=== PATIENT | female | born 1955 | race African-American/Black ===

== ENCOUNTER 2021-08-14 09:19 | Emergency (ER) | payer OTHER ==
--- OUTSIDE RECORDS SUMMARY | 2021-08-14 09:25 | XMS REPORT | Continuity of Care Document ---
:1955 Author Organization [facility] t Address Formerly [facility] [address] [place] [address] Care Team Providers Name Role Phone Doreen Attending Clinician Unavailable JHONATAN Attending Clinician Unavailable DR LIZET Attending Clinician Unavailable MOHSEN Attending Clinician Unavailable DR Sally TRIPP Attending Clinician Unavailable DR HANK Attending Clinician Unavailable DR ESTEFANY Attending Clinician Unavailable DR Doreen WILKES Attending Clinician Unavailable Doreen Admitting Clinician Unavailable Izabella Martinez Admitting Clinician Unavailable DR LIZET Admitting Clinician Unavailable MOHSEN Admitting Clinician Unavailable DR Sally TRIPP Admitting Clinician Unavailable DR HANK Admitting Clinician Unavailable DR ESTEFANY Admitting Clinician Unavailable DR OPAL Admitting Clinician Unavailable Payers Payer Name Policy Type Policy Number Effective Date Expiration Date S [facility] [id number] 2020 2024 PLAN MEDICARE SNP 00:00:00 00:00:00 [place] [id number] 2016 2016 MEDICAID 00:00:00 00:00:00 STAR+PLUS [id number] 1959 00:00:00 [id number] 1959 00:00:00 Problems This patient has no known problems. Allergies, Adverse Reactions, Alerts Allergy Allergy Status Severity Reaction(s) Onset Inactive Treating Comm ents Source Name Type Date Date Clinician lisinopr DA Active U UNKNOWN [facility] 07-31 Clear 00:00: [facility] aspirin DA Active U UNKNOWN [facility] 07-31 Clear 00:00: [facility] tramadol DA Active U UNKNOWN [facility] 07-31 Clear 00:00: [facility] Tramadol DA Active Unknown [facility] Aspirin DA Active Unknown [facility] Lisinopr DA Active Unknown [facility] Medications This patient has no known medications. Vital Signs Vital Name Observation Time Observation Value Comments Source Height 2021-07-27 09:20:00 165.1 CM Weight 2021-07-27 09:20:00 77.11 KG Height 2021-02-22 13:40:00 157.48 CM Weight 2021-02-22 13:40:00 70.76 KG Height 2020-08-26 06:23:00 170.18 CM Weight 2020-08-26 06:23:00 73.93 KG Procedures Procedure Date / Time Performed Performing Clinician Berhane hardy [id number] 2021-07-31 00:00:00 [facility] [id number] 2021-07-31 00:00:00 [facility] [id number] 2021-07-31 00:00:00 [facility] [id number] 2021-07-31 00:00:00 [facility] [id number] 2021-07-31 00:00:00 [facility] [id number] 2021-07-31 00:00:00 [facility] [id number] 2021-07-31 00:00:00 [facility] [id number] 2021-07-31 00:00:00 [facility] Encounters Start End Encounter Admission Attending Care Care Encounter Source Date/Time Date/Time Type Type Clinicians Facility Department ID 2021-07-31 Inpatient CLARE MajonathonALLYSON de dios INTE [id number] [facility] 01:04:00 Yesy [id number] [facility] 2020-09-29 Outpatient JHONATAN [facility] [id number] [place] 01:03:26 [facility] 2020-09-28 Outpatient JHONATAN [facility] [id number] [place] 01:03:23 [facility] 2020-09-26 Outpatient JHONATAN [facility] [id number] [place] 01:03:59 [facility] 2021-07-31 2021-08-12 Inpatient CLARE Logan HCAPM INTE [id number] [facility] 01:04:00 17:25:00 Nkoli 20 [facility] 2021-07-31 2021-07-31 Outpatient CLARE Logan HCACL LABO [id number] [facility] 07:33:00 07:33:00 Nkoli 03 [facility] 2021-07-27 2021-07-30 Inpatient E LIZET [facility] [id number] [place] 12:19:00 21:29:00 LAUREN [facility] 2021-04-27 2021-04-27 Outpatient FERGUSON_LILLY NDDANIELLE [facility] [address] [place] 05:54:00 05:54:00 HN [id number] [facility] 2021-02-22 2021-02-22 Outpatient E JOSEE [facility]CC [id number] [place] 13:37:00 16:19:00 ZUHAIR [facility] 2020-11-19 2020-11-19 Outpatient FERGUSON_JO CRISTOPHER [facility] [address] 02:39:00 02:39:[id number] 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 Negative resultsdo not p reclude SARS-CoV-2 infection and s hould not be usedas the sole basis for patient management deci sions. Negative results should be considered in the context of apatient's recent exposures, hist ory, presence of clinicalsigns a nd symptoms consistent with COVID-19. CBC W/AUTO [id number] 07:52:00 Test Item Value Reference Range Interpretation Comments WHITE BLOOD CELL 14.8 K/mm3 3.5-11.0 H (test code = WBC) RED BLOOD CELL (test 2.61 M/mm3 4.70-6.10 L code = RBC) HEMOGLOBIN (test code 8.1 G/DL 10.4-14.9 L = HGB) HEMATOCRIT (test code 25.0 % 31.5-44.1 L = HCT) MEAN CELL VOLUME 95.8 Fl 84.5-98.6 N (test code = MCV) MEAN CELL HGB (test 31.0 pg 27.0-34.2 N code = MCH) MEAN CELL HGB 32.4 G/DL 31.5-34.0 N CONCETRATION (test code = MCHC) RED CELL DISTRIBUTION 14.6 SD 11.5-14.5 H WIDTH (test code = RDW) PLATELET COUNT (test 431 K/mm3 150-450 N code = PLT) MEAN PLATELET VOLUME 9.90 fL 7.0-10.5 N (test code = MPV) NEUTROPHIL % (test 76.5 % 40-76 H code = NT%) IMMATURE GRANULOCYTE 1.6 % 0.0-5.0 N % (test code = IG%) LYMPHOCYTE % (test 10.5 % 20.5-51.1 L code = LY%) MONOCYTE % (test code 10.3 % 1.7-9.3 H = MO%) EOSINOPHIL % (test 1.0 % 0.0-6.0 N code = EO%) BASOPHIL % (test code 0.1 % 0.0-2.0 N = BA%) NUCLEATED RBC % (test 0.0 /100WBC% 0.0-1.0 N code = NRBC%) NEUTROPHIL # (test 11.3 K/mm3 1.8-7.6 H code = NT#) IMMATURE GRANULOCYTE 0.23 x10 3/uL 0.00-0.03 H # (test code = IG#) LYMPHOCYTE # (test 1.6 K/mm3 0.6-3.2 N code = LY#) MONOCYTE # (test code 1.5 K/mm3 0.3-1.1 H = MO#) EOSINOPHIL # (test 0.2 K/mm3 0.0-0.4 N code = EO#) BASOPHIL # (test code 0.0 K/mm3 0.0-0.1 N = BA#) NUCLEATED RBC # (test 0.0 K/mm3 0.0-0.1 N code = NRBC#) MANUAL DIFF REQUIRED NO DIFF/SCN CRITERIA aSLIDE REVIEW (test code = MDIFF) CONSISTA NT WITH AUTO DIFFERENTI AL. COMPREHENSIVE METABOLIC [id number] 10:17:00 Test Item Value Reference Range Interpretation Comments SODIUM (test code = NA) 138 mmol/L 134-147 N POTASSIUM (test code = 4.4 mmol/L 3.4-5.0 N K) CHLORIDE (test code = 106 mmol/L 100-108 N CL) CARBON DIOXIDE (test 28 mmol/L 21-32 N code = CO2) ANION GAP (test code = 4.0 GAP calc 4.0-15.0 N GAP) GLUCOSE (test code = 105 MG/DL 70-110 N GLU) BLOOD UREA NITROGEN 19 MG/DL 7-18 H (test code = BUN) GLOMERULAR FILTRATION >=60 max estimate >60 RATE (test code = GFR) estGFR CREATININE (test code = 0.8 MG/DL 0.6-1.0 N CREAT) TOTAL PROTEIN (test code 7.0 G/DL 6.4-8.2 N = PROT) ALBUMIN (test code = 2.4 G/DL 3.4-5.0 L ALB) GLOBULIN (test code = 4.6 GM/dL GLOB) ALBUMIN/GLOBULIN RATIO 0.5 RATIO 1.2-2.2 L (test code = A/G) CALCIUM (test code = CA) 9.3 MG/DL 8.5-10.1 N BILIRUBIN TOTAL (test 0.30 MG/DL 0.2-1.2 N code = BILT) SGOT/AST (test code = 54 Unit/L 15-37 H AST) SGPT/ALT (test code = 76 Unit/L 12-78 N ALT) ALKALINE PHOSPHATASE 170 Unit/L 45-117 H TOTAL (test code = ALKP) CBC W/AUTO [id number] 06:29:00 Test Item Value Reference Range Interpretation Comments WHITE BLOOD CELL (test code = 12.9 K/mm3 3.5-11.0 H WBC) RED BLOOD CELL (test code = 2.64 M/mm3 4.70-6.10 L RBC) HEMOGLOBIN (test code = HGB) 8.3 G/DL 10.4-14.9 L HEMATOCRIT (test code = HCT) 25.7 % 31.5-44.1 L MEAN CELL VOLUME (test code = 97.3 Fl 84.5-98.6 N MCV) MEAN CELL HGB (test code = MCH) 31.4 pg 27.0-34.2 N MEAN CELL HGB CONCETRATION 32.3 G/DL 31.5-34.0 N (test code = MCHC) RED CELL DISTRIBUTION WIDTH 14.6 SD 11.5-14.5 H (test code = RDW) PLATELET COUNT (test code = 399 K/mm3 150-450 N PLT) MEAN PLATELET VOLUME (test code 10.10 fL 7.0-10.5 N = MPV) NEUTROPHIL % (test code = NT%) 75.8 % 40-76 N IMMATURE GRANULOCYTE % (test 1.4 % 0.0-5.0 N code = IG%) LYMPHOCYTE % (test code = LY%) 10.9 % 20.5-51.1 L MONOCYTE % (test code = MO%) 10.2 % 1.7-9.3 H EOSINOPHIL % (test code = EO%) 1.5 % 0.0-6.0 N BASOPHIL % (test code = BA%) 0.2 % 0.0-2.0 N NUCLEATED RBC % (test code = 0.0 /100WBC% 0.0-1.0 N NRBC%) NEUTROPHIL # (test code = NT#) 9.8 K/mm3 1.8-7.6 H IMMATURE GRANULOCYTE # (test 0.18 x10 3/uL 0.00-0.03 H code = IG#) LYMPHOCYTE # (test code = LY#) 1.4 K/mm3 0.6-3.2 N MONOCYTE # (test code = MO#) 1.3 K/mm3 0.3-1.1 H EOSINOPHIL # (test code = EO#) 0.2 K/mm3 0.0-0.4 N BASOPHIL # (test code = BA#) 0.0 K/mm3 0.0-0.1 N NUCLEATED RBC # (test code = 0.0 K/mm3 0.0-0.1 N NRBC#) MANUAL DIFF REQUIRED (test code NO DIFF/SCN CRITERIA = MDIFF) CBC W/AUTO [id number] 07:34:00 Test Item Value Reference Range Interpretation Comments WHITE BLOOD CELL (test code = 12.4 K/mm3 3.5-11.0 H WBC) RED BLOOD CELL (test code = 2.41 M/mm3 4.70-6.10 L RBC) HEMOGLOBIN (test code = HGB) 7.8 G/DL 10.4-14.9 L HEMATOCRIT (test code = HCT) 23.3 % 31.5-44.1 L MEAN CELL VOLUME (test code = 96.7 Fl 84.5-98.6 N MCV) MEAN CELL HGB (test code = MCH) 32.4 pg 27.0-34.2 N MEAN CELL HGB CONCETRATION 33.5 G/DL 31.5-34.0 N (test code = MCHC) RED CELL DISTRIBUTION WIDTH 14.6 SD 11.5-14.5 H (test code = RDW) PLATELET COUNT (test code = 420 K/mm3 150-450 N PLT) MEAN PLATELET VOLUME (test code 10.90 fL 7.0-10.5 H = MPV) NEUTROPHIL % (test code = NT%) 72.8 % 40-76 N IMMATURE GRANULOCYTE % (test 1.5 % 0.0-5.0 N code = IG%) LYMPHOCYTE % (test code = LY%) 13.3 % 20.5-51.1 L MONOCYTE % (test code = MO%) 10.5 % 1.7-9.3 H EOSINOPHIL % (test code = EO%) 1.7 % 0.0-6.0 N BASOPHIL % (test code = BA%) 0.2 % 0.0-2.0 N NUCLEATED RBC % (test code = 0.0 /100WBC% 0.0-1.0 N NRBC%) NEUTROPHIL # (test code = NT#) 9.0 K/mm3 1.8-7.6 H IMMATURE GRANULOCYTE # (test 0.18 x10 3/uL 0.00-0.03 H code = IG#) LYMPHOCYTE # (test code = LY#) 1.6 K/mm3 0.6-3.2 N MONOCYTE # (test code = MO#) 1.3 K/mm3 0.3-1.1 H EOSINOPHIL # (test code = EO#) 0.2 K/mm3 0.0-0.4 N BASOPHIL # (test code = BA#) 0.0 K/mm3 0.0-0.1 N NUCLEATED RBC # (test code = 0.0 K/mm3 0.0-0.1 N NRBC#) MANUAL DIFF REQUIRED (test code NO DIFF/SCN CRITERIA = MDIFF) CBC W/AUTO [id number] 05:17:00 Test Item Value Reference Range Interpretation Comments WHITE BLOOD CELL (test code = 13.2 K/mm3 3.5-11.0 H WBC) RED BLOOD CELL (test code = 2.53 M/mm3 4.70-6.10 L RBC) HEMOGLOBIN (test code = HGB) 8.0 G/DL 10.4-14.9 L HEMATOCRIT (test code = HCT) 24.4 % 31.5-44.1 L MEAN CELL VOLUME (test code = 96.4 Fl 84.5-98.6 N MCV) MEAN CELL HGB (test code = MCH) 31.6 pg 27.0-34.2 N MEAN CELL HGB CONCETRATION 32.8 G/DL 31.5-34.0 N (test code = MCHC) RED CELL DISTRIBUTION WIDTH 14.7 SD 11.5-14.5 H (test code = RDW) PLATELET COUNT (test code = 324 K/mm3 150-450 N PLT) MEAN PLATELET VOLUME (test code 10.60 fL 7.0-10.5 H = MPV) NEUTROPHIL % (test code = NT%) 69.9 % 40-76 N IMMATURE GRANULOCYTE % (test 1.1 % 0.0-5.0 N code = IG%) LYMPHOCYTE % (test code = LY%) 16.2 % 20.5-51.1 L MONOCYTE % (test code = MO%) 10.4 % 1.7-9.3 H EOSINOPHIL % (test code = EO%) 2.2 % 0.0-6.0 N BASOPHIL % (test code = BA%) 0.2 % 0.0-2.0 N NUCLEATED RBC % (test code = 0.0 /100WBC% 0.0-1.0 N NRBC%) NEUTROPHIL # (test code = NT#) 9.2 K/mm3 1.8-7.6 H IMMATURE GRANULOCYTE # (test 0.14 x10 3/uL 0.00-0.03 H code = IG#) LYMPHOCYTE # (test code = LY#) 2.1 K/mm3 0.6-3.2 N MONOCYTE # (test code = MO#) 1.4 K/mm3 0.3-1.1 H EOSINOPHIL # (test code = EO#) 0.3 K/mm3 0.0-0.4 N BASOPHIL # (test code = BA#) 0.0 K/mm3 0.0-0.1 N NUCLEATED RBC # (test code = 0.0 K/mm3 0.0-0.1 N NRBC#) MANUAL DIFF REQUIRED (test code NO DIFF/SCN CRITERIA = MDIFF) CBC W/AUTO [id number] 06:57:00 Test Item Value Reference Range Interpretation Comments WHITE BLOOD CELL 13.9 K/mm3 3.5-11.0 H (test code = WBC) RED BLOOD CELL (test 2.51 M/mm3 4.70-6.10 L code = RBC) HEMOGLOBIN (test code 7.9 G/DL 10.4-14.9 L = HGB) HEMATOCRIT (test code 24.3 % 31.5-44.1 L = HCT) MEAN CELL VOLUME 96.8 Fl 84.5-98.6 N (test code = MCV) MEAN CELL HGB (test 31.5 pg 27.0-34.2 N code = MCH) MEAN CELL HGB 32.5 G/DL 31.5-34.0 N CONCETRATION (test code = MCHC) RED CELL DISTRIBUTION 14.6 SD 11.5-14.5 H WIDTH (test code = RDW) PLATELET COUNT (test 274 K/mm3 150-450 N code = PLT) MEAN PLATELET VOLUME 11.50 fL 7.0-10.5 H (test code = MPV) NEUTROPHIL % (test 69.7 % 40-76 N code = NT%) IMMATURE GRANULOCYTE 1.2 % 0.0-5.0 N % (test code = IG%) LYMPHOCYTE % (test 15.0 % 20.5-51.1 L code = LY%) MONOCYTE % (test code 12.4 % 1.7-9.3 H = MO%) EOSINOPHIL % (test 1.4 % 0.0-6.0 N code = EO%) BASOPHIL % (test code 0.3 % 0.0-2.0 N = BA%) NUCLEATED RBC % (test 0.0 /100WBC% 0.0-1.0 N code = NRBC%) NEUTROPHIL # (test 9.7 K/mm3 1.8-7.6 H code = NT#) IMMATURE GRANULOCYTE 0.16 x10 3/uL 0.00-0.03 H # (test code = IG#) LYMPHOCYTE # (test 2.1 K/mm3 0.6-3.2 N code = LY#) MONOCYTE # (test code 1.7 K/mm3 0.3-1.1 H = MO#) EOSINOPHIL # (test 0.2 K/mm3 0.0-0.4 N code = EO#) BASOPHIL # (test code 0.0 K/mm3 0.0-0.1 N = BA#) NUCLEATED RBC # (test 0.0 K/mm3 0.0-0.1 N code = NRBC#) MANUAL DIFF REQUIRED NO DIFF/SCN CRITERIA SLIDE R EVIEW (test code = MDIFF) CONSISTA NT WITH AUTO DIFFERENTI AL. THROMBOPLASTIN TIME [id number] 06:02:00 Test Item Value Reference Range Interpretation Comments THROMBOPLASTIN TIME PARTIAL 35.2 SECONDS 26-35 H (test code = PTT) CBC W/AUTO [id number] 08:17:00 Test Item Value Reference Range Interpretation Comments WHITE BLOOD CELL (test code = 12.5 K/mm3 3.5-11.0 H WBC) RED BLOOD CELL (test code = 2.78 M/mm3 4.70-6.10 L RBC) HEMOGLOBIN (test code = HGB) 8.9 G/DL 10.4-14.9 L HEMATOCRIT (test code = HCT) 27.3 % 31.5-44.1 L MEAN CELL VOLUME (test code = 98.2 Fl 84.5-98.6 N MCV) MEAN CELL HGB (test code = MCH) 32.0 pg 27.0-34.2 N MEAN CELL HGB CONCETRATION 32.6 G/DL 31.5-34.0 N (test code = MCHC) RED CELL DISTRIBUTION WIDTH 14.3 SD 11.5-14.5 N (test code = RDW) PLATELET COUNT (test code = 242 K/mm3 150-450 N PLT) MEAN PLATELET VOLUME (test code 11.30 fL 7.0-10.5 H = MPV) NEUTROPHIL % (test code = NT%) 68.0 % 40-76 N IMMATURE GRANULOCYTE % (test 1.0 % 0.0-5.0 N code = IG%) LYMPHOCYTE % (test code = LY%) 13.8 % 20.5-51.1 L MONOCYTE % (test code = MO%) 15.5 % 1.7-9.3 H EOSINOPHIL % (test code = EO%) 1.3 % 0.0-6.0 N BASOPHIL % (test code = BA%) 0.4 % 0.0-2.0 N NUCLEATED RBC % (test code = 0.0 /100WBC% 0.0-1.0 N NRBC%) NEUTROPHIL # (test code = NT#) 8.5 K/mm3 1.8-7.6 H IMMATURE GRANULOCYTE # (test 0.12 x10 3/uL 0.00-0.03 H code = IG#) LYMPHOCYTE # (test code = LY#) 1.7 K/mm3 0.6-3.2 N MONOCYTE # (test code = MO#) 1.9 K/mm3 0.3-1.1 H EOSINOPHIL # (test code = EO#) 0.2 K/mm3 0.0-0.4 N BASOPHIL # (test code = BA#) 0.1 K/mm3 0.0-0.1 N NUCLEATED RBC # (test code = 0.0 K/mm3 0.0-0.1 N NRBC#) MANUAL DIFF REQUIRED (test code NO DIFF/SCN CRITERIA = MDIFF) BASIC METABOLIC [id number] 06:46:00 Test Item Value Reference Range Interpretation Comments SODIUM (test code = NA) 139 mmol/L 134-147 N POTASSIUM (test code = 4.1 mmol/L 3.4-5.0 N K) CHLORIDE (test code = 110 mmol/L 100-108 H CL) CARBON DIOXIDE (test 24 mmol/L 21-32 N code = CO2) ANION GAP (test code = 5.0 GAP calc 4.0-15.0 N GAP) GLUCOSE (test code = 93 MG/DL 70-110 N GLU) BLOOD UREA NITROGEN 14 MG/DL 7-18 N (test code = BUN) GLOMERULAR FILTRATION >=60 max estimate >60 RATE (test code = GFR) estGFR CREATININE (test code = 0.7 MG/DL 0.6-1.0 N CREAT) CALCIUM (test code = CA) 8.7 MG/DL 8.5-10.1 N THROMBOPLASTIN TIME [id number] 06:44:00 Test Item Value Reference Range Interpretation Comments THROMBOPLASTIN TIME PARTIAL 32.9 SECONDS 26-35 N (test code = PTT) CBC W/AUTO [id number] 23:06:00 Test Item Value Reference Range Interpretation Comments WHITE BLOOD CELL (test code = 13.9 K/mm3 3.5-11.0 H WBC) RED BLOOD CELL (test code = RBC) 2.84 M/mm3 4.70-6.10 L HEMOGLOBIN (test code = HGB) 9.1 G/DL 10.4-14.9 L HEMATOCRIT (test code = HCT) 27.9 % 31.5-44.1 L MEAN CELL VOLUME (test code = 98.2 Fl 84.5-98.6 N MCV) MEAN CELL HGB (test code = MCH) 32.0 pg 27.0-34.2 N MEAN CELL HGB CONCETRATION (test 32.6 G/DL 31.5-34.0 N code = MCHC) RED CELL DISTRIBUTION WIDTH 14.2 SD 11.5-14.5 N (test code = RDW) PLATELET COUNT (test code = PLT) 214 K/mm3 150-450 N MEAN PLATELET VOLUME (test code 11.50 fL 7.0-10.5 H = MPV) NEUTROPHIL % (test code = NT%) % 40-76 N IMMATURE GRANULOCYTE % (test % 0.0-5.0 N code = IG%) LYMPHOCYTE % (test code = LY%) % 20.5-51.1 L MONOCYTE % (test code = MO%) % 1.7-9.3 H EOSINOPHIL % (test code = EO%) % 0.0-6.0 N BASOPHIL % (test code = BA%) % 0.0-2.0 N NUCLEATED RBC % (test code = /100WBC% 0.0-1.0 N NRBC%) NEUTROPHIL # (test code = NT#) K/mm3 1.8-7.6 H IMMATURE GRANULOCYTE # (test x10 3/uL 0.00-0.03 H code = IG#) LYMPHOCYTE # (test code = LY#) K/mm3 0.6-3.2 N MONOCYTE # (test code = MO#) K/mm3 0.3-1.1 H EOSINOPHIL # (test code = EO#) K/mm3 0.0-0.4 N BASOPHIL # (test code = BA#) K/mm3 0.0-0.1 N NUCLEATED RBC # (test code = K/mm3 0.0-0.1 N NRBC#) MANUAL DIFF REQUIRED (test code YES DIFF/SCN CRITERIA = MDIFF) WBC [id number] 23:06:00 Test Item Value Reference Range Interpretation Comments SEGMENTED NEUTROPHILS (test 71 % 40-75 N code = SEG) LYMPHOCYTE (test code = 16 % 18.7-40.6 L LYMPH) BAND NEUTROPHIL (test code 2 % 0-8 N = BAND) ATYPICAL LYMPH (test code = % 0-0 ALYMPH) MONOCYTE (test code = MON) 10 % 3.8-11.4 N EOSINOPHIL (test code = 1 % 0.0-4.1 N EOS) PLATELET ESTIMATE (test ADEQUATE THOUSAND ADEQUATE code = PLTEST) PLATELET MORPHOLOGY (test NORMAL code = PLTMORPH) THROMBOPLASTIN TIME [id number] 14:56:00 Test Item Value Reference Range Interpretation Comments THROMBOPLASTIN TIME PARTIAL 39.7 SECONDS 26-35 H (test code = PTT) BASIC METABOLIC [id number] 05:54:00 Test Item Value Reference Range Interpretation Comments SODIUM (test code = NA) 140 mmol/L 134-147 N POTASSIUM (test code = 3.4 mmol/L 3.4-5.0 N K) CHLORIDE (test code = 109 mmol/L 100-108 H CL) CARBON DIOXIDE (test 26 mmol/L 21-32 N code = CO2) ANION GAP (test code = 5.0 GAP calc 4.0-15.0 N GAP) GLUCOSE (test code = 96 MG/DL 70-110 N GLU) BLOOD UREA NITROGEN 13 MG/DL 7-18 N (test code = BUN) GLOMERULAR FILTRATION >=60 max estimate >60 RATE (test code = GFR) estGFR CREATININE (test code = 0.9 MG/DL 0.6-1.0 N CREAT) CALCIUM (test code = CA) 7.9 MG/DL 8.5-10.1 L THROMBOPLASTIN TIME [id number] 05:48:00 Test Item Value Reference Range Interpretation Comments THROMBOPLASTIN TIME PARTIAL 40.7 SECONDS 26-35 H (test code = PTT) THROMBOPLASTIN TIME [id number] 23:23:00 Test Item Value Reference Range Interpretation Comments THROMBOPLASTIN TIME PARTIAL 50.9 SECONDS 26-35 H (test code = PTT) THROMBOPLASTIN TIME [id number] 16:51:00 Test Item Value Reference Range Interpretation Comments THROMBOPLASTIN TIME PARTIAL 45.1 SECONDS 26-35 H (test code = PTT) COAGULATION TIME [id number] 10:50:00 Test Item Value Reference Range Interpretation Comments COAGULATION TIME ACTIVATED (test 267 SECistat 74-125 H code = ACT) COAGULATION TIME [id number] 10:50:00 Test Item Value Reference Range Interpretation Comments COAGULATION TIME ACTIVATED (test 258 SECistat 74-125 H code = ACT) COAGULATION TIME [id number] 10:50:00 Test Item Value Reference Range Interpretation Comments COAGULATION TIME ACTIVATED (test 160 SECistat 74-125 H code = ACT) CBC W/AUTO [id number] 10:26:00 Test Item Value Reference Range Interpretation Comments WHITE BLOOD CELL (test code = 12.2 K/mm3 3.5-11.0 H WBC) RED BLOOD CELL (test code = 3.10 M/mm3 4.70-6.10 L RBC) HEMOGLOBIN (test code = HGB) 9.9 G/DL 10.4-14.9 L HEMATOCRIT (test code = HCT) 29.6 % 31.5-44.1 L MEAN CELL VOLUME (test code = 95.5 Fl 84.5-98.6 N MCV) MEAN CELL HGB (test code = MCH) 31.9 pg 27.0-34.2 N MEAN CELL HGB CONCETRATION 33.4 G/DL 31.5-34.0 N (test code = MCHC) RED CELL DISTRIBUTION WIDTH 14.3 SD 11.5-14.5 N (test code = RDW) PLATELET COUNT (test code = 188 K/mm3 150-450 N PLT) MEAN PLATELET VOLUME (test code 11.60 fL 7.0-10.5 H = MPV) NEUTROPHIL % (test code = NT%) 73.4 % 40-76 N IMMATURE GRANULOCYTE % (test 0.7 % 0.0-5.0 N code = IG%) LYMPHOCYTE % (test code = LY%) 9.0 % 20.5-51.1 L MONOCYTE % (test code = MO%) 15.9 % 1.7-9.3 H EOSINOPHIL % (test code = EO%) 0.8 % 0.0-6.0 N BASOPHIL % (test code = BA%) 0.2 % 0.0-2.0 N NUCLEATED RBC % (test code = 0.0 /100WBC% 0.0-1.0 N NRBC%) NEUTROPHIL # (test code = NT#) 8.9 K/mm3 1.8-7.6 H IMMATURE GRANULOCYTE # (test 0.08 x10 3/uL 0.00-0.03 H code = IG#) LYMPHOCYTE # (test code = LY#) 1.1 K/mm3 0.6-3.2 N MONOCYTE # (test code = MO#) 1.9 K/mm3 0.3-1.1 H EOSINOPHIL # (test code = EO#) 0.1 K/mm3 0.0-0.4 N BASOPHIL # (test code = BA#) 0.0 K/mm3 0.0-0.1 N NUCLEATED RBC # (test code = 0.0 K/mm3 0.0-0.1 N NRBC#) MANUAL DIFF REQUIRED (test code NO DIFF/SCN CRITERIA = MDIFF) - XR FLUOROSCOPY 0-60 [id number] 08:25:00 [facility] : 1955 Sex: F Name: EMEKA JUSTIN [facility] : 1955 Age/S: 65 / F [id number] [place] [address] [address] Unit #: [id number] Loc: [place] [address] Phys: Yesy Logan MD Acct: [id number] Dis Date: Status: ADM IN PHONE #: [phone] Exam Date: 08/03/20211814 FAX #: Reason: THROMBECTOMY EXAMS: CPT: [id number] XR FLUOROSCOPY 0-60 MIN 24224 Fluoro Time: 161 SEC DAP (Gy m2): Air Kerma (mGy): EXAM: - XR FLUOROSCOPY 0-60 MIN HISTORY: THROMBECTOMY Location code: C3 COMPARISON: None available time of interpretation. FINDINGS: Intraoperative fluoroscopy was provided for Yesy Logan MD. Radiologist was not present for the procedure. 15 fluoroscopy images were obtained. Please see surgical report. IMPRESSION: 1. Asabove. Fluoroscopy time: 2 minutes 41 seconds Cumulative dose: 17.165 mGy at 0825 Reported and signed by: Radha Martinez M.D. CC: Yesy Logan MD; Abel Martinez MD PAGE 1 Signed Report Name[facility] [place] : 1955 Age/S: 65 / F [id number] Unit #: [id number] Loc: [place] [address] Phys: Yesy Logan MD Acct: [id number] Dis Date: Status: ADM IN PHONE #: [phone] Exam Date: 08/03/2021 1815 FAX #: Reason: THROMBECTOMY EXAMS: CPT: [id number] XR FLUOROSCOPY 0-60 MIN 97820 Fluoro Time: 161 SEC DAP (Gy m2): Air Kerma (mGy): <Continued> Technologist: Delfina Barone RT(R)(CT) Trnscb Date/Time: 08/04/2021 (824) [id number] Orig Print D/T: S: 08/04/2021 (3212) PAGE 2 SignedReportBASIC METABOLIC [id number] 06:26:00 Test Item Value Reference Range Interpretation Comments SODIUM (test code = NA) 137 mmol/L 134-147 N POTASSIUM (test code = 3.4 mmol/L 3.4-5.0 N K) CHLORIDE (test code = 106 mmol/L 100-108 N CL) CARBON DIOXIDE (test 24 mmol/L 21-32 N code = CO2) ANION GAP (test code = 7.0 GAP calc 4.0-15.0 N GAP) GLUCOSE (test code = 121 MG/DL 70-110 H GLU) BLOOD UREA NITROGEN 7 MG/DL 7-18 N (test code = BUN) GLOMERULAR FILTRATION >=60 max estimate >60 RATE (test code = GFR) estGFR CREATININE (test code = 0.6 MG/DL 0.6-1.0 N CREAT) CALCIUM (test code = CA) 8.5 MG/DL 8.5-10.1 N THROMBOPLASTIN TIME [id number] 06:22:00 Test Item Value Reference Range Interpretation Comments THROMBOPLASTIN TIME PARTIAL 43.7 SECONDS 26-35 H (test code = PTT) THROMBOPLASTIN TIME [id number] 23:20:00 Test Item Value Reference Range Interpretation Comments THROMBOPLASTIN TIME PARTIAL 116.7 SECONDS 26-35 HH (test code = PTT) CBC W/AUTO [id number] 22:03:00 Test Item Value Reference Range Interpretation Comments WHITE BLOOD CELL (test code = 11.9 K/mm3 3.5-11.0 H WBC) RED BLOOD CELL (test code = 3.34 M/mm3 4.70-6.10 L RBC) HEMOGLOBIN (test code = HGB) 10.6 G/DL 10.4-14.9 N HEMATOCRIT (test code = HCT) 32.4 % 31.5-44.1 N MEAN CELL VOLUME (test code = 97.0 Fl 84.5-98.6 N MCV) MEAN CELL HGB (test code = MCH) 31.7 pg 27.0-34.2 N MEAN CELL HGB CONCETRATION 32.7 G/DL 31.5-34.0 N (test code = MCHC) RED CELL DISTRIBUTION WIDTH 14.5 SD 11.5-14.5 N (test code = RDW) PLATELET COUNT (test code = 189 K/mm3 150-450 N PLT) MEAN PLATELET VOLUME (test code 12.60 fL 7.0-10.5 H = MPV) NEUTROPHIL % (test code = NT%) 67.3 % 40-76 N IMMATURE GRANULOCYTE % (test 0.7 % 0.0-5.0 N code = IG%) LYMPHOCYTE % (test code = LY%) 17.1 % 20.5-51.1 L MONOCYTE % (test code = MO%) 13.3 % 1.7-9.3 H EOSINOPHIL % (test code = EO%) 1.3 % 0.0-6.0 N BASOPHIL % (test code = BA%) 0.3 % 0.0-2.0 N NUCLEATED RBC % (test code = 0.0 /100WBC% 0.0-1.0 N NRBC%) NEUTROPHIL # (test code = NT#) 8.0 K/mm3 1.8-7.6 H IMMATURE GRANULOCYTE # (test 0.08 x10 3/uL 0.00-0.03 H code = IG#) LYMPHOCYTE # (test code = LY#) 2.0 K/mm3 0.6-3.2 N MONOCYTE # (test code = MO#) 1.6 K/mm3 0.3-1.1 H EOSINOPHIL # (test code = EO#) 0.2 K/mm3 0.0-0.4 N BASOPHIL # (test code = BA#) 0.0 K/mm3 0.0-0.1 N NUCLEATED RBC # (test code = 0.0 K/mm3 0.0-0.1 N NRBC#) MANUAL DIFF REQUIRED (test code NO DIFF/SCN CRITERIA = MDIFF) Comment: IF NOT ALREADY DONE WITHIN THE LAST 24 HOURSTHROMBOPLASTIN TIME [id number] 12:20:00 Test Item Value Reference Range Interpretation Comments THROMBOPLASTIN TIME PARTIAL 68.7 SECONDS 26-35 H (test code = PTT) CBC W/AUTO [id number] 08:45:00 Test Item Value Reference Range Interpretation Comments WHITE BLOOD CELL (test code = 11.0 K/mm3 3.5-11.0 N WBC) RED BLOOD CELL (test code = 3.80 M/mm3 4.70-6.10 L RBC) HEMOGLOBIN (test code = HGB) 12.0 G/DL 10.4-14.9 N HEMATOCRIT (test code = HCT) 36.1 % 31.5-44.1 N MEAN CELL VOLUME (test code = 95.0 Fl 84.5-98.6 N MCV) MEAN CELL HGB (test code = MCH) 31.6 pg 27.0-34.2 N MEAN CELL HGB CONCETRATION 33.2 G/DL 31.5-34.0 N (test code = MCHC) RED CELL DISTRIBUTION WIDTH 14.5 SD 11.5-14.5 N (test code = RDW) PLATELET COUNT (test code = 177 K/mm3 150-450 N PLT) MEAN PLATELET VOLUME (test code 12.50 fL 7.0-10.5 H = MPV) NEUTROPHIL % (test code = NT%) 73.1 % 40-76 N IMMATURE GRANULOCYTE % (test 0.5 % 0.0-5.0 N code = IG%) LYMPHOCYTE % (test code = LY%) 11.9 % 20.5-51.1 L MONOCYTE % (test code = MO%) 13.1 % 1.7-9.3 H EOSINOPHIL % (test code = EO%) 1.2 % 0.0-6.0 N BASOPHIL % (test code = BA%) 0.2 % 0.0-2.0 N NUCLEATED RBC % (test code = 0.0 /100WBC% 0.0-1.0 N NRBC%) NEUTROPHIL # (test code = NT#) 8.1 K/mm3 1.8-7.6 H IMMATURE GRANULOCYTE # (test 0.06 x10 3/uL 0.00-0.03 H code = IG#) LYMPHOCYTE # (test code = LY#) 1.3 K/mm3 0.6-3.2 N MONOCYTE # (test code = MO#) 1.4 K/mm3 0.3-1.1 H EOSINOPHIL # (test code = EO#) 0.1 K/mm3 0.0-0.4 N BASOPHIL # (test code = BA#) 0.0 K/mm3 0.0-0.1 N NUCLEATED RBC # (test code = 0.0 K/mm3 0.0-0.1 N NRBC#) MANUAL DIFF REQUIRED (test code NO DIFF/SCN CRITERIA = MDIFF) BASIC METABOLIC [id number] 06:35:00 Test Item Value Reference Range Interpretation Comments SODIUM (test code = NA) 135 mmol/L 134-147 N POTASSIUM (test code = 3.6 mmol/L 3.4-5.0 N K) CHLORIDE (test code = 106 mmol/L 100-108 N CL) CARBON DIOXIDE (test 25 mmol/L 21-32 N code = CO2) ANION GAP (test code = 4.0 GAP calc 4.0-15.0 N GAP) GLUCOSE (test code = 105 MG/DL 70-110 N GLU) BLOOD UREA NITROGEN 9 MG/DL 7-18 N (test code = BUN) GLOMERULAR FILTRATION >=60 max estimate >60 RATE (test code = GFR) estGFR CREATININE (test code = 0.7 MG/DL 0.6-1.0 N CREAT) CALCIUM (test code = CA) 9.2 MG/DL 8.5-10.1 N THROMBOPLASTIN TIME [id number] 06:27:00 Test Item Value Reference Range Interpretation Comments THROMBOPLASTIN TIME PARTIAL 64.9 SECONDS 26-35 H (test code = PTT) THROMBOPLASTIN TIME [id number] 01:04:00 Test Item Value Reference Range Interpretation Comments THROMBOPLASTIN TIME PARTIAL 62.9 SECONDS 26-35 H (test code = PTT) - XR CHEST 1 [id number] 21:09:00 [facility] 1955 Sex: F Name: EMEKA JUSTIN Mineral : 1955 Age/S: 65 / F [id number] [place] [address] Unit #: [id number] Loc: [place] [address] Phys: Glenny Alberts MD Acct: [id number] Dis Date: Status: ADM IN PHONE #: [phone] Exam Date: 08/02/20212054 FAX #: Reason: Post Op EXAMS: CPT: [id number] XR CHEST 1 V 96440 Fluoro Time: DAP (Gy m2): Air Kerma (mGy): HISTORY: Shortness of breath TECHNIQUE: AP chest x-ray COMPARISON: 07/31/21 FINDINGS: Low lung volumes. No pneumothorax. No airspace consolidation or pleural effusion. Elevated r ight hemidiaphragm. Mild cardiomegaly. Mediastinal silhouette is unremarkable. Thoracic spondylosis. IMPRESSION: No radiographic evidence of acute cardiopulmonary process. LOCATION: [facility] Reported and signed by:HERACLIO GAMBOA DO CC: Glenny Alberts MD; Yesy Logan MD; Abel Martinez MD PAGE 1 Signed Report Name: EMEKA JUSTIN Mineral : 1955 Age/S: 65 / F [address] [place] [address] Unit#: [id number] Loc: [place] [address] Phys: Glenny Alberts MD Acct: [id number] Dis Date: Status: ADM IN PHONE #: [phone] Exam Date: 08/02/20212054 FAX #: Reason: Post Op EXAMS: CPT: [id number] XR CHEST 1 V 35500 Fluoro Time: DAP (Gy m2): Air Kerma (mGy): <Continued> Technologist: Lebron Alvarado RT(R) Trnscb Date/Time: 08/02/2021 (2108) CleopatraP1 Orig Print D/T: S: 08/02/2021 (2111) PAGE 2 Signed [id number] 19:58:00 Test Item Value Reference Range Interpretation Comments HEMATOCRIT (test code = HCT) 39.2 % 31.5-44.1 N PLATELET [id number] 19:58:00 Test Item Value Reference Range Interpretation Comments PLATELET COUNT (test code = PLT) 167 K/mm3 150-450 N THROMBOPLASTIN TIME [id number] 19:53:00 Test Item Value Reference Range Interpretation Comments THROMBOPLASTIN TIME PARTIAL 38.9 SECONDS 26-35 H (test code = PTT) COMPREHENSIVE METABOLIC [id number] 13:21:00 Test Item Value Reference Range Interpretation Comments SODIUM (test code = NA) 137 mmol/L 134-147 N POTASSIUM (test code = 3.8 mmol/L 3.4-5.0 N K) CHLORIDE (test code = 109 mmol/L 100-108 H CL) CARBON DIOXIDE (test 24 mmol/L 21-32 N code = CO2) ANION GAP (test code = 4.0 GAP calc 4.0-15.0 N GAP) GLUCOSE (test code = 109 MG/DL 70-110 N GLU) BLOOD UREA NITROGEN 11 MG/DL 7-18 N (test code = BUN) GLOMERULAR FILTRATION >=60 max estimate >60 RATE (test code = GFR) estGFR CREATININE (test code = 0.8 MG/DL 0.6-1.0 N CREAT) TOTAL PROTEIN (test code 6.3 G/DL 6.4-8.2 L = PROT) ALBUMIN (test code = 2.6 G/DL 3.4-5.0 L ALB) GLOBULIN (test code = 3.7 GM/dL GLOB) ALBUMIN/GLOBULIN RATIO 0.7 RATIO 1.2-2.2 L (test code = A/G) CALCIUM (test code = CA) 9.1 MG/DL 8.5-10.1 N BILIRUBIN TOTAL (test 0.90 MG/DL 0.2-1.2 N code = BILT) SGOT/AST (test code = 168 Unit/L 15-37 H AST) SGPT/ALT (test code = 123 Unit/L 12-78 H ALT) ALKALINE PHOSPHATASE 87 Unit/L 45-117 N TOTAL (test code = ALKP) THROMBOPLASTIN TIME [id number] 12:49:00 Test Item Value Reference Range Interpretation Comments THROMBOPLASTIN TIME PARTIAL 33.7 SECONDS 26-35 N (test code = PTT) [id number] 12:49:00 Test Item Value Reference Range Interpretation Comments FIBRINOGEN (test code = FIB) 612 mg/dL 185-453 H CBC W/AUTO [id number] 10:38:00 Test Item Value Reference Range Interpretation Comments WHITE BLOOD CELL (test code = 11.3 K/mm3 3.5-11.0 H WBC) RED BLOOD CELL (test code = 4.00 M/mm3 4.70-6.10 L RBC) HEMOGLOBIN (test code = HGB) 12.5 G/DL 10.4-14.9 N HEMATOCRIT (test code = HCT) 38.6 % 31.5-44.1 N MEAN CELL VOLUME (test code = 96.5 Fl 84.5-98.6 N MCV) MEAN CELL HGB (test code = MCH) 31.3 pg 27.0-34.2 N MEAN CELL HGB CONCETRATION 32.4 G/DL 31.5-34.0 N (test code = MCHC) RED CELL DISTRIBUTION WIDTH 14.7 SD 11.5-14.5 H (test code = RDW) PLATELET COUNT (test code = 160 K/mm3 150-450 N PLT) MEAN PLATELET VOLUME (test code 12.60 fL 7.0-10.5 H = MPV) NEUTROPHIL % (test code = NT%) 74.1 % 40-76 N IMMATURE GRANULOCYTE % (test 0.6 % 0.0-5.0 N code = IG%) LYMPHOCYTE % (test code = LY%) 11.2 % 20.5-51.1 L MONOCYTE % (test code = MO%) 13.2 % 1.7-9.3 H EOSINOPHIL % (test code = EO%) 0.7 % 0.0-6.0 N BASOPHIL % (test code = BA%) 0.2 % 0.0-2.0 N NUCLEATED RBC % (test code = 0.0 /100WBC% 0.0-1.0 N NRBC%) NEUTROPHIL # (test code = NT#) 8.4 K/mm3 1.8-7.6 H IMMATURE GRANULOCYTE # (test 0.07 x10 3/uL 0.00-0.03 H code = IG#) LYMPHOCYTE # (test code = LY#) 1.3 K/mm3 0.6-3.2 N MONOCYTE # (test code = MO#) 1.5 K/mm3 0.3-1.1 H EOSINOPHIL # (test code = EO#) 0.1 K/mm3 0.0-0.4 N BASOPHIL # (test code = BA#) 0.0 K/mm3 0.0-0.1 N NUCLEATED RBC # (test code = 0.0 K/mm3 0.0-0.1 N NRBC#) MANUAL DIFF REQUIRED (test code NO DIFF/SCN CRITERIA = MDIFF) Comment: q6hr labs while lysis ongoingCBC W/AUTO [id number] 05:57:00 Test Item Value Reference Range Interpretation Comments WHITE BLOOD CELL 11.0 K/mm3 3.5-11.0 N (test code = WBC) RED BLOOD CELL (test 4.19 M/mm3 4.70-6.10 L code = RBC) HEMOGLOBIN (test code 13.2 G/DL 10.4-14.9 N = HGB) HEMATOCRIT (test code 39.8 % 31.5-44.1 N = HCT) MEAN CELL VOLUME 95.0 Fl 84.5-98.6 N (test code = MCV) MEAN CELL HGB (test 31.5 pg 27.0-34.2 N code = MCH) MEAN CELL HGB 33.2 G/DL 31.5-34.0 N CONCETRATION (test code = MCHC) RED CELL DISTRIBUTION 14.7 SD 11.5-14.5 H WIDTH (test code = RDW) PLATELET COUNT (test 159 K/mm3 150-450 N code = PLT) MEAN PLATELET VOLUME 12.20 fL 7.0-10.5 H (test code = MPV) NEUTROPHIL % (test 67.4 % 40-76 N code = NT%) IMMATURE GRANULOCYTE 0.5 % 0.0-5.0 N % (test code = IG%) LYMPHOCYTE % (test 13.9 % 20.5-51.1 L code = LY%) MONOCYTE % (test code 16.8 % 1.7-9.3 H = MO%) EOSINOPHIL % (test 1.0 % 0.0-6.0 N code = EO%) BASOPHIL % (test code 0.4 % 0.0-2.0 N = BA%) NUCLEATED RBC % (test 0.0 /100WBC% 0.0-1.0 N code = NRBC%) NEUTROPHIL # (test 7.4 K/mm3 1.8-7.6 N code = NT#) IMMATURE GRANULOCYTE 0.05 x10 3/uL 0.00-0.03 H # (test code = IG#) LYMPHOCYTE # (test 1.5 K/mm3 0.6-3.2 N code = LY#) MONOCYTE # (test code 1.8 K/mm3 0.3-1.1 H = MO#) EOSINOPHIL # (test 0.1 K/mm3 0.0-0.4 N code = EO#) BASOPHIL # (test code 0.0 K/mm3 0.0-0.1 N = BA#) NUCLEATED RBC # (test 0.0 K/mm3 0.0-0.1 N code = NRBC#) MANUAL DIFF REQUIRED NO DIFF/SCN CRITERIA SLIDE R EVIEW (test code = MDIFF) CONSISTA NT WITH AUTO DIFFERENTI AL. THROMBOPLASTIN TIME [id number] 05:19:00 Test Item Value Reference Range Interpretation Comments THROMBOPLASTIN TIME PARTIAL 36.2 SECONDS 26-35 H (test code = PTT) [id number] 05:19:00 Test Item Value Reference Range Interpretation Comments FIBRINOGEN (test code = FIB) 743 mg/dL 185-453 H BASIC METABOLIC [id number] 05:17:00 Test Item Value Reference Range Interpretation Comments SODIUM (test code = NA) 138 mmol/L 134-147 N POTASSIUM (test code = 3.8 mmol/L 3.4-5.0 N K) CHLORIDE (test code = 108 mmol/L 100-108 N CL) CARBON DIOXIDE (test 24 mmol/L 21-32 N code = CO2) ANION GAP (test code = 6.0 GAP calc 4.0-15.0 N GAP) GLUCOSE (test code = 99 MG/DL 70-110 N GLU) BLOOD UREA NITROGEN 10 MG/DL 7-18 N (test code = BUN) GLOMERULAR FILTRATION >=60 max estimate >60 RATE (test code = GFR) estGFR CREATININE (test code = 0.7 MG/DL 0.6-1.0 N CREAT) CALCIUM (test code = CA) 9.1 MG/DL 8.5-10.1 N CBC W/AUTO [id number] 04:41:00 Test Item Value Reference Range Interpretation Comments WHITE BLOOD CELL 12.0 K/mm3 3.5-11.0 H (test code = WBC) RED BLOOD CELL (test 3.82 M/mm3 4.70-6.10 L code = RBC) HEMOGLOBIN (test code 12.3 G/DL 10.4-14.9 N = HGB) HEMATOCRIT (test code 36.8 % 31.5-44.1 N = HCT) MEAN CELL VOLUME 96.3 Fl 84.5-98.6 N (test code = MCV) MEAN CELL HGB (test 32.2 pg 27.0-34.2 N code = MCH) MEAN CELL HGB 33.4 G/DL 31.5-34.0 N CONCETRATION (test code = MCHC) RED CELL DISTRIBUTION 14.6 SD 11.5-14.5 H WIDTH (test code = RDW) PLATELET COUNT (test 154 K/mm3 150-450 N code = PLT) MEAN PLATELET VOLUME 12.10 fL 7.0-10.5 H (test code = MPV) NEUTROPHIL % (test 72.3 % 40-76 N code = NT%) IMMATURE GRANULOCYTE 0.3 % 0.0-5.0 N % (test code = IG%) LYMPHOCYTE % (test 12.4 % 20.5-51.1 L code = LY%) MONOCYTE % (test code 14.1 % 1.7-9.3 H = MO%) EOSINOPHIL % (test 0.6 % 0.0-6.0 N code = EO%) BASOPHIL % (test code 0.3 % 0.0-2.0 N = BA%) NUCLEATED RBC % (test 0.0 /100WBC% 0.0-1.0 N code = NRBC%) NEUTROPHIL # (test 8.7 K/mm3 1.8-7.6 H code = NT#) IMMATURE GRANULOCYTE 0.04 x10 3/uL 0.00-0.03 H # (test code = IG#) LYMPHOCYTE # (test 1.5 K/mm3 0.6-3.2 N code = LY#) MONOCYTE # (test code 1.7 K/mm3 0.3-1.1 H = MO#) EOSINOPHIL # (test 0.1 K/mm3 0.0-0.4 N code = EO#) BASOPHIL # (test code 0.0 K/mm3 0.0-0.1 N = BA#) NUCLEATED RBC # (test 0.0 K/mm3 0.0-0.1 N code = NRBC#) MANUAL DIFF REQUIRED NO DIFF/SCN CRITERIA SLIDE R EDINSON (test code = MDIFF) CONSISTA NT WITH AUTO DIFFERENTI AL. THROMBOPLASTIN TIME [id number] 02:21:00 Test Item Value Reference Range Interpretation Comments THROMBOPLASTIN TIME PARTIAL 34.9 SECONDS 26-35 N (test code = PTT) [id number] 02:21:00 Test Item Value Reference Range Interpretation Comments FIBRINOGEN (test code = FIB) 634 mg/dL 185-453 H CBC W/AUTO [id number] 23:38:00 Test Item Value Reference Interpretation Comments Range WHITE BLOOD CELL TEST NOT 3.5-11.0 H DUPLICATEPr eviously (test code = WBC) PERFORMED reported r esult: 12.0 K/mm3 K/do7Gochqf by: Gaye on 08/01/21:2329~~ ~~~~~~~~~ ~~~~~~~~~~~~~~~ ~~~~~~~~~ ~~~~~ Thi s is a CORRECTED REPOR T RED BLOOD CELL TEST NOT 4.70-6.10 L Previously re ported (test code = RBC) PERFORMED result: 4. 31 M/lu1Tdjfxj M/mm3 by: Esteban7 o n 08/01/21:2330~~ ~~~~~~~~~ ~~~~~~~~~~~~~~~ ~~~~~~~~~ ~~~~~ Thi s is a CORRECTED REPOR T HEMOGLOBIN (test TEST NOT 10.4-14.9 N Previously reported code = HGB) PERFORMED G/DL result: 13.7 G/DLEdited by: Esteban7 o n 08/01/21:233~~ ~~~~~~~~~ ~~~~~~~~~~~~~~~ ~~~~~~~~~ ~~~~~ Thi s is a CORRECTED REPOR T HEMATOCRIT (test TEST NOT 31.5-44.1 N Previously reported code = HCT) PERFORMED % result: 41.0 %E dited by: Gaye on 08/01/21:2331~~ ~~~~~~~~~ ~~~~~~~~~~~~~~~ ~~~~~~~~~ ~~~~~ Thi s is a CORRECTED REPOR T MEAN CELL VOLUME TEST NOT 84.5-98.6 N Previously reported (test code = MCV) PERFORMED Fl result: 95 .1 FlEdited by: Gaye o n 08/01/21:2331~~ ~~~~~~~~~ ~~~~~~~~~~~~~~~ ~~~~~~~~~ ~~~~~ Thi s is a CORRECTED REPOR T MEAN CELL HGB TEST NOT 27.0-34.2 N Previously rep orted (test code = MCH) PERFORMED pg result: 31 .8 pgEdited by: AnaSI7 o n 08/01/21:2331~~ ~~~~~~~~~ ~~~~~~~~~~~~~~~ ~~~~~~~~~ ~~~~~ Thi s is a CORRECTED REPOR T MEAN CELL HGB TEST NOT 31.5-34.0 N Previously rep orted CONCETRATION (test PERFORMED G/DL result: 33.4 G/DLEdited code = MCHC) by: AnaSI7 o n 08/01/21:2334~~ ~~~~~~~~~ ~~~~~~~~~~~~~~~ ~~~~~~~~~ ~~~~~ Thi s is a CORRECTED REPOR T RED CELL TEST NOT 11.5-14.5 N Previously repo rted DISTRIBUTION WIDTH PERFORMED SD result: 1 4.3 SDEdited (test code = RDW) by: Ana CUEVAS7 on 08/01/21:2334~~ ~~~~~~~~~ ~~~~~~~~~~~~~~~ ~~~~~~~~~ ~~~~~ Thi s is a CORRECTED REPOR T PLATELET COUNT TEST NOT 150-450 N Previously re ported (test code = PLT) PERFORMED result: 17 5 K/mi2Uwyxdw K/mm3 by: AnaSI7 o n 08/01/21:2335~~ ~~~~~~~~~ ~~~~~~~~~~~~~~~ ~~~~~~~~~ ~~~~~ Thi s is a CORRECTED REPOR T MEAN PLATELET TEST NOT 7.0-10.5 H Previously rep orted VOLUME (test code PERFORMED fL result: 11 .90 fLEdited = MPV) by: Esteban7 o n 08/01/21:2335~~ ~~~~~~~~~ ~~~~~~~~~~~~~~~ ~~~~~~~~~ ~~~~~ Thi s is a CORRECTED REPOR T NEUTROPHIL % (test TEST NOT 40-76 H Previousl y reported code = NT%) PERFORMED % result: 80.5 %E dited by: Esteban7 on 08/01/21:2335~~ ~~~~~~~~~ ~~~~~~~~~~~~~~~ ~~~~~~~~~ ~~~~~ Thi s is a CORRECTED REPOR T IMMATURE TEST NOT 0.0-5.0 H Previously repo rted GRANULOCYTE % PERFORMED % result: 7.3 %E dited by: (test code = IG%) Esteban7 on 08/01/21:2335~~ ~~~~~~~~~ ~~~~~~~~~~~~~~~ ~~~~~~~~~ ~~~~~ Thi s is a CORRECTED REPOR T LYMPHOCYTE % (test TEST NOT 20.5-51.1 L Previousl y reported code = LY%) PERFORMED % result: 11.3 %E dited by: AnaSI7 on 08/01/21:2335~~ ~~~~~~~~~ ~~~~~~~~~~~~~~~ ~~~~~~~~~ ~~~~~ Thi s is a CORRECTED REPOR T MONOCYTE % (test TEST NOT 1.7-9.3 L Previously reported code = MO%) PERFORMED % result: 0.3 %Ed ited by: Gaye on 08/01/21:2335~~ ~~~~~~~~~ ~~~~~~~~~~~~~~~ ~~~~~~~~~ ~~~~~ Thi s is a CORRECTED REPOR T EOSINOPHIL % (test TEST NOT 0.0-6.0 N Previousl y reported code = EO%) PERFORMED % result: 0.2 %Ed ited by: Gaye on 08/01/21:2335~~ ~~~~~~~~~ ~~~~~~~~~~~~~~~ ~~~~~~~~~ ~~~~~ Thi s is a CORRECTED REPOR T BASOPHIL % (test TEST NOT 0.0-2.0 N Previously reported code = BA%) PERFORMED % result: 0.4 %Ed ited by: AnaSI7 on 08/01/21:2336~~ ~~~~~~~~~ ~~~~~~~~~~~~~~~ ~~~~~~~~~ ~~~~~ Thi s is a CORRECTED REPOR T NUCLEATED RBC % TEST NOT 0.0-1.0 N Previously r eported (test code = PERFORMED result: 0.0 NRBC%) /100WBC% /100WBC%Edited by: Gaye on 08/01/21:2336~~ ~~~~~~~~~ ~~~~~~~~~~~~~~~ ~~~~~~~~~ ~~~~~ Thi s is a CORRECTED REPOR T NEUTROPHIL # (test TEST NOT 1.8-7.6 H Previousl y reported code = NT#) PERFORMED result: 9.7 K/m n7Xmnakc K/mm3 by: Esteban7 o n 08/01/21:2336~~ ~~~~~~~~~ ~~~~~~~~~~~~~~~ ~~~~~~~~~ ~~~~~ Thi s is a CORRECTED REPOR T IMMATURE TEST NOT 0.00-0.03 GRANULOCYTE # PERFORMED x10 (test code = IG#) 3/uL LYMPHOCYTE # (test TEST NOT 0.6-3.2 N Previousl y reported code = LY#) PERFORMED result: 0.9 K/m o0Cwapve K/mm3 by: Esteban7 o n 08/01/21:2336~~ ~~~~~~~~~ ~~~~~~~~~~~~~~~ ~~~~~~~~~ ~~~~~ Thi s is a CORRECTED REPOR T MONOCYTE # (test TEST NOT 0.3-1.1 H Previously reported code = MO#) PERFORMED result: 1.4 K/m n0Hnvswe K/mm3 by: Esteban7 o n 08/01/21:2336~~ ~~~~~~~~~ ~~~~~~~~~~~~~~~ ~~~~~~~~~ ~~~~~ Thi s is a CORRECTED REPOR T EOSINOPHIL # (test TEST NOT 0.0-0.4 N Previousl y reported code = EO#) PERFORMED result: 0.4 K/m n0Nnloed K/mm3 by: Esteban7 o n 08/01/21:2336~~ ~~~~~~~~~ ~~~~~~~~~~~~~~~ ~~~~~~~~~ ~~~~~ Thi s is a CORRECTED REPOR T BASOPHIL # (test TEST NOT 0.0-0.1 N Previously reported code = BA#) PERFORMED result: 0.0 K/m h1Vzucca K/mm3 by: AnaSI7 o n 08/01/21:2336~~ ~~~~~~~~~ ~~~~~~~~~~~~~~~ ~~~~~~~~~ ~~~~~ Thi s is a CORRECTED REPOR T NUCLEATED RBC # TEST NOT 0.0-0.1 N Previously r eported (test code = PERFORMED result: 0.0 K/m p3Eajrsa NRBC#) K/mm3 by: AnaSI7 o n 08/01/21:2336~~ ~~~~~~~~~ ~~~~~~~~~~~~~~~ ~~~~~~~~~ ~~~~~ Thi s is a CORRECTED REPOR T MANUAL DIFF TEST NOT CRITERIA SLIDE REVIEW CO NSISTANT REQUIRED (test PERFORMED WITH AUTO code = MDIFF) DIFF/SCN DIFFERENTIAL.P reviously reported result : NO DIFF/SCNEdited by: AnaSI7 on 08/01/21:2336~~ ~~~~~~~~~ ~~~~~~~~~~~~~~~ ~~~~~~~~~ ~~~~~ Thi s is a CORRECTED REPOR T PATHOLOGIST'S TEST NOT COMMENTS FINDINGS (test PERFORMED code = PATH) EXTERNAL Comment: q6hr labs while lysis ongoingTHROMBOPLASTIN TIME [id number] 18:28:00 Test Item Value Reference Range Interpretation Comments THROMBOPLASTIN TIME PARTIAL 37.0 SECONDS 26-35 H (test code = PTT) [id number] 18:28:00 Test Item Value Reference Range Interpretation Comments FIBRINOGEN (test code = FIB) 653 mg/dL 185-453 H CBC W/AUTO [id number] 18:14:00 Test Item Value Reference Range Interpretation Comments WHITE BLOOD CELL (test code = 11.4 K/mm3 3.5-11.0 H WBC) RED BLOOD CELL (test code = 4.29 M/mm3 4.70-6.10 L RBC) HEMOGLOBIN (test code = HGB) 13.4 G/DL 10.4-14.9 N HEMATOCRIT (test code = HCT) 40.7 % 31.5-44.1 N MEAN CELL VOLUME (test code = 94.9 Fl 84.5-98.6 N MCV) MEAN CELL HGB (test code = MCH) 31.2 pg 27.0-34.2 N MEAN CELL HGB CONCETRATION 32.9 G/DL 31.5-34.0 N (test code = MCHC) RED CELL DISTRIBUTION WIDTH 14.6 SD 11.5-14.5 H (test code = RDW) PLATELET COUNT (test code = 156 K/mm3 150-450 N PLT) MEAN PLATELET VOLUME (test code 12.10 fL 7.0-10.5 H = MPV) NEUTROPHIL % (test code = NT%) 74.7 % 40-76 N IMMATURE GRANULOCYTE % (test 0.4 % 0.0-5.0 N code = IG%) LYMPHOCYTE % (test code = LY%) 11.8 % 20.5-51.1 L MONOCYTE % (test code = MO%) 12.4 % 1.7-9.3 H EOSINOPHIL % (test code = EO%) 0.5 % 0.0-6.0 N BASOPHIL % (test code = BA%) 0.2 % 0.0-2.0 N NUCLEATED RBC % (test code = 0.0 /100WBC% 0.0-1.0 N NRBC%) NEUTROPHIL # (test code = NT#) 8.5 K/mm3 1.8-7.6 H IMMATURE GRANULOCYTE # (test 0.05 x10 3/uL 0.00-0.03 H code = IG#) LYMPHOCYTE # (test code = LY#) 1.3 K/mm3 0.6-3.2 N MONOCYTE # (test code = MO#) 1.4 K/mm3 0.3-1.1 H EOSINOPHIL # (test code = EO#) 0.1 K/mm3 0.0-0.4 N BASOPHIL # (test code = BA#) 0.0 K/mm3 0.0-0.1 N NUCLEATED RBC # (test code = 0.0 K/mm3 0.0-0.1 N NRBC#) MANUAL DIFF REQUIRED (test code NO DIFF/SCN CRITERIA = MDIFF) Comment: q6hr labs while lysis ongoingCBC W/AUTO [id number] 10:32:00 Test Item Value Reference Range Interpretation Comments WHITE BLOOD CELL (test code = 12.0 K/mm3 3.5-11.0 H WBC) RED BLOOD CELL (test code = 4.31 M/mm3 4.70-6.10 L RBC) HEMOGLOBIN (test code = HGB) 13.7 G/DL 10.4-14.9 N HEMATOCRIT (test code = HCT) 41.0 % 31.5-44.1 N MEAN CELL VOLUME (test code = 95.1 Fl 84.5-98.6 N MCV) MEAN CELL HGB (test code = MCH) 31.8 pg 27.0-34.2 N MEAN CELL HGB CONCETRATION 33.4 G/DL 31.5-34.0 N (test code = MCHC) RED CELL DISTRIBUTION WIDTH 14.3 SD 11.5-14.5 N (test code = RDW) PLATELET COUNT (test code = 175 K/mm3 150-450 N PLT) MEAN PLATELET VOLUME (test code 11.90 fL 7.0-10.5 H = MPV) NEUTROPHIL % (test code = NT%) 80.5 % 40-76 H IMMATURE GRANULOCYTE % (test 0.4 % 0.0-5.0 N code = IG%) LYMPHOCYTE % (test code = LY%) 7.3 % 20.5-51.1 L MONOCYTE % (test code = MO%) 11.3 % 1.7-9.3 H EOSINOPHIL % (test code = EO%) 0.3 % 0.0-6.0 N BASOPHIL % (test code = BA%) 0.2 % 0.0-2.0 N NUCLEATED RBC % (test code = 0.0 /100WBC% 0.0-1.0 N NRBC%) NEUTROPHIL # (test code = NT#) 9.7 K/mm3 1.8-7.6 H IMMATURE GRANULOCYTE # (test 0.05 x10 3/uL 0.00-0.03 H code = IG#) LYMPHOCYTE # (test code = LY#) 0.9 K/mm3 0.6-3.2 N MONOCYTE # (test code = MO#) 1.4 K/mm3 0.3-1.1 H EOSINOPHIL # (test code = EO#) 0.0 K/mm3 0.0-0.4 N BASOPHIL # (test code = BA#) 0.0 K/mm3 0.0-0.1 N NUCLEATED RBC # (test code = 0.0 K/mm3 0.0-0.1 N NRBC#) MANUAL DIFF REQUIRED (test code NO DIFF/SCN CRITERIA = MDIFF) Comment: q6hr labs while lysis ongoingCBC W/AUTO [id number] 06:59:00 Test Item Value Reference Range Interpretation Comments WHITE BLOOD CELL 12.9 K/mm3 3.5-11.0 H (test code = WBC) RED BLOOD CELL (test 4.34 M/mm3 4.70-6.10 L code = RBC) HEMOGLOBIN (test code 13.6 G/DL 10.4-14.9 N = HGB) HEMATOCRIT (test code 41.0 % 31.5-44.1 N = HCT) MEAN CELL VOLUME 94.5 Fl 84.5-98.6 N (test code = MCV) MEAN CELL HGB (test 31.3 pg 27.0-34.2 N code = MCH) MEAN CELL HGB 33.2 G/DL 31.5-34.0 N CONCETRATION (test code = MCHC) RED CELL DISTRIBUTION 14.4 SD 11.5-14.5 N WIDTH (test code = RDW) PLATELET COUNT (test 167 K/mm3 150-450 N code = PLT) MEAN PLATELET VOLUME 12.10 fL 7.0-10.5 H (test code = MPV) NEUTROPHIL % (test 77.8 % 40-76 H code = NT%) IMMATURE GRANULOCYTE 0.4 % 0.0-5.0 N % (test code = IG%) LYMPHOCYTE % (test 9.5 % 20.5-51.1 L code = LY%) MONOCYTE % (test code 11.9 % 1.7-9.3 H = MO%) EOSINOPHIL % (test 0.2 % 0.0-6.0 N code = EO%) BASOPHIL % (test code 0.2 % 0.0-2.0 N = BA%) NUCLEATED RBC % (test 0.0 /100WBC% 0.0-1.0 N code = NRBC%) NEUTROPHIL # (test 10.0 K/mm3 1.8-7.6 H code = NT#) IMMATURE GRANULOCYTE 0.05 x10 3/uL 0.00-0.03 H # (test code = IG#) LYMPHOCYTE # (test 1.2 K/mm3 0.6-3.2 N code = LY#) MONOCYTE # (test code 1.5 K/mm3 0.3-1.1 H = MO#) EOSINOPHIL # (test 0.0 K/mm3 0.0-0.4 N code = EO#) BASOPHIL # (test code 0.0 K/mm3 0.0-0.1 N = BA#) NUCLEATED RBC # (test 0.0 K/mm3 0.0-0.1 N code = NRBC#) MANUAL DIFF REQUIRED NO DIFF/SCN CRITERIA SLIDE R LISETHW (test code = MDIFF) CONSISTA NT WITH AUTO DIFFERENTI AL. THROMBOPLASTIN TIME [id number] 05:04:00 Test Item Value Reference Range Interpretation Comments THROMBOPLASTIN TIME PARTIAL 36.2 SECONDS 26-35 H (test code = PTT) [id number] 05:04:00 Test Item Value Reference Range Interpretation Comments FIBRINOGEN (test code = FIB) 598 mg/dL 185-453 H BASIC METABOLIC [id number] 04:57:00 Test Item Value Reference Range Interpretation Comments SODIUM (test code = NA) 137 mmol/L 134-147 N POTASSIUM (test code = 4.0 mmol/L 3.4-5.0 N K) CHLORIDE (test code = 105 mmol/L 100-108 N CL) CARBON DIOXIDE (test 27 mmol/L 21-32 N code = CO2) ANION GAP (test code = 5.0 GAP calc 4.0-15.0 N GAP) GLUCOSE (test code = 112 MG/DL 70-110 H GLU) BLOOD UREA NITROGEN 12 MG/DL 7-18 N (test code = BUN) GLOMERULAR FILTRATION >=60 max estimate >60 RATE (test code = GFR) estGFR CREATININE (test code = 0.8 MG/DL 0.6-1.0 N CREAT) CALCIUM (test code = CA) 8.7 MG/DL 8.5-10.1 N THROMBOPLASTIN TIME [id number] 23:32:00 Test Item Value Reference Range Interpretation Comments THROMBOPLASTIN TIME PARTIAL 39.3 SECONDS 26-35 H (test code = PTT) [id number] 23:32:00 Test Item Value Reference Range Interpretation Comments FIBRINOGEN (test code = FIB) 551 mg/dL 185-453 H THROMBOPLASTIN TIME [id number] 17:21:00 Test Item Value Reference Range Interpretation Comments THROMBOPLASTIN TIME PARTIAL 45.2 SECONDS 26-35 H (test code = PTT) [id number] 17:21:00 Test Item Value Reference Range Interpretation Comments FIBRINOGEN (test code = FIB) 615 mg/dL 185-453 H CBC W/AUTO [id number] 17:00:00 Test Item Value Reference Range Interpretation Comments WHITE BLOOD CELL (test code = 12.3 K/mm3 3.5-11.0 H WBC) RED BLOOD CELL (test code = 4.67 M/mm3 4.70-6.10 L RBC) HEMOGLOBIN (test code = HGB) 14.7 G/DL 10.4-14.9 N HEMATOCRIT (test code = HCT) 44.5 % 31.5-44.1 H MEAN CELL VOLUME (test code = 95.3 Fl 84.5-98.6 N MCV) MEAN CELL HGB (test code = MCH) 31.5 pg 27.0-34.2 N MEAN CELL HGB CONCETRATION 33.0 G/DL 31.5-34.0 N (test code = MCHC) RED CELL DISTRIBUTION WIDTH 14.3 SD 11.5-14.5 N (test code = RDW) PLATELET COUNT (test code = 165 K/mm3 150-450 N PLT) MEAN PLATELET VOLUME (test code 11.70 fL 7.0-10.5 H = MPV) NEUTROPHIL % (test code = NT%) 82.3 % 40-76 H IMMATURE GRANULOCYTE % (test 0.4 % 0.0-5.0 N code = IG%) LYMPHOCYTE % (test code = LY%) 6.5 % 20.5-51.1 L MONOCYTE % (test code = MO%) 10.6 % 1.7-9.3 H EOSINOPHIL % (test code = EO%) 0.1 % 0.0-6.0 N BASOPHIL % (test code = BA%) 0.1 % 0.0-2.0 N NUCLEATED RBC % (test code = 0.0 /100WBC% 0.0-1.0 N NRBC%) NEUTROPHIL # (test code = NT#) 10.1 K/mm3 1.8-7.6 H IMMATURE GRANULOCYTE # (test 0.05 x10 3/uL 0.00-0.03 H code = IG#) LYMPHOCYTE # (test code = LY#) 0.8 K/mm3 0.6-3.2 N MONOCYTE # (test code = MO#) 1.3 K/mm3 0.3-1.1 H EOSINOPHIL # (test code = EO#) 0.0 K/mm3 0.0-0.4 N BASOPHIL # (test code = BA#) 0.0 K/mm3 0.0-0.1 N NUCLEATED RBC # (test code = 0.0 K/mm3 0.0-0.1 N NRBC#) MANUAL DIFF REQUIRED (test code NO DIFF/SCN CRITERIA = MDIFF) Comment: q6hr labs while lysis ongoingTHROMBOPLASTIN TIME [id number] 09:24:00 Test Item Value Reference Range Interpretation Comments THROMBOPLASTIN TIME PARTIAL 63.7 SECONDS 26-35 H (test code = PTT) PROTHROMBIN [id number] 05:40:00 Test Item Value Reference Range Interpretation Comments PT PATIENT (test 12.0 SECONDS 9.3-12.9 N code = PTP) INTERNATIONAL NORMAL 1.05 INR Unit 0.8-1.2 N TARGET RATIO (test code = INR BY IN DICATION INR) Indication INR1. Prophyl axis of venous thrombos is 2.0 - 3. 0 (orthopedic oneyda donna), Prophylaxis of venous thrombos is (other than hig h-risk surgery), Britney tment of Deep Vein Thrombosis/Pulm onary Embolism, Preve ntion of systemic emb olism - Tissue heart va lves, Acute Myocardia l Infarction (to prevent systemic embo lism), Valvular heart disease, Acut e Myocardial Infa rction (to prevent s ystemic embolism), Valv ular heart disease, Atrial Fibrilla tion, Bileaflet mecha nical valve in aortic position.2. Mec hanical prosthetic valv es (high risk), 2.5 - 3.5 Presence of Lupus Anticoagu lant or Antiphospholi pid Antibodies, Pre vention of systemic e mbolism - Acute Myocard ial Infarction (t o prevent recurre nt infarct). THROMBOPLASTIN TIME [id number] 05:40:00 Test Item Value Reference Range Interpretation Comments THROMBOPLASTIN TIME PARTIAL 57.1 SECONDS 26-35 H (test code = PTT) THYROID STIMULATING [id number] 04:54:00 Test Item Value Reference Range Interpretation Comments THYROID STIMULATING HORMONE 3.030 mcIU/ML 0.340-4.820 N (test code = TSH) COMPREHENSIVE METABOLIC [id number] 04:40:00 Test Item Value Reference Range Interpretation Comments SODIUM (test code = NA) 138 mmol/L 134-147 N POTASSIUM (test code = 4.5 mmol/L 3.4-5.0 N K) CHLORIDE (test code = 103 mmol/L 100-108 N CL) CARBON DIOXIDE (test 32 mmol/L 21-32 N code = CO2) ANION GAP (test code = 3.0 GAP calc 4.0-15.0 L GAP) GLUCOSE (test code = 102 MG/DL 70-110 N GLU) BLOOD UREA NITROGEN 18 MG/DL 7-18 N (test code = BUN) GLOMERULAR FILTRATION >=60 max estimate >60 RATE (test code = GFR) estGFR CREATININE (test code = 0.9 MG/DL 0.6-1.0 N CREAT) TOTAL PROTEIN (test code 7.1 G/DL 6.4-8.2 N = PROT) ALBUMIN (test code = 3.2 G/DL 3.4-5.0 L ALB) GLOBULIN (test code = 3.9 GM/dL GLOB) ALBUMIN/GLOBULIN RATIO 0.8 RATIO 1.2-2.2 L (test code = A/G) CALCIUM (test code = CA) 9.3 MG/DL 8.5-10.1 N BILIRUBIN TOTAL (test 0.90 MG/DL 0.2-1.2 N code = BILT) SGOT/AST (test code = 164 Unit/L 15-37 H AST) SGPT/ALT (test code = 188 Unit/L 12-78 H ALT) ALKALINE PHOSPHATASE 74 Unit/L 45-117 N TOTAL (test code = ALKP) COVID 19 INHOUSE [id number] 04:36:00 Test Item Value Reference Range Interpretation Comments COVID 19 INHOUSE AG NEGATIVE Negative Per manu facturer, (test code = negative result s should [id number]) be treated aspr esumptive and, if inconsi stent with clinical signs andsymptoms or necessary for patient man agement, should betested with an alternative mol ecular assay. Negative resultsdo not preclude SA RS-CoV-2 infection and s hould not be usedas the s ole basis for patient man agement decisions. Neg ative results should be considered in t he context of apatient's r ecent exposures, hist ory, presence of cli nicalsigns and symptoms co nsistent with COVID-19. Comment: NEW ADMITCBC W/AUTO [id number] 04:26:00 Test Item Value Reference Range Interpretation Comments WHITE BLOOD CELL (test code = 9.3 K/mm3 3.5-11.0 N WBC) RED BLOOD CELL (test code = 4.71 M/mm3 4.70-6.10 N RBC) HEMOGLOBIN (test code = HGB) 14.7 G/DL 10.4-14.9 N HEMATOCRIT (test code = HCT) 45.3 % 31.5-44.1 H MEAN CELL VOLUME (test code = 96.2 Fl 84.5-98.6 N MCV) MEAN CELL HGB (test code = MCH) 31.2 pg 27.0-34.2 N MEAN CELL HGB CONCETRATION 32.5 G/DL 31.5-34.0 N (test code = MCHC) RED CELL DISTRIBUTION WIDTH 14.2 SD 11.5-14.5 N (test code = RDW) PLATELET COUNT (test code = 188 K/mm3 150-450 N PLT) MEAN PLATELET VOLUME (test code 11.80 fL 7.0-10.5 H = MPV) NEUTROPHIL % (test code = NT%) 72.1 % 40-76 N IMMATURE GRANULOCYTE % (test 0.3 % 0.0-5.0 N code = IG%) LYMPHOCYTE % (test code = LY%) 14.1 % 20.5-51.1 L MONOCYTE % (test code = MO%) 11.7 % 1.7-9.3 H EOSINOPHIL % (test code = EO%) 1.5 % 0.0-6.0 N BASOPHIL % (test code = BA%) 0.3 % 0.0-2.0 N NUCLEATED RBC % (test code = 0.0 /100WBC% 0.0-1.0 N NRBC%) NEUTROPHIL # (test code = NT#) 6.7 K/mm3 1.8-7.6 N IMMATURE GRANULOCYTE # (test 0.03 x10 3/uL 0.00-0.03 N code = IG#) LYMPHOCYTE # (test code = LY#) 1.3 K/mm3 0.6-3.2 N MONOCYTE # (test code = MO#) 1.1 K/mm3 0.3-1.1 N EOSINOPHIL # (test code = EO#) 0.1 K/mm3 0.0-0.4 N BASOPHIL # (test code = BA#) 0.0 K/mm3 0.0-0.1 N NUCLEATED RBC # (test code = 0.0 K/mm3 0.0-0.1 N NRBC#) MANUAL DIFF REQUIRED (test code NO DIFF/SCN CRITERIA = MDIFF) - XR CHEST 1 [id number] 03:48:00 [facility] 1955 Sex: F Name: EMEKA JUSTIN [facility] : 1955 Age/S: 65 / F [id number] Unit #: [id number] Loc: [place] [address] Phys: Yesy Logan MD Acct: [id number] Dis Date: Status: ADM IN PHONE #: [phone] Exam Date: 07/31/2021 0300 FAX #: Reason: pneumonia EXAMS: CPT: [id number] XR CHEST 1 V [id number] Fluoro Time: DAP (Gy m2): Air Kerma (mGy): EXAM: CHEST ONE VIEW INDICATION: PNEUMONIA LOCATION: B2 COMPARISON: None available TECHNIQUE: AP view of the chest FINDINGS: The heart size is enlarged. There are diffuse parenchymal opacities throughout both lungs. No pneumothorax or pleural effusion is identified. The osseous structures are normal. IMPRESSION: Cardiomegaly with diffuse parenchymal opacities throughout both lungs. at 0348 Reported and signed by: Doris Gillette M.D. CC: Yesy Logan MD; Abel Martinez MD PAGE 1 Signed Report Name: EMEKA JUSTIN [facility] : 1955 Age/S:65 / F [address] Unit #: [id number] Loc: [place] [address] Phys: Yesy Logan MD Acct: [id number] Dis Date: Status: ADM IN PHONE #: [phone] Exam Date: 07/31/2021 0300 FAX #: Reason: pneumonia EXAMS: CPT: [id number] XR CHEST 1 V [id number] Fluoro Time: DAP (Gy m2): Air Kerma (mGy): <Continued> Technologist: Radhika Montenegro, RT(R)(CT) Trnscb Date/Time: 07/31/2021 (0348) 16 Orig Print D/T: S: 07/31/2021 (0351) PAGE 2 Signed Report PROTHROMBIN [id number] 02:40:00 Test Item Value Reference Range Interpretation Comments PT PATIENT (test 11.5 SECONDS 9.3-12.9 N code = PTP) INTERNATIONAL NORMAL 1.01 INR Unit 0.8-1.2 N TARGET RATIO (test code = INR BY IN DICATION INR) Indication INR1. Prophyl axis of venous thrombos is 2.0 - 3. 0 (orthopedic oneyda donna), Prophylaxis of venous thrombos is (other than hig h-risk surgery), Britney tment of Deep Vein Thrombosis/Pulm onary Embolism, Preve ntion of systemic emb olism - Tissue heart va lves, Acute Myocardia l Infarction (to prevent systemic embo lism), Valvular heart disease, Acut e Myocardial Infa rction (to prevent s ystemic embolism), Valv ular heart disease, Atrial Fibrilla tion, Bileaflet mecha nical valve in aortic position.2. Mec hanical prosthetic valv es (high risk), 2.5 - 3.5 Presence of Lupus Anticoagu lant or Antiphospholi pid Antibodies, Pre vention of systemic e mbolism - Acute Myocard ial Infarction (t o prevent recurre nt infarct). THROMBOPLASTIN TIME [id number] 02:40:00 Test Item Value Reference Range Interpretation Comments THROMBOPLASTIN TIME PARTIAL 129.0 SECONDS 26-35 HH (test code = PTT) PRO TIME AND [id number] 20:10:00 Test Item Value Reference Range Interpretation Comments PT (test code = 12.9 s 9.8-13.6 TT) INR (test code = 1.1 INR) INRH (test code = SUGGESTED INRH) THERAPEUTIC RANGE FOR INR: 2.5 - 3.5 For Patients with Prosthetic Valves or Patients with recurrent Thromboembolic Events 2.0 - 3.0 For Most Other Applications PTT (test code = 237.4 s 20.2-38.0 HH PTT) PTTH (test code = To monitor the PTTH) effectiveness of heparin, we offer the Anti-Xa (Heparin Assay). It can be used for either unfractionated or LMW Heparin. Order Code is ANTI-XA U/S ART FLW DOPPLER KARLA LOW [id number] 16:00:20 [facility] : 1955 Sex: FEXAMINATION:U/S ART FLW DOPPLER KARLA LOW EXTCLINICAL INDICATION:Female, 65 years old with Weak arteri al pulseTECHNIQUE: Grayscale, color Doppler, and spectral waveform analysis of the bilateral lower extremity is performed.COMPARISON: NoneFINDINGS:Doppler: Right lower extremity:Common femoral artery velocity distally is diminished measuring 34.1 cm/s. Proximal [employer] INSPECTOR demonstrates a velocity 380 cm/s. There is a monophasic waveform. The remainder of the right lower extremity with exception of the profunda is occluded. There is a right SFA stent.Left lower extremity:Biphasic and monophasic waveforms arepresent throughout the lower extremity. The dorsalis pedis artery is not visualized.Grayscale: Moderate atherosclerotic plaque is present. Additional findings: No additional sonographic abnormality.IMPRESSION:1. There is occlusive thrombus throughout the right lower extremity diffusely. Elevated proximal BOILER HOUSE INSPECTOR velocity is noted with diminished distal [employer]ILER HOUSE INSPECTOR velocity.Electronically signed by: Delfino Tariq MD 07/30/2021 4:00 PM CDT (INCLUDES AUTOMATED DIFFERENTIAL)2021-07-30 05:22:00 Test Item Value Reference Range Interpretation Comments WBC (test code = WBC) 6.2 10\S\3/uL 4.5-11.0 RBC (test code = RBC) 4.21 10\S\6/uL 4.20-5.60 HGB (test code = HBG) 13.4 g/dL 12.0-15.5 HCT (test code = HCT) 40.7 % 35.0-44.0 MCV (test code = MCV) 96.7 fL 81.0-99.0 MCH (test code = MCH) 31.8 pg 27.0-31.0 H MCHC (test code = MCHC) 32.9 g/dL 32.0-36.0 RDW (test code = RDW) 14.4 % 11.5-14.5 PLT (test code = PLT) 167 10\S\3/uL 130-400 MPV (test code = MPV) 11.8 fL 9.4-12.4 NEUTROP # (test code = NE#) 3.6 10\S\3/uL 1.6-8.0 LYMPH # (test code = LY#) 1.8 10\S\3/uL 1.1-3.5 MONOCYTE # (test code = MO#) 0.8 10\S\3/uL 0.0-1.1 EOSINOPH # (test code = EO#) 0.1 10\S\3/uL 0.0-0.7 BASOPHIL # (test code = BA#) 0.0 10\S\3/uL 0.0-0.3 IG # (test code = IG#) 0.02 10\S\3/uL 0.00-0.06 NRBC # (test code = NRBC#) 0.00 10\S\3/uL 0.00-0.01 NEUTROPH % (test code = NE%) 56.9 % 35.0-73.0 LYMPH % (test code = LY%) 28.2 % 20.0-55.0 MONO % (test code = MO%) 12.7 % 2.5-10.0 H EOSINOPH % (test code = EO%) 1.4 % 0.0-5.0 BASOPHIL % (test code = BA%) 0.5 % 0.0-2.0 IG % (test code = IG%) 0.3 % 0.0-0.8 NRBC% (test code = NRBC%) 0.0 % 0.0-0.2 MANDIFF (test code = MDIFF) NO BASIC METABOLIC [id number] 05:21:00 Test Item Value Reference Range Interpretation Comments GLUCOSE (test code 93 mg/dL 75-100 = 06D) SODIUM (test code 138 mmol/L 136-145 = 01A) POTASSIUM (test 3.6 mmol/L 3.6-5.1 code = 01B) CHLORIDE (test 103 mmol/L 98-107 code = 04A) CO2 (test code = 30 mmol/L 20-31 02A) ANION GAP (test 8.6 mmol/L code = ANG) BUN (test code = 15 mg/dL 9-23 05D) CREATININE (test 1.0 mg/dL 0.6-1.0 code = 03E) GFR (test code = 59 See_Comment L [Automated GFR) mL/min/1.73m\S\2 message] Th e system which generated this result transmit edward reference range : >=90. The reference range was not used to interpret this result as normal/abnormal . GFR 69 See_Comment L [Automated PANAMANIAN (test mL/min/1.73m\S\2 message] The code = GFRAA) system which generated this result transmit edward reference range : >=90. The reference range was not used to interpret this result as normal/abnormal . EGFR (test code = eGFR BY EGFR) CKD-EPI CALCULATION IS NOT RECOMMENDED FOR PATIENTS UNDER 18 YEARS OF AGE. BUN/CREA (test 03-21 code = BCR) CALCIUM (test code 8.1 mg/dL 8.3-10.6 L = 09D) VANCOMYCIN [id number] 09:41:00 Test Item Value Reference Range Interpretation Comments VANC TROGH (test code = VANCT) 17.6 ug/dL 10.0-20.0 BASIC METABOLIC [id number] 05:36:00 Test Item Value Reference Range Interpretation Comments GLUCOSE (test code 101 mg/dL 75-100 H = 06D) SODIUM (test code 141 mmol/L 136-145 = 01A) POTASSIUM (test 3.0 mmol/L 3.6-5.1 L code = 01B) CHLORIDE (test 105 mmol/L 98-107 code = 04A) CO2 (test code = 29 mmol/L 20-31 02A) ANION GAP (test 10.0 mmol/L code = ANG) BUN (test code = 13 mg/dL 9-23 05D) CREATININE (test 1.0 mg/dL 0.6-1.0 code = 03E) GFR (test code = 59 See_Comment L [Automated GFR) mL/min/1.73m\S\2 message] Th e system which generated this result transmit edward reference range : >=90. The reference range was not used to interpret this result as normal/abnormal . GFR 69 See_Comment L [Automated PANAMANIAN (test mL/min/1.73m\S\2 message] The code = GFRAA) system which generated this result transmit edward reference range : >=90. The reference range was not used to interpret this result as normal/abnormal . EGFR (test code = eGFR BY EGFR) CKD-EPI CALCULATION IS NOT RECOMMENDED FOR PATIENTS UNDER 18 YEARS OF AGE. BUN/CREA (test 13 03-21 code = BCR) CALCIUM (test code 7.8 mg/dL 8.3-10.6 L = 09D) CBC (INCLUDES AUTOMATED DIFFERENTIAL)2021-07-29 05:23:00 Test Item Value Reference Range Interpretation Comments WBC (test code = WBC) 7.6 10\S\3/uL 4.5-11.0 RBC (test code = RBC) 4.26 10\S\6/uL 4.20-5.60 HGB (test code = HBG) 13.6 g/dL 12.0-15.5 HCT (test code = HCT) 40.8 % 35.0-44.0 MCV (test code = MCV) 95.8 fL 81.0-99.0 MCH (test code = MCH) 31.9 pg 27.0-31.0 H MCHC (test code = MCHC) 33.3 g/dL 32.0-36.0 RDW (test code = RDW) 14.4 % 11.5-14.5 PLT (test code = PLT) 167 10\S\3/uL 130-400 MPV (test code = MPV) 11.7 fL 9.4-12.4 NEUTROP # (test code = NE#) 4.9 10\S\3/uL 1.6-8.0 LYMPH # (test code = LY#) 2.0 10\S\3/uL 1.1-3.5 MONOCYTE # (test code = MO#) 0.7 10\S\3/uL 0.0-1.1 EOSINOPH # (test code = EO#) 0.0 10\S\3/uL 0.0-0.7 BASOPHIL # (test code = BA#) 0.0 10\S\3/uL 0.0-0.3 IG # (test code = IG#) 0.02 10\S\3/uL 0.00-0.06 NRBC # (test code = NRBC#) 0.00 10\S\3/uL 0.00-0.01 NEUTROPH % (test code = NE%) 64.9 % 35.0-73.0 LYMPH % (test code = LY%) 25.8 % 20.0-55.0 MONO % (test code = MO%) 8.6 % 2.5-10.0 EOSINOPH % (test code = EO%) 0.1 % 0.0-5.0 BASOPHIL % (test code = BA%) 0.3 % 0.0-2.0 IG % (test code = IG%) 0.3 % 0.0-0.8 NRBC% (test code = NRBC%) 0.0 % 0.0-0.2 MANDIFF (test code = MDIFF) NO RBC MORPH (test code = RBCMOR) NORMAL U/S VENOUS DOPPLER KARLA LOW [id number] 01:46:07 [facility] : 1955 Sex: FEXAM: BILATERAL LOWER EXTREMITY VENOUS DUPLEX ULTRASOUNDINDICATION: Elevated d-dimerCOMPARISON: None availableTECHNIQUE: Carrion scale, color Doppler and spectral waveform analysis of the bilateral lowerextremities deep venous system was performed. FINDINGS: RIGHT:COMMON FEMORAL: Fully compressible with normal spontaneous waveforms. SUPERFICIAL FEMORAL, PROXIMAL: Fully compressible with normal spontaneous waveforms.SUPERFICIAL FEMORAL, MID: Patent with normal spontaneous waveforms.SUPERFICIAL FEMORAL, DISTAL: Fully compressible with normal spontaneous waveforms. POPLITEAL: Fully compressible with normal spontaneous waveforms. LEFT: COMMON FEMORAL: Fully compressible with normal spontaneous waveforms. SUPERFICIAL FEMORAL, PROXIMAL: Fully compressible with normal spontaneous waveforms.SUPERFICIAL FEMORAL, MID: Patent with normal spontaneous waveforms.SUPERFICIAL FEMORAL, DISTAL: Fully compressible with normal spontaneous waveforms. POPLITEAL: Fully compressible with normal spontaneous waveforms. Other: Normal bilateral response to augmentation. IMPRESSION: No evidence of deep venous thrombosis above the bilateral calves. LOCATION: R 16Electronically signed by: Doris Gillette MD 07/29/2021 1:46 AM CDT [id number] NATRIURETIC [id number] 15:16:00 Test Item Value Reference Range Interpretation Comments BNP (test code = 1010 pg/mL See_Comment H [Automated message] The A74) system which ge nerated this result tra nsmitted reference range : <=100. The reference r azra was not used to int erpret this result as normal/abnormal . CBC WITH MANUAL [id number] 07:39:00 Test Item Value Reference Range Interpretation Comments WBC (test code = WBC) 9.8 10\S\3/uL 4.5-11.0 RBC (test code = RBC) 4.44 10\S\6/uL 4.20-5.60 HGB (test code = HBG) 14.1 g/dL 12.0-15.5 HCT (test code = HCT) 42.9 % 35.0-44.0 MCV (test code = MCV) 96.6 fL 81.0-99.0 MCH (test code = MCH) 31.8 pg 27.0-31.0 H MCHC (test code = MCHC) 32.9 g/dL 32.0-36.0 RDW (test code = RDW) 14.3 % 11.5-14.5 PLT (test code = PLT) 184 10\S\3/uL 130-400 MPV (test code = MPV) 11.4 fL 9.4-12.4 NEUTROP # (test code = 8.1 10\S\3/uL 1.6-8.0 H NE#) LYMPH # (test code = 1.1 10\S\3/uL 1.1-3.5 LY#) MONOCYTE # (test code = 0.6 10\S\3/uL 0.0-1.1 MO#) EOSINOPH # (test code = 0.0 10\S\3/uL 0.0-0.7 EO#) BASOPHIL # (test code = 0.0 10\S\3/uL 0.0-0.3 BA#) IG # (test code = IG#) 0.04 10\S\3/uL 0.00-0.06 NRBC # (test code = 0.00 10\S\3/uL 0.00-0.01 NRBC#) NEUTROPH % (test code = 82.9 % 35.0-73.0 H NE%) LYMPH % (test code = 10.9 % 20.0-55.0 L LY%) MONO % (test code = 5.7 % 2.5-10.0 MO%) EOSINOPH % (test code = 0.0 % 0.0-5.0 EO%) BASOPHIL % (test code = 0.1 % 0.0-2.0 BA%) IG % (test code = IG%) 0.4 % 0.0-0.8 NRBC% (test code = 0.0 % 0.0-0.2 NRBC%) MAN DIFF (test code = MANUAL HMDIFF) DIFFERENTIAL SEG (test code = SEG) 78 % 42-75 H BAND (test code = BAND) 0 % 0-8 LYMPH (test code = 15 % 20-51 L LYMPH) MONO (test code = MONO) 7 % 3-11 EOS (test code = EOS) 0 % 0-10 BASO (test code = BASO) 0 % 0-2 RBC MORPH (test code = ABNORMAL NORMAL A RBCMORN) PLT EST (test code = ADEQUATE ADEQUATE PLTEST) PLT MORPH (test code = NORMAL (1.5-3 um) NORMAL PLTMOR) ANISO (test code = 1+ NONE A ANISO) HYPOCHROM (test code = 1+ NONE A HYPOC) CARDIAC [id number] 07:02:00 Test Item Value Reference Range Interpretation Comments TROPONIN I (test code = A84) 106.56 pg/mL 0.00-45.20 BASIC METABOLIC [id number] 06:59:00 Test Item Value Reference Range Interpretation Comments GLUCOSE (test code 165 mg/dL 75-100 H = 06D) SODIUM (test code 140 mmol/L 136-145 = 01A) POTASSIUM (test 3.0 mmol/L 3.6-5.1 L code = 01B) CHLORIDE (test 105 mmol/L 98-107 code = 04A) CO2 (test code = 24 mmol/L 20-31 02A) ANION GAP (test 14.0 mmol/L code = ANG) BUN (test code = 13 mg/dL 12-23 05D) CREATININE (test 0.7 mg/dL 0.6-1.0 code = 03E) GFR (test code = 91 See_Comment [Automated GFR) mL/min/1.73m\S\2 message] Th e system which generated this result transmit edward reference range : >=90. The reference range was not used to interpret this result as normal/abnormal . GFR 106 See_Comment [Automated PANAMANIAN (test mL/min/1.73m\S\2 message] The code = GFRAA) system which generated this result transmit edward reference range : >=90. The reference range was not used to interpret this result as normal/abnormal . EGFR (test code = eGFR BY EGFR) CKD-EPI CALCULATION IS NOT RECOMMENDED FOR PATIENTS UNDER 18 YEARS OF AGE. BUN/CREA (test 03-21 code = BCR) CALCIUM (test code 7.4 mg/dL 8.3-10.6 L = 09D) [id number] 06:48:00 Test Item Value Reference Range Interpretation Comments D-DIMER (test code = 607 ng/mL D-DU 0-234 H DDI) D-DIMER COMMENT (test *Level to rule out code = DDCOM) DVT or PE: <235 ng/mL D-DU* CARDIAC [id number] 00:54:00 Test Item Value Reference Range Interpretation Comments TROPONIN I (test code = A84) 141.88 pg/mL 0.00-45.20 [facility] 12 PANEL *OW* [id number] 12:27:00 Test Item Value Reference Range Interpretation Comments ALBUMIN (test code = GALB) 3.9 g/dL 3.5-5.5 GLUCOSE (test code = GGUL) 102 mg/dL 73-118 CREATININE (test code = GCRE) 0.8 mg/dL 0.6-1.2 BUN (test code = GBUN) 15 mg/dL 7-22 CALCIUM (test code = GCL+) 8.4 mg/dL 8.0-10.3 SODIUM (test code = GNA+) 142 mmol/L 128-145 POTASSIUM (test code = GK+) 3.6 mmol/L 3.6-5.1 CHLORIDE (test code = GCL-) 110 mmol/L 98-108 H TCO2 (test code = GTC02) 28 mmol/L 18-33 MAGNESIUM (test code = GMG+) 1.7 mg/dL 1.6-2.3 LACTATE (test code = SOPHIA) 1.30 mmol/L 0.53-2.10 PHOSPHORUS (test code = OPHOS) 3.2 mg/dL 2.2-4.1 [facility] 12 PANEL *OW* [id number] 10:58:00 Test Item Value Reference Range Interpretation Comments ALBUMIN (test code = GALB) 3.7 g/dL 3.5-5.5 GLUCOSE (test code = GGUL) 102 mg/dL 73-118 CREATININE (test code = GCRE) 0.9 mg/dL 0.6-1.2 BUN (test code = GBUN) 15 mg/dL 7-22 CALCIUM (test code = GCL+) 8.9 mg/dL 8.0-10.3 SODIUM (test code = GNA+) 137 mmol/L 128-145 POTASSIUM (test code = GK+) 3.9 mmol/L 3.6-5.1 CHLORIDE (test code = GCL-) 106 mmol/L 98-108 TCO2 (test code = GTC02) 29 mmol/L 18-33 MAGNESIUM (test code = GMG+) 2.0 mg/dL 1.6-2.3 LACTATE (test code = SOPHIA) 2.25 mmol/L 0.53-2.10 H PHOSPHORUS (test code = OPHOS) 4.3 mg/dL 2.2-4.1 H INFLUENZA A AND B [id number] 10:38:00 Test Item Value Reference Range Interpretation Comments INFLUENZ A (test code = INFA) NEGATIVE NEGATIVE INFLUENZ B (test code = INFB) NEGATIVE NEGATIVE SARS-CoV (RAPID ANTIGEN) [id number] 10:38:00 Test Item Value Reference Range Interpretation Comments SARS-CoV (ANTIGEN) NEGATIVE NEGATIVE (test code = COVAG) COVID AG (test This test has been code = COVAGC) marketed under the FDA Emergency Use Authorization (EUA) to meet challenges of the COVID-19 pandemic. The validation standards normally enforced by the FDA and the [employer] [place] [employer] [employer] ([employer]) are more stringent than those required for this test. Therefore, the result should be interpreted with caution and close attention to other clinical and epidemiological data TROPONIN I OW2021-07-27 10:30:00 Test Item Value Reference Range Interpretation Comments TROPONIN I (test <0.05 ng/mL See_Comment [Automated message] code = GTPI) The system [employer] generated this result transmitted ref erence range: <=0.05. The reference range was not used to int erpret this result as normal/abnormal . DIRECT STREP GROUP [id number] 10:29:00 Test Item Value Reference Range Interpretation Comments Strep A Ag (test code = STREP) NEGATIVE NEGATIVE BRAIN NATRIURETIC PEPTIDE OW2021-07-27 10:15:00 Test Item Value Reference Range Interpretation Comments BNP (test code = 1130 pg/mL See_Comment H [Automated message] The OBNP) system which ge nerated this result tra nsmitted reference range : <=100. The reference r azra was not used to int erpret this result as normal/abnormal . [employer] 8 Panel *OW* [id number] 10:02:00 Test Item Value Reference Range Interpretation Comments GLUCOSE (test code = GGUL) 183 mg/dL 73-118 H BUN (test code = GBUN) 15 mg/dL 7-22 CREATININE (test code = GCRE) 0.9 mg/dL 0.6-1.2 CK TOTAL (test code = GCK) 199 U/L 30-190 H SODIUM (test code = GNA+) 138 mmol/L 128-145 POTASSIUM (test code = GK+) 3.6 mmol/L 3.6-5.1 CHLORIDE (test code = GCL-) 103 mmol/L 98-108 TCO2 (test code = GTC02) 26 mmol/L 18-33 GENERAL CHEMISTRY 13 *OW* [id number] 10:02:00 Test Item Value Reference Range Interpretation Comments GLUCOSE (test code = GGUL) 183 mg/dL 73-118 H BUN (test code = GBUN) 15 mg/dL 7-22 CREATININE (test code = GCRE) 0.9 mg/dL 0.6-1.2 URIC ACID (test code = GUA) 4.2 mg/dL 2.2-6.6 CALCIUM (test code = GCL+) 8.8 mg/dL 8.0-10.3 ALBUMIN (test code = GALB) 3.9 g/dL 3.5-5.5 PROTEIN (test code = GTP) 7.5 g/dL 6.4-8.1 ALT (test code = GALT) 55 U/L 10-47 H AST (test code = CASANDRA) 80 U/L 11-38 H ALK PHOS (test code = GALP) 82 U/L 42-141 BILI TOTAL (test code = GTBIL) 0.7 mg/dL 0.2-1.6 GGT (test code = GGGT) 68 U/L 5-65 H AMYLASE (test code = GAMY) 86 U/L 14-97 XR CHEST 1 VIEW PORTABLE *OW*2021-07-27 10:00:22 [facility] : 1955 Sex: FPortable AP chest, 1 viewLocation Code: [id number] HISTORY: DyspneaCOMPARISON: 09/15/2017COMMENT: The heart size is normal with central congestion and scattered patchy diffuse bilateral perihilar and lower lobe infiltrates consistent with pneumonia progressive in the interval. Arthrosis seen about both shoulders.IMPRESSION: Central pulmonary congestion with moderate bilateral bronchopneumonia.Electron ically signed by: Girish Gillespie MD 07/27/2021 10:00 AM CDT [id number] (INCLUDES AUTOMATED DIFFERENTIAL) *2021-07-27 10:00:00 Test Item Value Reference Range Interpretation Comments WBC (test code = WBC) 9.8 10\S\3/uL 4.5-11.0 RBC (test code = RBC) 5.26 10\S\6/uL 4.20-5.60 HGB (test code = HBG) 16.9 g/dL 12.0-15.5 H HCT (test code = HCT) 51.7 % 35.0-44.0 H MCV (test code = MCV) 98.2 fL 81.0-99.0 MCH (test code = MCH) 32.1 pg 27.0-31.0 H MCHC (test code = MCHC) 32.7 g/dL 32.0-36.0 RDW (test code = RDW) 14.3 % 11.5-14.5 PLT (test code = PLT) 224 10\S\3/uL 130-400 MPV (test code = OMPV) 9.3 fL 6.2-10.2 NEUTROP # (test code = NE#) 3.9 10\S\3/uL 1.6-8.0 LYMPH # (test code = LY#) 4.7 10\S\3/uL 1.1-3.5 H MID # (test code = GMID#) 1.2 10\S\3/uL 0.0-1.1 H GRAN % (test code = GRA%) 40.1 % 35.0-73.0 LYMPH % (test code = GLY%) 47.5 % 20.0-55.0 MID % (test code = GMID%) 12.4 % 0.0-10.0 H XR SHOULDER RIGHT 3VIEWS *OW*2021-02-22 14:34:03 [facility] : 1955 Sex: FEXAMINATION:XR SHOULDER RIGHT 3VIEWS CLINICAL INDICATION:Female, 65 years old with Pain of right shoulder jointCOMPARISON: NoneFINDINGS:Three view(s) of the right shoulder obtained.Joint spaces: Moderate osteoarthritis of the acromioclavicular and glenohumeral joints.Bones: No acute fracture.Soft tissues: Unremarkable.IMPRESSION: Moderate osteoarthritis. Otherwise, no acute abnormality.Electronically signed by: Kenneth Sanchez MD 02/22/2021 2:34 PM [facility] [id number] TIME i-STAT OW2020-08-26 10:11:00 Test Item Value Reference Range Interpretation Comments PT (test code = 13.7 s 10.0-13.0 H PT1) INR (test code = 1.1 INR) INRH (test code = SUGGESTED INRH) THERAPEUTIC RANGE FOR INR: 2.5 - 3.5 For Patients with Prosthetic Valves or Patients with recurrent Thromboembolic Events 2.0 - 3.0 For Most Other Applications [employer] 8 Panel *OW* [id number] 09:55:00 Test Item Value Reference Range Interpretation Comments GLUCOSE (test code = GGUL) 89 mg/dL 73-118 BUN (test code = GBUN) 12 mg/dL 7-22 CREATININE (test code = GCRE) 0.7 mg/dL 0.6-1.2 CK TOTAL (test code = GCK) 171 U/L 30-190 SODIUM (test code = GNA+) 142 mmol/L 128-145 POTASSIUM (test code = GK+) 3.5 mmol/L 3.6-5.1 L CHLORIDE (test code = GCL-) 104 mmol/L 98-108 TCO2 (test code = GTC02) 26 mmol/L 18-33 CBC (INCLUDES AUTOMATED DIFFERENTIAL) *2020-08-26 09:45:00 Test Item Value Reference Range Interpretation Comments WBC (test code = WBC) 7.5 10\S\3/uL 4.5-11.0 RBC (test code = RBC) 4.66 10\S\6/uL 4.20-5.60 HGB (test code = HBG) 15.3 g/dL 12.0-15.5 HCT (test code = HCT) 46.9 % 35.0-44.0 H MCV (test code = MCV) 100.7 fL 81.0-99.0 H MCH (test code = MCH) 32.8 pg 27.0-31.0 H MCHC (test code = MCHC) 32.6 g/dL 32.0-36.0 RDW (test code = RDW) 13.8 % 11.5-14.5 PLT (test code = PLT) 219 10\S\3/uL 130-400 MPV (test code = OMPV) 9.2 fL 6.2-10.2 NEUTROP # (test code = NE#) 4.7 10\S\3/uL 1.6-8.0 LYMPH # (test code = LY#) 2.2 10\S\3/uL 1.1-3.5 MID # (test code = GMID#) 0.7 10\S\3/uL 0.0-1.1 GRAN % (test code = GRA%) 62.1 % 35.0-73.0 LYMPH % (test code = GLY%) 28.9 % 20.0-55.0 MID % (test code = GMID%) 9.0 % 0.0-10.0 SARS-CoV (RAPID ANTIGEN) WH2020-08-26 09:39:00 Test Item Value Reference Range Interpretation Comments SARS-CoV (ANTIGEN) NEGATIVE NEGATIVE (test code = COVAG) COVID AG (test This test has been code = COVAGC) marketed under the FDA Emergency Use Authorization (EUA) to meet challenges of the COVID-19 pandemic. The validation standards normally enforced by the FDA and the [employer] ([employer]) are more stringent than those required for this test. Therefore, the result should be interpreted with caution and close attention to other clinical and epidemiological data XR HIP RIGHT UNILATERAL 2 VIEWS *OW*2020-08-26 07:50:17 [facility] : 1955 Sex: FEXAM: XR HIP 2 OR MORE VIEWS BILATERALCLINICAL HISTORY: PainCOMPARISON: None available.TECHNIQUE: AP and lateral views of the right hip.LOCATION: [id number]:Bones: No displaced fracture or dislocation identified. Normal marrow density. Prominent iliac crest and minimal greater trochanteric enthesophyte formation noted.Joint spaces: Right hip joint demonstrates minimal joint space narrowing and early marginal osteophyte formation. The femoral head demonstrates normal articulation and alignment with the acetabulum. Incidental note of mild bilateral sacroiliac joint osteoarthritis.Soft tissues: Unremarkable.IMPRESSION:No acute osseous findings. Mild right hip joint and bilateral sacroiliac joint os teoarthritis.Electronically signed by: Yohan Garcia DO 08/26/2020 7:50 AM CDT HAND LEFT COMPLETE 3 VIEWS *OW*2020-08-26 07:46:40 [facility] : 1955 Sex: FEXAM: XR HAND 3 OR MORE VIEWSCLINICAL HISTORY: PainCOMPARISON: None available.TECHNIQUE: PA, Oblique, and lateral views of the left hand.LOCATION: [id number]:Bones: No dislocation identified. Normalmarrow density. A well-corticated osseous density is seen adjacent to the ulnar styloid process, favoring sequelae of remote injury.Joint spaces: Moderate proximal and distal interphalangeal joint space narrowing with additional joint space narrowing noted at the first interphalangeal and metacarpophalangeal joints. These demonstrate prominent marginal osteophyte formation, particularly at the distalinterphalangeal joints. No periarticular erosions.Soft tissues: Unremarkable.IMPRESSION:No acute osseous findings. There is evidence of remote injury at the ulnar styloid process.Moderate osteoarthritis as detailed above.Electronically signed by: Yohan Garcia DO 08/26/2020 7:46 AM CDT [id number] I i-STAT OW2017-10-04 11:45:00 Test Item Value Reference Range Interpretation Comments TROPONIN I (test code = A84) 0.010 ng/mL 0.000-0.045 CT ABDOMEN AND PELVIS W/O CONTRAST *OW*2017-10-04 11:28:17CT abdomen and pelvis without contrastLocation Code: [id number] HISTORY: Abdominal painCOMPARISON: Technique: Helical CT of the abdomen and pelvis was performed without contrast.Thin section axial, sagittal and coronal images were obtained. Automaticexposure control was utilized. Total DLP: 493.23 mGycmFINDINGS:The lung bases are clear. The unenhanced liver, gallbladder, adrenal glands, kidneys, pancreas, andspleen are unremarkable.There is mild apparent thickening inflammation of the distal stomach with mildadjacent inflammatory change. There is no adjacent fluid collection or freeair. The unopacified loops of bowel demonstrate no focal thickening ordilatation. The appendix is visualizedand is normal. There is no freeperitoneal air or fluid. Calcified atherosclerotic plaque is scattered throughout the abdominal aortawithout aneurysm. There is no retroperitoneal mass or fluid collection. Theurinary bladder is unremarkable. There are several degenerated, calcifieduterine fibroids. There is no pelvic mass or fluid collection. Degenerative changes are noted throughout the spine. Midline laparotomy changesare noted. The skin, and surrounding soft tissues are unremarkable.IMPRESSION:1.Mild apparent thickening and inflammation of the distal stomach. Patient isknown to have had a perforated ulcer on recent prior exam and there has beeninterval laparotomy. There is no residual fluid col lection or free air.2. Otherwise, no acute intra-abdominal or pelvic abnormality.CHEM8+ i-STAT OW2017-10-04 11:20:00 Test Item Value Reference Range Interpretation Comments SODIUM (test code = XUAN) 137 mmol/L 138-146 L POTASSIUM (test code = KI) 3.6 mmol/L 3.5-4.9 CHLORIDE (test code = CLI) 102 mmol/L 98-109 CA IONIZED (test code = ICAI) 1.11 mmol/L 1.12-1.32 L GLUCOSE (test code = GLUI) 162 mg/dL 75-100 H TCO2 (test code = TCO2) 24 mmol/L 24-29 BUN (test code = BUN1) 24 mg/dL 8-26 CREATININE (test code = CREAI) 0.9 mg/dL 0.6-1.3 ANION GAP (test code = GANG) 15.0 mmol/L U/S KIDNEY (RENAL)2017-09-21 07:28:32CLINICAL INFORMATION: Essential hypertension workup.Dictation location: [id number]: Abdomen CT 09/13/17 reported no apparent abnormality of the urinarytract.Technique: Real time carrion scale study withDoppler and spectral analysis.Findings: Right kidney: 8.8 x 4.8 x 4.8 cm. No elevated peak systolic flow velocities inthe aorta or renal arteries. Flow ratio of the renal artery/aorta was 1.0. Nohydronephrosis or stones were identified. Resistive indices nominal..Left kidney: 12.1 x 5.1 x 6.0 cm. No elevated peak systolic flow velocities. Nohydronephrosis or stones. Renal artery/aorta flow ratio 1.3.Resistive indicesnominal.No apparent ascites. IMPRESSION: Right kidney is smaller than the left. Otherwise unremarkable.CBC WITH MANUAL [id number] 06:34:00 Test Item Value Reference Range Interpretation Comments WBC (test code = WBC) 8.9 10\S\3/uL 4.5-11.0 RBC (test code = RBC) 4.67 10\S\6/uL 4.20-5.60 HGB (test code = HBG) 14.5 g/dL 12.0-15.5 HCT (test code = HCT) 43.0 % 35.0-44.0 MCV (test code = MCV) 92.1 fL 81.0-99.0 MCH (test code = MCH) 31.0 pg 27.0-31.0 MCHC (test code = MCHC) 33.7 g/dL 32.0-36.0 RDW (test code = RDW) 14.8 % 11.5-14.5 H PLT (test code = PLT) 294 10\S\3/uL 130-400 MPV (test code = MPV) 11.1 fL 9.4-12.4 NEUTROP # (test code = 5.0 10\S\3/uL 1.6-8.0 NE#) LYMPH # (test code = 2.6 10\S\3/uL 1.1-3.5 LY#) MONOCYTE # (test code = 1.2 10\S\3/uL 0.0-1.1 H MO#) EOSINOPH # (test code = 0.1 10\S\3/uL 0.0-0.7 EO#) BASOPHIL # (test code = 0.0 10\S\3/uL 0.0-0.3 BA#) IG # (test code = IG#) 0.05 10\S\3/uL 0.00-0.06 NRBC # (test code = 0.00 10\S\3/uL 0.00-0.01 NRBC#) NEUTROPH % (test code = 55.7 % 35.0-73.0 NE%) LYMPH % (test code = 28.9 % 20.0-55.0 LY%) MONO % (test code = 13.2 % 2.5-10.0 H MO%) EOSINOPH % (test code = 1.3 % 0.0-5.0 EO%) BASOPHIL % (test code = 0.3 % 0.0-2.0 BA%) IG % (test code = IG%) 0.6 % 0.0-0.8 NRBC% (test code = 0.0 % 0.0-0.2 NRBC%) MAN DIFF (test code = MANUAL HMDIFF) DIFFERENTIAL SEG (test code = SEG) 64 % 42-75 BAND (test code = BAND) 0 % 0-8 LYMPH (test code = 25 % 20-51 LYMPH) ATYP LYMP (test code = 1 % <=5 ATYL) MONO (test code = MONO) 9 % 3-11 EOS (test code = EOS) 1 % 0-10 BASO (test code = BASO) 0 % 0-2 RBC MORPH (test code = NORMAL NORMAL RBCMORN) PLT EST (test code = ADEQUATE ADEQUATE PLTEST) PLT MORPH (test code = NORMAL (1.5-3 um) NORMAL PLTMOR) [id number] 05:49:00 Test Item Value Reference Range Interpretation Comments MAGNESIUM (test code = 48A) 1.9 mg/dL 1.8-2.4 BASIC METABOLIC [id number] 05:47:00 Test Item Value Reference Range Interpretation Comments GLUCOSE (test code = 06D) 103 mg/dL 75-100 H SODIUM (test code = 01A) 139 mmol/L 136-145 POTASSIUM (test code = 01B) 3.6 mmol/L 3.6-5.1 CHLORIDE (test code = 04A) 105 mmol/L 98-107 CO2 (test code = 02A) 25 mmol/L 22-32 ANION GAP (test code = ANG) 12.6 mmol/L BUN (test code = 05D) 12 mg/dL 7-18 CREATININE (test code = 03E) 0.7 mg/dL 0.4-1.1 BUN/CREA (test code = BCR) 16 12-20 CALCIUM (test code = 09D) 9.0 mg/dL 8.3-9.5 BLOOD [id number] 13:05:00 Test Item Value Reference Range Interpretation Comments Culture Observations (test NO GROWTH AFTER 5 code = COB1) DAYS CBC WITH MANUAL [id number] 07:37:00 Test Item Value Reference Range Interpretation Comments WBC (test code = 10.2 10\S\3/uL 4.5-11.0 WBC) RBC (test code = 4.42 10\S\6/uL 4.20-5.60 RBC) HGB (test code = 13.9 g/dL 12.0-15.5 HBG) HCT (test code = 40.9 % 35.0-44.0 HCT) MCV (test code = 92.5 fL 81.0-99.0 MCV) MCH (test code = 31.4 pg 27.0-31.0 H MCH) MCHC (test code = 34.0 g/dL 32.0-36.0 MCHC) RDW (test code = 14.6 % 11.5-14.5 H RDW) PLT (test code = 215 10\S\3/uL 130-400 PLT) MPV (test code = 11.5 fL 9.4-12.4 MPV) NEUTROP # (test 5.8 10\S\3/uL 1.6-8.0 code = NE#) LYMPH # (test code 2.7 10\S\3/uL 1.1-3.5 = LY#) MONOCYTE # (test 1.4 10\S\3/uL 0.0-1.1 H code = MO#) EOSINOPH # (test 0.2 10\S\3/uL 0.0-0.7 code = EO#) BASOPHIL # (test 0.1 10\S\3/uL 0.0-0.3 code = BA#) IG # (test code = 0.07 10\S\3/uL 0.00-0.06 H IG#) NRBC # (test code 0.00 10\S\3/uL 0.00-0.01 = NRBC#) NEUTROPH % (test 56.8 % 35.0-73.0 code = NE%) LYMPH % (test code 26.9 % 20.0-55.0 = LY%) MONO % (test code 13.4 % 2.5-10.0 H = MO%) EOSINOPH % (test 1.7 % 0.0-5.0 code = EO%) BASOPHIL % (test 0.5 % 0.0-2.0 code = BA%) IG % (test code = 0.7 % 0.0-0.8 IG%) NRBC% (test code = 0.0 % 0.0-0.2 NRBC%) MAN DIFF (test MANUAL code = HMDIFF) DIFFERENTIAL SEG (test code = 43 % 42-75 SEG) BAND (test code = 2 % 0-8 BAND) LYMPH (test code = 34 % 20-51 LYMPH) ATYP LYMP (test 5 % <=5 code = ATYL) MONO (test code = 12 % 3-11 H MONO) EOS (test code = 4 % 0-10 EOS) BASO (test code = 0 % 0-2 BASO) RBC MORPH (test NORMAL NORMAL code = RBCMORN) PLT EST (test code ADEQUATE ADEQUATE = PLTEST) PLT MORPH (test NORMAL (1.5-3 um) NORMAL few lar ge plts, code = PLTMOR) rare giant pl t BASIC METABOLIC [id number] 06:39:00 Test Item Value Reference Range Interpretation Comments GLUCOSE (test code = 06D) 82 mg/dL 75-100 SODIUM (test code = 01A) 138 mmol/L 136-145 POTASSIUM (test code = 01B) 3.3 mmol/L 3.6-5.1 L CHLORIDE (test code = 04A) 104 mmol/L 98-107 CO2 (test code = 02A) 26 mmol/L 22-32 ANION GAP (test code = ANG) 11.3 mmol/L BUN (test code = 05D) 8 mg/dL 7-18 CREATININE (test code = 03E) 0.6 mg/dL 0.4-1.1 BUN/CREA (test code = BCR) 13 12-20 CALCIUM (test code = 09D) 8.4 mg/dL 8.3-9.5 BLOOD [id number] 07:48:00 Test Item Value Reference Range Interpretation Comments Culture Observations (test NO GROWTH AFTER 5 code = COB1) DAYS CBC WITH MANUAL [id number] 05:54:00 Test Item Value Reference Range Interpretation Comments WBC (test code = WBC) 9.7 10\S\3/uL 4.5-11.0 RBC (test code = RBC) 4.66 10\S\6/uL 4.20-5.60 HGB (test code = HBG) 14.6 g/dL 12.0-15.5 HCT (test code = HCT) 43.1 % 35.0-44.0 MCV (test code = MCV) 92.5 fL 81.0-99.0 MCH (test code = MCH) 31.3 pg 27.0-31.0 H MCHC (test code = MCHC) 33.9 g/dL 32.0-36.0 RDW (test code = RDW) 14.7 % 11.5-14.5 H PLT (test code = PLT) 212 10\S\3/uL 130-400 MPV (test code = MPV) 10.8 fL 9.4-12.4 NEUTROP # (test code = 6.0 10\S\3/uL 1.6-8.0 NE#) LYMPH # (test code = 2.1 10\S\3/uL 1.1-3.5 LY#) MONOCYTE # (test code = 1.2 10\S\3/uL 0.0-1.1 H MO#) EOSINOPH # (test code = 0.2 10\S\3/uL 0.0-0.7 EO#) BASOPHIL # (test code = 0.0 10\S\3/uL 0.0-0.3 BA#) IG # (test code = IG#) 0.05 10\S\3/uL 0.00-0.06 NRBC # (test code = 0.00 10\S\3/uL 0.00-0.01 NRBC#) NEUTROPH % (test code = 62.3 % 35.0-73.0 NE%) LYMPH % (test code = 22.0 % 20.0-55.0 LY%) MONO % (test code = 12.8 % 2.5-10.0 H MO%) EOSINOPH % (test code = 2.1 % 0.0-5.0 EO%) BASOPHIL % (test code = 0.3 % 0.0-2.0 BA%) IG % (test code = IG%) 0.5 % 0.0-0.8 NRBC% (test code = 0.0 % 0.0-0.2 NRBC%) MAN DIFF (test code = MANUAL HMDIFF) DIFFERENTIAL SEG (test code = SEG) 61 % 42-75 BAND (test code = BAND) 0 % 0-8 LYMPH (test code = 23 % 20-51 LYMPH) MONO (test code = MONO) 14 % 3-11 H EOS (test code = EOS) 2 % 0-10 BASO (test code = BASO) 0 % 0-2 RBC MORPH (test code = NORMAL NORMAL RBCMORN) PLT EST (test code = ADEQUATE ADEQUATE PLTEST) PLT MORPH (test code = NORMAL (1.5-3 um) NORMAL PLTMOR) VACUOLES (test code = PRESENT NONE A VAC) BASIC METABOLIC [id number] 05:11:00 Test Item Value Reference Range Interpretation Comments GLUCOSE (test code = 06D) 111 mg/dL 75-100 H SODIUM (test code = 01A) 138 mmol/L 136-145 POTASSIUM (test code = 01B) 3.7 mmol/L 3.6-5.1 CHLORIDE (test code = 04A) 106 mmol/L 98-107 CO2 (test code = 02A) 25 mmol/L 22-32 ANION GAP (test code = ANG) 10.7 mmol/L BUN (test code = 05D) 6 mg/dL 7-18 L CREATININE (test code = 03E) 0.6 mg/dL 0.4-1.1 BUN/CREA (test code = BCR) 9 12-20 L CALCIUM (test code = 09D) 8.8 mg/dL 8.3-9.5 BASIC METABOLIC [id number] 05:33:00 Test Item Value Reference Range Interpretation Comments GLUCOSE (test code = 06D) 115 mg/dL 75-100 H SODIUM (test code = 01A) 140 mmol/L 136-145 POTASSIUM (test code = 01B) 3.7 mmol/L 3.6-5.1 CHLORIDE (test code = 04A) 110 mmol/L 98-107 H CO2 (test code = 02A) 22 mmol/L 22-32 ANION GAP (test code = ANG) 11.7 mmol/L BUN (test code = 05D) 5 mg/dL 7-18 L CREATININE (test code = 03E) 0.5 mg/dL 0.4-1.1 BUN/CREA (test code = BCR) 11 12-20 L CALCIUM (test code = 09D) 8.3 mg/dL 8.3-9.5 CBC (INCLUDES AUTOMATED DIFFERENTIAL)2017-09-18 05:15:00 Test Item Value Reference Range Interpretation Comments WBC (test code = WBC) 8.8 10\S\3/uL 4.5-11.0 RBC (test code = RBC) 4.77 10\S\6/uL 4.20-5.60 HGB (test code = HBG) 15.0 g/dL 12.0-15.5 HCT (test code = HCT) 44.2 % 35.0-44.0 H MCV (test code = MCV) 92.7 fL 81.0-99.0 MCH (test code = MCH) 31.4 pg 27.0-31.0 H MCHC (test code = MCHC) 33.9 g/dL 32.0-36.0 RDW (test code = RDW) 14.7 % 11.5-14.5 H PLT (test code = PLT) 226 10\S\3/uL 130-400 MPV (test code = MPV) 11.2 fL 9.4-12.4 NEUTROP # (test code = NE#) 6.5 10\S\3/uL 1.6-8.0 LYMPH # (test code = LY#) 1.1 10\S\3/uL 1.1-3.5 MONOCYTE # (test code = MO#) 1.1 10\S\3/uL 0.0-1.1 EOSINOPH # (test code = EO#) 0.0 10\S\3/uL 0.0-0.7 BASOPHIL # (test code = BA#) 0.0 10\S\3/uL 0.0-0.3 IG # (test code = IG#) 0.03 10\S\3/uL 0.00-0.06 NRBC # (test code = NRBC#) 0.00 10\S\3/uL 0.00-0.01 NEUTROPH % (test code = NE%) 74.3 % 35.0-73.0 H LYMPH % (test code = LY%) 12.1 % 20.0-55.0 L MONO % (test code = MO%) 12.9 % 2.5-10.0 H EOSINOPH % (test code = EO%) 0.3 % 0.0-5.0 BASOPHIL % (test code = BA%) 0.1 % 0.0-2.0 IG % (test code = IG%) 0.3 % 0.0-0.8 NRBC% (test code = NRBC%) 0.0 % 0.0-0.2 MANDIFF (test code = MDIFF) NO NO RBC MORPH (test code = RBCMOR) NORMAL BASIC METABOLIC [id number] 21:29:00 Test Item Value Reference Range Interpretation Comments GLUCOSE (test code = 06D) 143 mg/dL 75-100 H SODIUM (test code = 01A) 141 mmol/L 136-145 POTASSIUM (test code = 01B) 3.3 mmol/L 3.6-5.1 L CHLORIDE (test code = 04A) 109 mmol/L 98-107 H CO2 (test code = 02A) 22 mmol/L 22-32 ANION GAP (test code = ANG) 13.3 mmol/L BUN (test code = 05D) 4 mg/dL 7-18 L CREATININE (test code = 03E) 0.5 mg/dL 0.4-1.1 BUN/CREA (test code = BCR) 8 12-20 L CALCIUM (test code = 09D) 7.9 mg/dL 8.3-9.5 L BASIC METABOLIC [id number] 17:18:00 Test Item Value Reference Range Interpretation Comments GLUCOSE (test code = 06D) 117 mg/dL 75-100 H SODIUM (test code = 01A) 142 mmol/L 136-145 POTASSIUM (test code = 01B) 3.1 mmol/L 3.6-5.1 L CHLORIDE (test code = 04A) 108 mmol/L 98-107 H CO2 (test code = 02A) 23 mmol/L 22-32 ANION GAP (test code = ANG) 14.1 mmol/L BUN (test code = 05D) 5 mg/dL 7-18 L CREATININE (test code = 03E) 0.5 mg/dL 0.4-1.1 BUN/CREA (test code = BCR) 10 12-20 L CALCIUM (test code = 09D) 8.0 mg/dL 8.3-9.5 L URINE [id number] 07:45:00 Test Item Value Reference Range Interpretation Comments Culture Observations (test NO GROWTH (<1,000 code = COB1) CFU/ML) BASIC METABOLIC [id number] 07:18:00 Test Item Value Reference Range Interpretation Comments GLUCOSE (test code = 06D) 109 mg/dL 75-100 H SODIUM (test code = 01A) 140 mmol/L 136-145 POTASSIUM (test code = 01B) 2.7 mmol/L 3.6-5.1 LL CHLORIDE (test code = 04A) 109 mmol/L 98-107 H CO2 (test code = 02A) 22 mmol/L 22-32 ANION GAP (test code = ANG) 11.7 mmol/L BUN (test code = 05D) 5 mg/dL 7-18 L CREATININE (test code = 03E) 0.5 mg/dL 0.4-1.1 BUN/CREA (test code = BCR) 10 12-20 L CALCIUM (test code = 09D) 8.1 mg/dL 8.3-9.5 L CBC (INCLUDES AUTOMATED DIFFERENTIAL)2017-09-17 07:06:00 Test Item Value Reference Range Interpretation Comments WBC (test code = WBC) 9.4 10\S\3/uL 4.5-11.0 RBC (test code = RBC) 4.68 10\S\6/uL 4.20-5.60 HGB (test code = HBG) 14.8 g/dL 12.0-15.5 HCT (test code = HCT) 43.1 % 35.0-44.0 MCV (test code = MCV) 92.1 fL 81.0-99.0 MCH (test code = MCH) 31.6 pg 27.0-31.0 H MCHC (test code = MCHC) 34.3 g/dL 32.0-36.0 RDW (test code = RDW) 14.7 % 11.5-14.5 H PLT (test code = PLT) 195 10\S\3/uL 130-400 MPV (test code = MPV) 11.2 fL 9.4-12.4 NEUTROP # (test code = NE#) 7.6 10\S\3/uL 1.6-8.0 LYMPH # (test code = LY#) 0.9 10\S\3/uL 1.1-3.5 L MONOCYTE # (test code = MO#) 0.9 10\S\3/uL 0.0-1.1 EOSINOPH # (test code = EO#) 0.0 10\S\3/uL 0.0-0.7 BASOPHIL # (test code = BA#) 0.0 10\S\3/uL 0.0-0.3 IG # (test code = IG#) 0.05 10\S\3/uL 0.00-0.06 NRBC # (test code = NRBC#) 0.00 10\S\3/uL 0.00-0.01 NEUTROPH % (test code = NE%) 80.3 % 35.0-73.0 H LYMPH % (test code = LY%) 9.2 % 20.0-55.0 L MONO % (test code = MO%) 9.5 % 2.5-10.0 EOSINOPH % (test code = EO%) 0.3 % 0.0-5.0 BASOPHIL % (test code = BA%) 0.2 % 0.0-2.0 IG % (test code = IG%) 0.5 % 0.0-0.8 NRBC% (test code = NRBC%) 0.0 % 0.0-0.2 MANDIFF (test code = MDIFF) NO NO RBC MORPH (test code = RBCMOR) NORMAL [id number] 07:06:00 Test Item Value Reference Range Interpretation Comments MAGNESIUM (test code = 48A) 1.7 mg/dL 1.8-2.4 L BASIC METABOLIC [id number] 07:01:00 Test Item Value Reference Range Interpretation Comments GLUCOSE (test code = 06D) 113 mg/dL 75-100 H SODIUM (test code = 01A) 140 mmol/L 136-145 POTASSIUM (test code = 01B) 3.1 mmol/L 3.6-5.1 L CHLORIDE (test code = 04A) 108 mmol/L 98-107 H CO2 (test code = 02A) 22 mmol/L 22-32 ANION GAP (test code = ANG) 13.1 mmol/L BUN (test code = 05D) 5 mg/dL 7-18 L CREATININE (test code = 03E) 0.6 mg/dL 0.4-1.1 BUN/CREA (test code = BCR) 9 12-20 L CALCIUM (test code = 09D) 8.5 mg/dL 8.3-9.5 CBC (INCLUDES AUTOMATED DIFFERENTIAL)2017-09-16 06:24:00 Test Item Value Reference Range Interpretation Comments WBC (test code = WBC) 13.0 10\S\3/uL 4.5-11.0 H RBC (test code = RBC) 4.87 10\S\6/uL 4.20-5.60 HGB (test code = HBG) 15.4 g/dL 12.0-15.5 HCT (test code = HCT) 45.4 % 35.0-44.0 H MCV (test code = MCV) 93.2 fL 81.0-99.0 MCH (test code = MCH) 31.6 pg 27.0-31.0 H MCHC (test code = MCHC) 33.9 g/dL 32.0-36.0 RDW (test code = RDW) 14.6 % 11.5-14.5 H PLT (test code = PLT) 180 10\S\3/uL 130-400 MPV (test code = MPV) 11.7 fL 9.4-12.4 NEUTROP # (test code = NE#) 11.0 10\S\3/uL 1.6-8.0 H LYMPH # (test code = LY#) 1.0 10\S\3/uL 1.1-3.5 L MONOCYTE # (test code = MO#) 0.9 10\S\3/uL 0.0-1.1 EOSINOPH # (test code = EO#) 0.0 10\S\3/uL 0.0-0.7 BASOPHIL # (test code = BA#) 0.0 10\S\3/uL 0.0-0.3 IG # (test code = IG#) 0.05 10\S\3/uL 0.00-0.06 NRBC # (test code = NRBC#) 0.00 10\S\3/uL 0.00-0.01 NEUTROPH % (test code = NE%) 84.7 % 35.0-73.0 H LYMPH % (test code = LY%) 7.4 % 20.0-55.0 L MONO % (test code = MO%) 7.1 % 2.5-10.0 EOSINOPH % (test code = EO%) 0.2 % 0.0-5.0 BASOPHIL % (test code = BA%) 0.2 % 0.0-2.0 IG % (test code = IG%) 0.4 % 0.0-0.8 NRBC% (test code = NRBC%) 0.0 % 0.0-0.2 MANDIFF (test code = MDIFF) NO NO RBC MORPH (test code = RBCMOR) NORMAL LACTIC [id number] 23:39:00 Test Item Value Reference Range Interpretation Comments LACTIC ACD (test code = LA) 0.8 mmol/L 0.4-2.0 URINALYSIS WITH [id number] 12:26:00 Test Item Value Reference Range Interpretation Comments COLOR (test code = COLU) YELLOW YELLOW CLARITY (test code = CLA) CLEAR CLEAR GLUCOSE UR (test code = UA GLUCOSE) NEGATIVE NEGATIVE BILI UR (test code = BILE) NEGATIVE NEGATIVE KETONES UR (test code = HAMLET) TRACE NEGATIVE A SP GRAVITY (test code = SPGR) 1.021 1.005-1.030 PH UR (test code = PH) 5.5 4.5-8.0 PROTEIN UR (test code = PU) 1+ NEGATIVE A UROBIL UR (test code = UROQ) 0.2 EU/dL 0.2-1.0 NITRITE UR (test code = NITRITE) NEGATIVE NEGATIVE BLOOD UR (test code = UA BLOOD) NEGATIVE NEGATIVE LEUK ES UR (test code = LEUK) TRACE NEGATIVE A WBC UR (test code = UWBC) 3 /HPF 0-5 RBC UR (test code = URBC) 8 /HPF 0-2 H EPITH UR (test code = UEPC) FEW /LPF FEW BACTERIA UR (test code = UBACT) FEW /HPF NONE A CAST UR (test code = CAST) /LPF NONE CRYSTAL UR (test code = CRYU) / LPF NONE MUCUS UR (test code = MUC) FEW / HPF NONE A AMORPH UR (test code = JEFF) / HPF NONE TRICH UR (test code = UTRICH) /HPF NONE YEAST UR (test code = UY) /HPF NONE SPERM UR (test code = USPERM) /HPF NONE XR CHEST 1 VIEW [id number] 10:40:07Exam: Chest portable erectLocation: [id number]: [id number]: LeukocytosisComparison: 09/13/2017.Findings:The current film was exposed in a shallow degree of inspiration with intervaldevelopment of bibasilar atelectasis. The heart size is unchanged. Themediastinal silhouette is unremarkable. The bony thorax is intact. Anasogastric tube traverses the thorax.Impression:Basilar atelectasis.CBC WITH MANUAL [id number] 08:57:00 Test Item Value Reference Range Interpretation Comments WBC (test code = WBC) 12.5 10\S\3/uL 4.5-11.0 H RBC (test code = RBC) 4.65 10\S\6/uL 4.20-5.60 HGB (test code = HBG) 14.8 g/dL 12.0-15.5 HCT (test code = HCT) 43.7 % 35.0-44.0 MCV (test code = MCV) 94.0 fL 81.0-99.0 MCH (test code = MCH) 31.8 pg 27.0-31.0 H MCHC (test code = MCHC) 33.9 g/dL 32.0-36.0 RDW (test code = RDW) 14.7 % 11.5-14.5 H PLT (test code = PLT) 186 10\S\3/uL 130-400 MPV (test code = MPV) 11.4 fL 9.4-12.4 NEUTROP # (test code = 10.2 10\S\3/uL 1.6-8.0 H NE#) LYMPH # (test code = 1.1 10\S\3/uL 1.1-3.5 LY#) MONOCYTE # (test code = 1.1 10\S\3/uL 0.0-1.1 MO#) EOSINOPH # (test code = 0.0 10\S\3/uL 0.0-0.7 EO#) BASOPHIL # (test code = 0.0 10\S\3/uL 0.0-0.3 BA#) IG # (test code = IG#) 0.04 10\S\3/uL 0.00-0.06 NRBC # (test code = 0.00 10\S\3/uL 0.00-0.01 NRBC#) NEUTROPH % (test code = 81.4 % 35.0-73.0 H NE%) LYMPH % (test code = 8.9 % 20.0-55.0 L LY%) MONO % (test code = 9.1 % 2.5-10.0 MO%) EOSINOPH % (test code = 0.1 % 0.0-5.0 EO%) BASOPHIL % (test code = 0.2 % 0.0-2.0 BA%) IG % (test code = IG%) 0.3 % 0.0-0.8 NRBC% (test code = 0.0 % 0.0-0.2 NRBC%) MAN DIFF (test code = MANUAL HMDIFF) DIFFERENTIAL SEG (test code = SEG) 81 % 42-75 H BAND (test code = BAND) 2 % 0-8 LYMPH (test code = 8 % 20-51 L LYMPH) MONO (test code = MONO) 9 % 3-11 EOS (test code = EOS) 0 % 0-10 BASO (test code = BASO) 0 % 0-2 RBC MORPH (test code = NORMAL NORMAL RBCMORN) PLT EST (test code = ADEQUATE ADEQUATE PLTEST) PLT MORPH (test code = NORMAL (1.5-3 um) NORMAL PLTMOR) COMPREHENSIVE METABOLIC [id number] 06:45:00 Test Item Value Reference Range Interpretation Comments GLUCOSE (test code = 06D) 101 mg/dL 75-100 H SODIUM (test code = 01A) 142 mmol/L 136-145 POTASSIUM (test code = 01B) 3.1 mmol/L 3.6-5.1 L CHLORIDE (test code = 04A) 110 mmol/L 98-107 H CO2 (test code = 02A) 23 mmol/L 22-32 ANION GAP (test code = ANG) 12.1 mmol/L BUN (test code = 05D) 10 mg/dL 7-18 CREATININE (test code = 03E) 0.8 mg/dL 0.4-1.1 BUN/CREA (test code = BCR) 13 12-20 CALCIUM (test code = 09D) 7.8 mg/dL 8.3-9.5 L BILI TOTAL (test code = 11A) 1.6 mg/dL 0.2-1.0 H PROTEIN (test code = 07D) 5.9 g/dL 6.4-8.2 L ALBUMIN (test code = 08D) 2.6 g/dL 3.5-4.8 L GLOBULIN (test code = GLB) 3.3 g/dL 1.5-3.8 ALB/GLOB (test code = AGRR) 0.8 1.0-2.6 L ALK PHOS (test code = 35A) 46 IU/L 42-121 AST (test code = 30A) 18 IU/L <=42 ALT (test code = 31A) 21 IU/L <=78 LIPASE [id number] 06:45:00 Test Item Value Reference Range Interpretation Comments LIPASE (test code = 60A) 42 IU/L 73-[address] ABDOMEN AND PELVIS W/O CONTRAST *OW*2017-09-14 02:57:29Critical results reported to Dr. Lobo by telephone at 2329 hours.XR CHEST 1 VIEW PORTABLE *OW* 2017-09-13 23:53:01STUDY: Chest radiographHISTORY: Abdominal pain.COMPARISON: CT abdomen/pelvis 09/13/17.TECHNIQUE: Frontal view of the chest.LOCATION: [id number]:The cardiac silhouette is unremarkable. Low lung volumesaccentuate the lowerlung bronchial and vascular structures, limiting evaluation. There is nopleural effusion, pneumothorax or focal consolidation.No acute osseous abnormalities are identified. It is noted that the patient haspneumoperitoneum on the prior CT, which is not appreciable on this examination.IMPRESSION:No radiographic evidence for acute pulmonary abnormality, limited by low lungvolumes.CK MB i-STAT OW2017-09-13 23:33:00 Test Item Value Reference Range Interpretation Comments CKMB (test code = A49) 1.1 ng/mL <=3.6 CHEM8+ i-STAT OW2017-09-13 23:26:00 Test Item Value Reference Range Interpretation Comments SODIUM (test code = XUAN) 141 mmol/L 138-146 POTASSIUM (test code = KI) 4.5 mmol/L 3.5-4.9 CHLORIDE (test code = CLI) 105 mmol/L 98-109 CA IONIZED (test code = ICAI) 1.11 mmol/L 1.12-1.32 L GLUCOSE (test code = GLUI) 159 mg/dL 75-100 H TCO2 (test code = TCO2) 27 mmol/L 24-29 BUN (test code = BUN1) 15 mg/dL 8-26 CREATININE (test code = CREAI) 0.9 mg/dL 0.6-1.3 ANION GAP (test code = GANG) 15.0 mmol/L CBC (INCLUDES AUTOMATED DIFFERENTIAL) *2017-09-13 23:22:00 Test Item Value Reference Range Interpretation Comments WBC (test code = WBC) 7.9 10\S\3/uL 4.5-11.0 RBC (test code = RBC) 5.55 10\S\6/uL 4.20-5.60 HGB (test code = HBG) 17.8 g/dL 12.0-15.5 H HCT (test code = HCT) 53.8 % 35.0-44.0 H MCV (test code = MCV) 97.0 fL 81.0-99.0 MCH (test code = MCH) 32.1 pg 27.0-31.0 H MCHC (test code = MCHC) 33.1 g/dL 32.0-36.0 RDW (test code = RDW) 13.3 % 11.5-14.5 PLT (test code = PLT) 205 10\S\3/uL 130-400 MPV (test code = MPV) 8.6 fL 9.4-12.4 L NEUTROP # (test code = NE#) 5.6 10\S\3/uL 1.6-8.0 LYMPH # (test code = LY#) 1.8 10\S\3/uL 1.1-3.5 MID # (test code = GMID#) 0.5 10\S\3/uL 0.0-1.1 GRA % (test code = GRA%) 70.6 % 35.0-73.0 LYMPH % (test code = GLY%) 22.9 % 20.0-55.0 MID % (test code = GMID%) 6.5 % 0.0-10.0 PROTHROMBIN TIME i-STAT OW2017-09-13 23:22:00 Test Item Value Reference Range Interpretation Comments PT (test code = 12.0 s 10.0-13.0 PT1) INR (test code = 1.0 INR) INRH (test code = SUGGESTED INRH) THERAPEUTIC RANGE FOR INR: 2.5 - 3.5 For Patients with Prosthetic Valves or Patients with recurrent Thromboembolic Events 2.0 - 3.0 For Most Other Applications
[2021-08-14 10:03] LABS: Absolute Lymphocytes (CBC) 1.3 K/uL (0.7-4.9); Hematocrit 27.6 % (36.0-45.0); Lymphocytes % 8.5 % (15.3-44.8); MPV 7.8 fL (7.6-11.3); RBC Red Blood Cell Count 2.97 M/uL (3.86-4.86)
[2021-08-14 10:17] LABS: Protime INR 2.22
[2021-08-14 10:55] LABS: Potassium 4.2 mmol/L (3.5-5.1)
[2021-08-14] MEDS ORDERED: FENTANYL CITR 100 MCG/2 ML ONE ×2 (12:35→17:10)
--- NOTE | 2021-08-14 13:05 | RAD REPORT ---
EXAM DESCRIPTION: RAD - Foot Right 3 View - 08/14/2021 12:38 pm CLINICAL HISTORY: Right foot pain FINDINGS: No fracture or dislocation is seen Large plantar calcaneal spur. Hallux valgus deformity
--- NOTE | 2021-08-14 13:16 | RAD REPORT ---
EXAM DESCRIPTION: US - Lower Extremity Artery Uni Ltd - 08/14/2021 1:02 pm CLINICAL HISTORY: Leg pain COMPARISON: None FINDINGS: Right superficial femoral arterial stent in place. 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
[2021-08-14] MEDS ORDERED: NA CHLORIDE 0.9% 500 ML ONE (13:48)
--- NOTE | 2021-08-14 14:08 | EDPHYS ---
Physician Documentation [facility] Name: Ara Vernon Age: 65 yrs Sex: Female : 1955 Arrival Date: 08/14/2021 Time: 09:20 Bed 5 Private MD: ED Physician Karen Ornelas HPI: 08/14 09:39 This 65 yrs old Black Female presents to ER via EMS with complaints of Right foot pain. pm1 09:39 The patient presents with pain, discoloration of right toes. The complaints affect the pm1 Right foot. Context: Patient reports onset of toe discoloration since surgery two weeks ago. Patient with DVT to right leg and had surgical intervention to right leg, medial aspect of right proximal lower leg and dorsum of right foot. Onset: The symptoms/episode began/occurred 2 week(s) ago. Modifying factors: The symptoms are alleviated by nothing. the symptoms are aggravated by nothing. Associated signs and symptoms: Pertinent negatives calf tenderness, fever. Treatment prior to arrival includes: no previous treatment. Severity of symptoms: in the emergency department the symptoms are unchanged. Per detention report, patient with DVT 2 weeks ago with surgical intervention. Unaware of hospital where surgery performed and no details of surgery. Patient sent to the ER due to pain and discoloration present to right toes. Historical: - Allergies: 09:20 Aspirin; aa5 09:20 tramadol; aa5 - PMHx: 09:20 Anxiety; Chronic Embolism and Thrombosis of vein; GERD; Pneumonia; CHF; Chronic pain; aa5 Depressive disorder; Hypertensive disorder; PVD; - Immunization history:: Adult Immunizations unknown. - Social history:: Smoking status: Patient/guardian denies using tobacco. ROS: 09:39 Constitutional: Negative for fever, chills, and weight loss, Cardiovascular: Negative pm1 for chest pain, palpitations, and edema, Respiratory: Negative for shortness of breath, cough, wheezing, and pleuritic chest pain, Abdomen/GI: Negative for abdominal pain, nausea, vomiting, diarrhea, and constipation, Back: Negative for injury and pain. 09:39 Neuro: Negative for headache, weakness, numbness, tingling, and seizure. 09:39 MS/extremity: Positive for pain, of the right foot and medial aspect of right calf, Negative for decreased range of motion, deformity. 09:39 Skin: Positive for discoloration, of the right first toe, right second toe, right third toe, right fourth toe and right fifth toe. 09:39 All other systems are negative. Exam: 09:39 Constitutional: This is a well developed, well nourished patient who is awake, alert, pm1 and in no acute distress. Head/Face: Normocephalic, atraumatic. 09:39 Back: No spinal tenderness. No costovertebral tenderness. Full range of motion. 09:39 Eyes: Exam is negative for acute changes, Extraocular movements: no acute changes, Conjunctiva: no acute changes, Sclera: no acute changes, icterus, is not appreciated. 09:39 ENT: Exam is negative for acute changes, Mouth: no acute changes, Lips: normal, moist, Oral mucosa: normal, pink and intact, moist. 09:39 Cardiovascular: Exam negative for acute changes, Rate: normal, Rhythm: regular, Pulses: no pulse deficits are appreciated. 09:39 Respiratory: Exam negative for acute changes, respiratory distress, shortness of breath, Breath sounds: are clear throughout. 09:39 Abdomen/GI: Palpation: abdomen is soft and non-tender, in all quadrants. 09:39 Musculoskeletal/extremity: Extremities: grossly normal except: findings as noted on skin examination of right foot. 09:39 Skin: Appearance: normal except for affected area, Color: Black coloration palmar aspect of all right toes , Temperature: cool, to all toes of right foot, Wound recheck: Suture laceration closure: the wound is healing well, the edges are well approximated, no evidence of dehiscence, no drainage, no erythema, no swelling, to right dorsal aspect of foot. Surgical incision to right proximal medial calf, the edges are well approximated, no evidence of dehiscence, no drainage no erythema no swelling, small area of abrasion at proximal edge. 09:39 Neuro: Exam negative for acute changes, Orientation: is normal, Mentation: is normal, Motor: moves all fours. Vital Signs: 09:20 BP 113 / 54; Pulse 72; Resp 18 S; Temp 97.6(O); Pulse Ox 98% on R/A; Weight 67.13 kg aa5 (R); Height 5 ft. 6 in. (167.64 cm) (R); Pain 10/10; 11:00 BP 99 / 59; Pulse 70; Resp 18 S; Pulse Ox 98% on R/A; aa5 12:21 BP 99 / 65; Pulse 67; Resp 16 S; Pulse Ox 99% on R/A; aa5 13:00 BP 107 / 73; Pulse 68; Resp 18 S; Pulse Ox 100% on R/A; aa5 14:00 BP 148 / 70; Pulse 64; Resp 16 S; Pulse Ox 100% on R/A; aa5 15:30 BP 141 / 74; Pulse 70; Resp 16 S; Temp 98.0(TE); Pulse Ox 100% on R/A; aa5 16:30 BP 148 / 72; Pulse 64; Resp 18 S; Pulse Ox 100% on R/A; aa5 09:20 Body Mass Index 23.89 (67.13 kg, 167.64 cm) aa5 MDM: 09:36 Patient medically screened. pm1 09:39 Data reviewed: vital signs. Data interpreted: Pulse oximetry: on room air is 98 %. pm1 Interpretation: normal. 10:33 ED course: Pending U/S test. U/S interventional tech and will arrive at 1200. pm1 13:58 Counseling: I had a detailed discussion with the patient and/or guardian regarding: the pm1 historical points, exam findings, and any diagnostic results supporting the discharge/admit diagnosis, lab results, radiology results, the need to transfer to another facility, [facility] does not immediately have the required specialist. 15:20 Physician consultation: Vascular surgeon Martha regarding regarding transfer, consult, pm1 patient's condition, Discussed with Dr. Thomas ultrasound results, lab findings and physical presentation of patient's right foot. Dr. Shafer notes patient very well, he performed the surgery, thrombectomy 2 weeks ago and followed her in the hospital during her 2-week stay at [facility]. Her current physical presentation is no different than her presentation in the hospital. There is no surgical intervention that can improve her current prognosis of her vascular disease. Patient with occluded dorsalis pedis artery that is not able to be surgically improved and she also had monophasic flow as the ultrasound here today. She does not require transfer to the hospital and he has a follow-up appointment with her next week. Discussed elevated white count, and he reported that is her baseline. If no signs of cellulitis or abscess no need for any antibiotic therapy. He reported to the family on multiple occasions the prognosis of her foot which will be eventual amputation at midfoot or below the knee. Requested that I discuss with the patient and family again her prognosis and eventual plan of care. 16:25 Physician consultation:. ED course: Discussed with detention nurse my discussion pm1 with Dr. Thomas. Patient with no changes to her current presentation from her hospitalization at [facility]. No need for transfer and patient can be returned to detention. Patient has follow up with Dr. Thomas next week. 08/14 09:39 Order name: CBC with Diff; Complete Time: 10:33 pm1 08/14 09:39 Order name: PT-INR; Complete Time: 10:33 pm1 08/14 09:39 Order name: Ptt, Activated; Complete Time: 10:33 pm1 08/14 09:39 Order name: BMP; Complete Time: 10:59 pm1 08/14 09:39 Order name: Lower Extremity Artery Uni Ltd US; Complete Time: 13:18 pm1 08/14 14:15 Order name: SARS-COV-2 RT PCR (Document "Date of Onset" if Symptomatic); Complete Time: eb 16:06 08/14 09:39 Order name: IV Saline Lock; Complete Time: 09:57 pm1 08/14 11:31 Order name: Foot Right 3 View XRAY; Complete Time: 13:15 pm1 Administered Medications: 12:33 Drug: fentaNYL (PF) 25 mcg Route: IVP; Site: left forearm; aa5 12:45 Follow up: Response: No adverse reaction aa5 13:45 Drug: NS 0.9% 500 ml Route: IV; Rate: bolus; Site: left forearm; jl7 15:00 Follow up: IV Status: Completed infusion; IV Intake: 500ml aa5 17:10 Drug: fentaNYL (PF) 25 mcg Route: IVP; Site: left forearm; aa5 17:13 Follow up: Response: No adverse reaction aa5 Disposition Summary: 08/14/21 16:05 Discharge Ordered Location: Home pm1 Problem: new(08/14/21 16:05) pm1 Symptoms: have improved(08/14/21 16:05) pm1 Condition: Stable(08/14/21 16:05) pm1 Diagnosis - Occulsion of right dorsalis pedis artery pm1 Followup: pm1 - With: Emergency Department - When: As needed - Reason: Worsening of condition Followup: pm1 - With: Private Physician - When: 2 - 3 days - Reason: Recheck today's complaints, Continuance of care, Re-evaluation by your physician Discharge Instructions: - Discharge Summary Sheet iw Forms: - SBAR form iw - Medication Reconciliation Form pm1 - Thank You Letter pm1 - Antibiotic Education pm1 - Prescription Opioid Use pm1 Signatures: Dispatcher [employer] EDMS Francisca Zacarias, RN RN aa5 Tucker Medina NP LOCAL [employer]IVER pm1 Isha Ledesma RN RN jl7 Corrections: (The following items were deleted from the chart) 15:31 14:07 MD pm1 pm1 15:31 14:07 Other Acute Care Facility pm1 pm1 15:31 14:07 Higher level of care pm1 pm1 15:31 14:07 Stable pm1 pm1 15:31 14:07 new pm1 pm1 15:31 14:07 are unchanged pm1 pm1 15:31 14:07 Occlusion of right dorsalis pedis artery pm1 pm1 15:31 14:07 Gangrene right great toe and all right lesser toes pm1 pm1 19:21 09:39 Constitutional: This is a well developed, well nourished patient who is awake, pm1 alert, and in no acute distress. Head/Face: Normocephalic, atraumatic. pm1 19:21 09:39 Eyes: Extraocular movements: intact throughout, Conjunctiva: no acute changes, no pm1 injection, Sclera: no acute changes, icterus, is not appreciated, pm1 19:21 09:39 Cardiovascular: Exam negative for acute changes, Rate: normal, Rhythm: regular, pm1 Pulses: no pulse deficits are appreciated, pm1 19:21 09:39 Respiratory: Exam negative for acute changes, respiratory distress, shortness of pm1 breath, Breath sounds: are clear throughout, pm1 19:21 09:39 Skin: Appearance: normal except for affected area, injury, laceration(s), the pm1 wound is approximately 1 cm(s), of the left supraorbital ridge, pm1 19:21 09:39 Neuro: Exam negative for acute changes, Orientation: is normal, Mentation: is pm1 normal, Motor: is normal, moves all fours, pm1
--- NOTE | 2021-08-14 14:08 | ER ---
Nurse's Notes [facility] Name: Ara Vernon Age: 65 yrs Sex: Female : 1955 Arrival Date: 08/14/2021 Time: 09:20 Bed 5 Private MD: Diagnosis: Occulsion of right dorsalis pedis artery Presentation: 08/14 09:20 Chief complaint: EMS states: pt had surgery to right leg for thrombus approximately 2 aa5 weeks ago and pt was d/c' d to [facility] on Sunday and has been on Xarelto. Detention staff was concerned about foot discoloration and pt's pain level. 09:20 Coronavirus screen: At this time, the client does not indicate any symptoms associated aa5 with coronavirus-19. Ebola Screen: No symptoms or risks identified at this time. Initial Sepsis Screen: Does the patient meet any 2 criteria? No. Patient's initial sepsis screen is negative. Does the patient have a suspected source of infection? No. Patient's initial sepsis screen is negative. Risk Assessment: Do you want to hurt yourself or someone else? Patient reports no desire to harm self or others. 09:20 Acuity: BRIAN 3 aa5 09:20 Method Of Arrival: EMS: [facility] aa5 09:20 Onset of symptoms was August 14, 2021. aa5 Historical: - Allergies: 09:20 Aspirin; aa5 09:20 tramadol; aa5 - PMHx: 09:20 Anxiety; Chronic Embolism and Thrombosis of vein; GERD; Pneumonia; CHF; Chronic pain; aa5 Depressive disorder; Hypertensive disorder; PVD; - Immunization history:: Adult Immunizations unknown. - Social history:: Smoking status: Patient/guardian denies using tobacco. Screenin:00 Abuse screen: Denies threats or abuse. Nutritional screening: No deficits noted. aa5 Tuberculosis screening: No symptoms or risk factors identified. Fall Risk IV access (20 points). Total Drake Fall Scale indicates No Risk (0-24 pts). Assessment: 09:20 General: Appears comfortable, Behavior is calm, cooperative. Pain: Complains of pain in aa5 right lower leg Pain currently is 10 out of 10 on a pain scale. Neuro: Level of Consciousness is awake, alert, obeys commands, Oriented to person, place, time, situation. Cardiovascular: Patient's skin is warm and dry. Respiratory: Airway is patent Respiratory effort is even, unlabored, Respiratory pattern is regular, symmetrical. GI: No signs and/or symptoms were reported involving the gastrointestinal system. : No signs and/or symptoms were reported regarding the genitourinary system. EENT: No signs and/or symptoms were reported regarding the EENT system. Derm: Skin is dry, Skin is normal, Skin temperature is warm incision repair noted with sutures to top of right foot measuring approximately 3in long, no signs of infection noted to site, bruising that is dark purple noted to top of right foot. Incision scar noted to right calf area with small open wound that is approximately quater sized along the incision scar with serosanguineous drainage noted, no signs of infection noted to site. Tip of right toes are black in color, pt is able to move toes and foot, reports no sensation to foot when touched. Right foot warm to touch. Musculoskeletal: Range of motion: intact in all extremities. 09:40 Reassessment: Pt currently sitting up in bed watching TV, appears comfortable. . aa5 10:00 Reassessment: Pt resting in bed with eyes closed, respirations even and unlabored. aa5 Appears comfortable. . 11:00 Reassessment: Pt resting in bed with eyes closed, respirations even and unlabored, skin aa5 is normal/warm/dry. . 12:21 Reassessment: Pt requesting pain medication. US at bedside now. [employer] SE[employer] was notified of need aa5 for pain medication and also notified of BP 99/65 (see orders). . 13:30 Reassessment: Pt sitting up in bed watching TV. Pt's family at bedside. . aa5 15:00 Reassessment: Pt cleaned of urinary incontinence, clean brief applied. New gown aa5 applied. . 15:00 Neuro: Level of Consciousness is awake, alert, obeys commands, Oriented to person, aa5 place, time, situation. Respiratory: Airway is patent Respiratory effort is even, unlabored, Respiratory pattern is regular, symmetrical. Derm: Skin is dry, Skin is normal, Skin temperature is warm. 15:00 Reassessment: Awaiting approval for transfer to [facility] where surgery was aa5 completed. . 16:00 Reassessment: POC is pt will no longer be transferred upon [facility] speaking with pt's aa5 surgeon. . 16:14 Reassessment: Attempted to call report to [facility], sent to voice mail, aa5 left voice mail for nurse to call me back. . 16:41 Reassessment: Nurse from [place] has not returned call, 2nd unsuccessful attempt to [facility] call report made.. 17:10 Neuro: Level of Consciousness is awake, alert, obeys commands, Oriented to person, aa5 place, time, situation. Respiratory: Airway is patent Respiratory effort is even, unlabored, Respiratory pattern is regular, symmetrical. Derm: Skin is dry, Skin is normal, Skin temperature is warm. Vital Signs: 09:20 BP 113 / 54; Pulse 72; Resp 18 S; Temp 97.6(O); Pulse Ox 98% on R/A; Weight 67.13 kg aa5 (R); Height 5 ft. 6 in. (167.64 cm) (R); Pain 10/10; 11:00 BP 99 / 59; Pulse 70; Resp 18 S; Pulse Ox 98% on R/A; aa5 12:21 BP 99 / 65; Pulse 67; Resp 16 S; Pulse Ox 99% on R/A; aa5 13:00 BP 107 / 73; Pulse 68; Resp 18 S; Pulse Ox 100% on R/A; aa5 14:00 BP 148 / 70; Pulse 64; Resp 16 S; Pulse Ox 100% on R/A; aa5 15:30 BP 141 / 74; Pulse 70; Resp 16 S; Temp 98.0(TE); Pulse Ox 100% on R/A; aa5 16:30 BP 148 / 72; Pulse 64; Resp 18 S; Pulse Ox 100% on R/A; aa5 09:20 Body Mass Index 23.89 (67.13 kg, 167.64 cm) aa5 ED Course: 09:20 Patient arrived in ED. eb 09:20 Arm band placed on. aa5 09:20 Patient has correct armband on for positive identification. Bed in low position. Call aa5 light in reach. Side rails up X2. 09:21 Francisca Zacarias RN is Primary Nurse. aa5 09:25 Tucker Medina NP is PHCP. pm1 09:25 Karen Ornelas MD is Attending Physician. pm1 09:43 Triage completed. aa5 09:57 Ptt, Activated Sent. em1 09:57 BMP Sent. em1 09:57 PT-INR Sent. em1 09:57 CBC with Diff Sent. em1 09:57 Initial lab(s) drawn, by me, sent to lab. Inserted saline lock: 20 gauge in left em1 forearm, using aseptic technique. Blood collected. 12:40 Foot Right 3 View XRAY In Process Unspecified. EDMS 13:00 No provider procedures requiring assistance completed. aa5 13:04 Lower Extremity Artery Uni Ltd US In Process Unspecified. EDMS 14:45 initiated a transfer with Delmi from the [facility] Transfer Center/ at the request of the eb family. 15:[address] Melendez the vascular surgeon who is the patient's vascular surgeon with bro Ceballos Np for patient transfer consultation. 17:15 IV discontinued, intact, bleeding controlled, No redness/swelling at site. Pressure aa5 dressing applied. Administered Medications: 12:33 Drug: fentaNYL (PF) 25 mcg Route: IVP; Site: left forearm; aa5 12:45 Follow up: Response: No adverse reaction aa5 13:45 Drug: NS 0.9% 500 ml Route: IV; Rate: bolus; Site: left forearm; jl7 15:00 Follow up: IV Status: Completed infusion; IV Intake: 500ml aa5 17:10 Drug: fentaNYL (PF) 25 mcg Route: IVP; Site: left forearm; aa5 17:13 Follow up: Response: No adverse reaction aa5 Intake: 15:00 IV: 500ml; Total: 500ml. aa5 Outcome: 14:07 ER care complete, transfer ordered by MD. pm1 16:05 Discharge ordered by . pm1 17:05 Discharged to half-way. Report called to [facility], report given by aa5 [employer] SE[employer] to half-way nurse. 17:05 Condition: stable 17:05 Discharge instructions given to patient, Instructed on discharge instructions, follow up and referral plans. Demonstrated understanding of instructions, follow-up care. 17:15 Patient left the ED. aa5 Signatures: Dispatcher [employer] EDMS Marko Gomez em1 Francisca Zacarias, RN RN aa5 Tucker Medina, CAYLA [employer]OP[employer] SEWER pm1 Isha Ledesma RN RN jl7 Masters, Eli eb Corrections: (The following items were deleted from the chart) 17: 17:05 IV discontinued, intact, bleeding controlled, No redness/swelling at site. aa5 Pressure dressing applied, aa5 : 17: Patient left the ED. aa5 aa5 : 13:30 Reassessment: Pt sitting up in bed watching TV. Pt's family at bedside. . aa5 aa5
[2021-08-14 17:54] VITALS: O2SAT 100
[2021-08-14 17:57] VITALS: TEMP 98
[2021-08-14 17:59] VITALS: BP 148/72
== END 2021-08-14 17:21 | disposition home or self-care (01) ==
LOC: ER 09:19
DX: I70.201 Unspecified atherosclerosis of native arteries of extremities, right leg (principal); Z20.822 Contact with and (suspected) exposure to COVID-19; I10 Essential (primary) hypertension; I50.9 Heart failure, unspecified; Z88.5 Allergy status to narcotic agent; Z88.6 Allergy status to analgesic agent
CPT/HCPCS: 96361; 85025; 80048; 36415; 85610; 85730; 73630; 93926; 96374; 99284; U0003; J3010 ×2; J7040

== ENCOUNTER 2021-08-21 22:17 | Emergency (ER) | payer OTHER ==
--- OUTSIDE RECORDS SUMMARY | 2021-08-21 22:24 | XMS REPORT | Continuity of Care Document ---
:1955 Author Organization [facility] t Address [address] [place] [place] [address] Care Team Providers Name Role Phone [facility] Attending Clinician Unavailable Doreen Attending Clinician Unavailable DR LIZET Attending Clinician Unavailable MOHSEN Attending Clinician Unavailable DR Antony TRIPP Attending Clinician Unavailable DR HANK Attending Clinician Unavailable DR ESTEFANY Attending Clinician Unavailable DR Doreen WILKES Attending Clinician Unavailable Doreen Admitting Clinician Unavailable Izabella Martinez Admitting Clinician Unavailable DR LIZET Admitting Clinician Unavailable MOHSEN Admitting Clinician Unavailable DR Antony TRIPP Admitting Clinician Unavailable DR HANK Admitting Clinician Unavailable DR ESTEFANY Admitting Clinician Unavailable DR OPAL Admitting Clinician Unavailable Payers Payer Name Policy Type Policy Number Effective Date Expiration Date S [facility] [id number] 2020 2024 PLAN MEDICARE SNP 00:00:00 00:00:00 [place] [id number] 2016 2016 MEDICAID 00:00:00 00:00:00 STAR+PLUS [id number] 1959 00:00:00 [id number] 1959 00:00:00 Problems This patient has no known problems. Allergies, Adverse Reactions, Alerts Allergy Allergy Status Severity Reaction(s) Onset Inactive Treating Comm ents Source Name Type Date Date Clinician lisinopr DA Active U UNKNOWN [facility] 07[facility] Clear 00:00: [place] 00 [facility] aspirin DA Active U UNKNOWN [facility] 07-31 Clear 00:00: [place] 00 [facility] tramadol DA Active U UNKNOWN [facility] 07-31 Clear 00:00: [place] 00 [facility] Tramadol DA Active Unknown [facility] Aspirin DA Active Unknown [facility] Lisinopr DA Active Unknown [facility] Medications This patient has no known medications. Vital Signs Vital Name Observation Time Observation Value Comments Source Height 2021-07-27 09:20:00 165.1 CM Weight 2021-07-27 09:20:00 77.11 KG Height 2021-02-22 13:40:00 157.48 CM Weight 2021-02-22 13:40:00 70.76 KG Height 2020-08-26 06:23:00 170.18 CM Weight 2020-08-26 06:23:00 73.93 KG Procedures Procedure Date / Time Performed Performing Clinician Krupa antony [id number] 2021-08-03 00:00:00 AYADI [facility] [id number] 2021-08-03 00:00:00 [facility]11 [facility] [id number] 2021-08-03 00:00:00 [facility]11 [facility] [id number] 2021-08-03 00:00:00 [facility]11 [facility] [id number] 2021-08-03 00:00:00 [facility]11 [facility] [id number] 2021-08-03 00:00:00 [facility]11 [facility] [id number] 2021-08-03 00:00:00 AYADI [facility] [id number] 2021-08-03 00:00:00 [facility]11 [facility] [id number] 2021-08-03 00:00:00 [facility]11 [facility] [id number] 2021-08-03 00:00:00 [facility]11 [facility] [id number] 2021-08-03 00:00:00 [facility]11 [facility] [id number] 2021-08-03 00:00:00 [facility]11 [facility] [id number] 2021-08-02 00:00:00 AYADI [facility] [id number] 2021-08-02 00:00:00 AYADI [facility] [id number] 2021-08-02 00:00:00 [facility]YADI [facility] [id number] 2021-08-02 00:00:00 AYADI [facility] [id number] 2021-08-02 00:00:00 AYADI [facility] [id number] 2021-08-02 00:00:00 AYADI [facility] [id number] 2021-08-01 00:00:00 [facility]YADI [facility] [id number] 2021-08-01 00:00:00 [facility]YADI [facility] [id number] 2021-07-31 00:00:00 [facility]YADI [facility] [id number] 2021-07-31 00:00:00 AYADI [facility] [id number] 2021-07-31 00:00:00 AYADI [facility] [id number] 2021-07-31 00:00:00 AYADI [facility] [id number] 2021-07-31 00:00:00 AYADI [facility] [id number] 2021-07-31 00:00:00 AYADI [facility] [id number] 2021-07-31 00:00:00 AYADI [facility] [id number] 2021-07-31 00:00:00 AYADI [facility] [id number] 2021-07-31 00:00:00 AYADI [facility] [id number] 2021-07-31 00:00:00 AYADI [facility] [id number] 2021-07-31 00:00:00 AYADI [facility] [id number] 2021-07-31 00:00:00 AYADI [facility] Encounters Start End Encounter Admission Attending Care Care Encounter Source Date/Time Date/Time Type Type Clinicians Facility Department ID 2020-09-29 Outpatient [facility] [id number] [place] 01:03:26 [facility] 2020-09-28 [facility] [id number] [place] 01:03:23 [facility] 2020-09-26 [facility] [id number] [place] 01:03:59 [facility] 2021-07-31 2021-08-12 Inpatient EL Doreen HCAPM INTE [id number] [facility] 01:04:00 17:25:00 Nkoli [id number] [facility] [place] 2021-07-31 2021-08-12 Inpatient EL Doreen HCAPM INTE [id number] [facility] 01:04:00 17:25:00 Nkoli 20 [facility] [place] 2021-07-31 2021-07-31 Outpatient CLARE Logan HCACL LABO [id number] [facility] 07:33:00 07:33:00 Nkoli [facility] 2021-07-27 2021-07-30 Inpatient E LIZET [facility] [id number] [facility] 12:19:00 21:29:00 [facility] 2021-04-27 2021-04-27 Outpatient FERGUSON_LILLY [facility] [address]09 [place] 05:54:00 05:54:00 HN 0126 [facility] 2021-02-22 2021-02-22 Outpatient E JOSEE [facility] ECC [id number] [facility] 13:37:00 16:19:00 [facility] [place] 2020-11-19 2020-11-19 Outpatient FERGUSON_LILLY [facility] [address] [place] 02:39:00 02:39:00 HN 0820 [facility] 2017-10-04 2017-10-04 Outpatient E MARE ALLISON [facility] [id number] [facility] 10:52:00 12:37:00 [facility] [place] 2017-09-13 2017-09-21 Inpatient E CHUNG, [facility] [id number] [facility] 23:35:00 16:50:00 [facility] Results Test Description Test Time Test Comments Results Result Comments Source COVID 19 INHOUSE [facility] 2021-08-12 13:20:00 Test Item Value Reference Range Interpretation Comme nts COVID 19 INHOUSE AG (test code = NEGATIVE Negative Per coating operator, negative [id number]) results should be treated aspresumptive a nd, [...] nd symptoms consistent with COVID-19. CBC W/AUTO [id number] 07:52:00 Test Item Value Reference Range Interpretation [...] NT WITH AUTO DIFFERENTI AL. COMPREHENSIVE METABOLIC [id number] 10:17:00 Test Item Value Reference Range Interpretation [...] TOTAL (test code = ALKP) CBC W/AUTO [id number] 06:29:00 Test Item Value Reference Range Interpretation [...] NO DIFF/SCN CRITERIA = MDIFF) CBC W/AUTO [id number] 07:34:00 Test Item Value Reference Range Interpretation [...] NO DIFF/SCN CRITERIA = MDIFF) CBC W/AUTO [id number] 05:17:00 Test Item Value Reference Range Interpretation [...] NO DIFF/SCN CRITERIA = MDIFF) CBC W/AUTO [id number] 06:57:00 Test Item Value Reference Range Interpretation [...] NT WITH AUTO DIFFERENTI AL. THROMBOPLASTIN TIME [id number] 06:02:00 Test Item Value Reference Range Interpretation Comments THROMBOPLASTIN TIME PARTIAL 35.2 SECONDS 26-35 H (test code = PTT) CBC W/AUTO [id number] 08:17:00 Test Item Value Reference Range Interpretation [...] NO DIFF/SCN CRITERIA = MDIFF) BASIC METABOLIC [id number] 06:46:00 Test Item Value Reference Range Interpretation [...] CA) 8.7 MG/DL 8.5-10.1 N THROMBOPLASTIN TIME [id number] 06:44:00 Test Item Value Reference Range Interpretation Comments THROMBOPLASTIN TIME PARTIAL 32.9 SECONDS 26-35 N (test code = PTT) CBC W/AUTO [id number] 23:06:00 Test Item Value Reference Range Interpretation [...] code YES DIFF/SCN CRITERIA = MDIFF) WBC [id number] 23:06:00 Test Item Value Reference Range Interpretation [...] (test NORMAL code = PLTMORPH) THROMBOPLASTIN TIME [id number] 14:56:00 Test Item Value Reference Range Interpretation Comments THROMBOPLASTIN TIME PARTIAL 39.7 SECONDS 26-35 H (test code = PTT) BASIC METABOLIC [id number] 05:54:00 Test Item Value Reference Range Interpretation [...] CA) 7.9 MG/DL 8.5-10.1 L THROMBOPLASTIN TIME [id number] 05:48:00 Test Item Value Reference Range Interpretation Comments THROMBOPLASTIN TIME PARTIAL 40.7 SECONDS 26-35 H (test code = PTT) THROMBOPLASTIN TIME [id number] 23:23:00 Test Item Value Reference Range Interpretation Comments THROMBOPLASTIN TIME PARTIAL 50.9 SECONDS 26-35 H (test code = PTT) THROMBOPLASTIN TIME [id number] 16:51:00 Test Item Value Reference Range Interpretation Comments THROMBOPLASTIN TIME PARTIAL 45.1 SECONDS 26-35 H (test code = PTT) COAGULATION TIME [id number] 10:50:00 Test Item Value Reference Range Interpretation Comments COAGULATION TIME ACTIVATED (test 267 SECistat 74-125 H code = ACT) COAGULATION TIME [id number] 10:50:00 Test Item Value Reference Range Interpretation Comments COAGULATION TIME ACTIVATED (test 258 SECistat 74-125 H code = ACT) COAGULATION TIME [id number] 10:50:00 Test Item Value Reference Range Interpretation Comments COAGULATION TIME ACTIVATED (test 160 SECistat 74-125 H code = ACT) CBC W/AUTO [id number] 10:26:00 Test Item Value Reference Range Interpretation [...] CRITERIA = MDIFF) - XR FLUOROSCOPY 0-60 [id number] 08:25:00 [facility] AZ[facility]: EMEKA JUSTIN : 1955 Sex: F Name: EMEKA JUSTIN [place] : 1955 Age/S: 65 / F [id number] [facility] [place] Unit #: [id number] Loc: [place] [address] Phys: Yesy Logan MD Acct: [id number] Dis Date: Status: ADM IN PHONE #: [phone] Exam Date: 08/03/20211814 FAX #: Reason: THROMBECTOMY EXAMS: CPT: [id number] XR FLUOROSCOPY 0-60 MIN 94659 Fluoro Time: 161 SEC DAP (Gy m2): [...] PAGE 1 Signed Report Name: EMEKA JUSTIN [place] : 1955 Age/S: 65 / F [address] [place] Unit #: [id number] Loc: [place] [address] Phys: Yesy Logan MD Acct: [id number] Dis Date: Status: ADM IN PHONE #: [phone] Exam Date: 08/03/2021 1815 FAX #: Reason: THROMBECTOMY EXAMS: CPT: [id number] XR FLUOROSCOPY 0-60 MIN 59953 Fluoro Time: 161 SEC DAP (Gy m2): Air Kerma (mGy): <Continued> Technologist: Delfina Barone RT(R)(CT) Trnscb Date/Time: 08/04/2021 (824) EsvinAG38 Orig Print D/T: S: 08/04/2021 (7941) PAGE 2 SignedReportBASIC METABOLIC [id number] 06:26:00 Test Item Value Reference Range Interpretation [...] CA) 8.5 MG/DL 8.5-10.1 N THROMBOPLASTIN TIME [id number] 06:22:00 Test Item Value Reference Range Interpretation Comments THROMBOPLASTIN TIME PARTIAL 43.7 SECONDS 26-35 H (test code = PTT) THROMBOPLASTIN TIME [id number] 23:20:00 Test Item Value Reference Range Interpretation Comments THROMBOPLASTIN TIME PARTIAL 116.7 SECONDS 26-35 HH (test code = PTT) CBC W/AUTO [id number] 22:03:00 Test Item Value Reference Range Interpretation [...] DONE WITHIN THE LAST 24 HOURSTHROMBOPLASTIN TIME [id number] 12:20:00 Test Item Value Reference Range Interpretation Comments THROMBOPLASTIN TIME PARTIAL 68.7 SECONDS 26-35 H (test code = PTT) CBC W/AUTO [id number] 08:45:00 Test Item Value Reference Range Interpretation [...] NO DIFF/SCN CRITERIA = MDIFF) BASIC METABOLIC [id number] 06:35:00 Test Item Value Reference Range Interpretation [...] CA) 9.2 MG/DL 8.5-10.1 N THROMBOPLASTIN TIME [id number] 06:27:00 Test Item Value Reference Range Interpretation Comments THROMBOPLASTIN TIME PARTIAL 64.9 SECONDS 26-35 H (test code = PTT) THROMBOPLASTIN TIME [id number] 01:04:00 Test Item Value Reference Range Interpretation Comments THROMBOPLASTIN TIME PARTIAL 62.9 SECONDS 26-35 H (test code = PTT) - XR CHEST 1 [id number] 21:09:00 [facility] : 1955 Sex: F Name: EMEKA JUSTIN [facility] : 1955 Age/S: 65 / F [id number] [place] [address] Unit #: [id number] Loc: [place] [address] Phys: Glenny Alberts MD Acct: [id number] Dis Date: Status: ADM IN PHONE #: [phone] Exam Date: 08/02/20212054 FAX #: Reason: Post Op EXAMS: CPT: [id number] XR CHEST 1 V 25907 Fluoro Time: DAP (Gy m2): Air Kerma (mGy): HISTORY: Shortness of breath TECHNIQUE: AP chest x-ray COMPARISON: 07/31/21 FINDINGS: Low lung volumes. No pneumothorax. No airspace consolidation or pleural effusion. Elevated r ight hemidiaphragm. Mild cardiomegaly. Mediastinal silhouette is unremarkable. Thoracic spondylosis. IMPRESSION: No radiographic evidence of acute cardiopulmonary process. LOCATION: [facility] Reported and signed by:HERACLIO GAMBOA DO CC: Glenny Alberts MD; Yesy Logan MD; Abel Martinez MD PAGE 1 Signed Report Name: EMEKA JUSTIN [place] : 1955 Age/S: 65 / F [id number] [place] [address] Unit#: [id number] Loc: [place] [address] Phys: Glenny Alberts MD Acct: [id number] Dis Date: Status: ADM IN PHONE #: [phone] Exam Date: 08/02/20212054 FAX #: Reason: Post Op EXAMS: CPT: [id number] XR CHEST 1 V 27251 Fluoro Time: DAP (Gy m2): Air Kerma (mGy): <Continued> Technologist: Lebron Alvarado RT(R) Trnscb Date/Time: 08/02/2021 (2108) EsvinLDP1 Orig Print D/T: S: 08/02/2021 (2111) PAGE 2 Signed [id number] 19:58:00 Test Item Value Reference Range Interpretation Comments HEMATOCRIT (test code = HCT) 39.2 % 31.5-44.1 N PLATELET [id number] 19:58:00 Test Item Value Reference Range Interpretation Comments PLATELET COUNT (test code = PLT) 167 K/mm3 150-450 N THROMBOPLASTIN TIME [id number] 19:53:00 Test Item Value Reference Range Interpretation Comments THROMBOPLASTIN TIME PARTIAL 38.9 SECONDS 26-35 H (test code = PTT) COMPREHENSIVE METABOLIC [id number] 13:21:00 Test Item Value Reference Range Interpretation [...] TOTAL (test code = ALKP) THROMBOPLASTIN TIME [id number] 12:49:00 Test Item Value Reference Range Interpretation Comments THROMBOPLASTIN TIME PARTIAL 33.7 SECONDS 26-35 N (test code = PTT) [id number] 12:49:00 Test Item Value Reference Range Interpretation Comments FIBRINOGEN (test code = FIB) 612 mg/dL 185-453 H CBC W/AUTO [id number] 10:38:00 Test Item Value Reference Range Interpretation [...] Comment: q6hr labs while lysis ongoingCBC W/AUTO [id number] 05:57:00 Test Item Value Reference Range Interpretation [...] NT WITH AUTO DIFFERENTI AL. THROMBOPLASTIN TIME [id number] 05:19:00 Test Item Value Reference Range Interpretation Comments THROMBOPLASTIN TIME PARTIAL 36.2 SECONDS 26-35 H (test code = PTT) [id number] 05:19:00 Test Item Value Reference Range Interpretation Comments FIBRINOGEN (test code = FIB) 743 mg/dL 185-453 H BASIC METABOLIC [id number] 05:17:00 Test Item Value Reference Range Interpretation [...] CA) 9.1 MG/DL 8.5-10.1 N CBC W/AUTO [id number] 04:41:00 Test Item Value Reference Range Interpretation [...] DIFF REQUIRED NO DIFF/SCN CRITERIA SLIDE R LARISSAIEW (test code = MDIFF) CONSISTA NT WITH AUTO DIFFERENTI AL. THROMBOPLASTIN TIME [id number] 02:21:00 Test Item Value Reference Range Interpretation Comments THROMBOPLASTIN TIME PARTIAL 34.9 SECONDS 26-35 N (test code = PTT) [id number] 02:21:00 Test Item Value Reference Range Interpretation Comments FIBRINOGEN (test code = FIB) 634 mg/dL 185-453 H CBC W/AUTO [id number] 23:38:00 Test Item Value Reference Interpretation Comments Range WHITE BLOOD CELL TEST NOT 3.5-11.0 H DUPLICATEPr eviously (test code = WBC) PERFORMED reported r esult: 12.0 K/mm3 K/eh7Uearvr by: Gaye on 08/01/21:2330~~ ~~~~~~~~~ ~~~~~~~~~~~~~~~ ~~~~~~~~~ ~~~~~ Thi s is a CORRECTED REPOR T RED BLOOD CELL TEST NOT 4.70-6.10 L Previously re ported (test code = RBC) PERFORMED result: 4. 31 M/lq2Cmtlhe M/mm3 by: AnaSI7 o n 08/01/21:2331~~ ~~~~~~~~~ ~~~~~~~~~~~~~~~ ~~~~~~~~~ ~~~~~ Thi s is a CORRECTED REPOR T HEMOGLOBIN (test TEST NOT 10.4-14.9 N Previously reported code = HGB) PERFORMED G/DL result: 13.7 G/DLEdited by: AnaSI7 o n 08/01/21:2331~~ ~~~~~~~~~ ~~~~~~~~~~~~~~~ [...] PERFORMED Fl result: 95 .1 FlEdited by: Esteban7 o n 08/01/21:2331~~ ~~~~~~~~~ ~~~~~~~~~~~~~~~ ~~~~~~~~~ ~~~~~ Thi s is a CORRECTED REPOR T MEAN CELL HGB TEST NOT 27.0-34.2 N Previously rep orted (test code = MCH) PERFORMED pg result: 31 .8 pgEdited by: Esteban7 o n 08/01/21:2331~~ ~~~~~~~~~ ~~~~~~~~~~~~~~~ ~~~~~~~~~ ~~~~~ [...] code = PLT) PERFORMED result: 17 5 K/ux2Xchjtr K/mm3 by: Esteban7 o n 08/01/21:2335~~ ~~~~~~~~~ ~~~~~~~~~~~~~~~ ~~~~~~~~~ ~~~~~ Thi s is a CORRECTED REPOR T MEAN PLATELET TEST NOT 7.0-10.5 H Previously rep orted VOLUME (test code PERFORMED fL result: 11 .90 fLEdited = MPV) by: Gaye o n 08/01/21:2335~~ ~~~~~~~~~ ~~~~~~~~~~~~~~~ ~~~~~~~~~ ~~~~~ Thi s is a CORRECTED REPOR T NEUTROPHIL % (test TEST NOT 40-76 H Previousl y reported code = NT%) PERFORMED % result: 80.5 %E dited by: Gaye on 08/01/21:2335~~ ~~~~~~~~~ ~~~~~~~~~~~~~~~ ~~~~~~~~~ ~~~~~ Thi s is a CORRECTED REPOR T IMMATURE TEST NOT 0.0-5.0 H Previously repo rted GRANULOCYTE % PERFORMED % result: 7.3 %E dited by: (test code = IG%) [email or web address] on 08/01/21:2335~~ ~~~~~~~~~ ~~~~~~~~~~~~~~~ ~~~~~~~~~ ~~~~~ Thi s is a CORRECTED REPOR T LYMPHOCYTE % (test TEST NOT 20.5-51.1 L Previousl y reported code = LY%) PERFORMED % result: 11.3 %E dited by: GiovanyParishFAITHVini on 08/01/21:2335~~ ~~~~~~~~~ ~~~~~~~~~~~~~~~ ~~~~~~~~~ ~~~~~ Thi s is a CORRECTED REPOR T MONOCYTE % (test TEST NOT 1.7-9.3 L Previously reported code = MO%) PERFORMED % result: 0.3 %Ed ited by: Giovany.FAITHVini on 08/01/21:2335~~ ~~~~~~~~~ ~~~~~~~~~~~~~~~ ~~~~~~~~~ ~~~~~ Thi s is a CORRECTED REPOR T EOSINOPHIL % (test TEST NOT 0.0-6.0 N Previousl y reported code = EO%) PERFORMED % result: 0.2 %Ed ited by: Mela.FAITHVini on 08/01/21:2335~~ ~~~~~~~~~ ~~~~~~~~~~~~~~~ ~~~~~~~~~ ~~~~~ Thi s is a CORRECTED REPOR T BASOPHIL % (test TEST NOT 0.0-2.0 N Previously reported code = BA%) PERFORMED % result: 0.4 %Ed ited by: [email or web address] on 08/01/21:2336~~ ~~~~~~~~~ ~~~~~~~~~~~~~~~ ~~~~~~~~~ ~~~~~ Thi [...] code = NT#) PERFORMED result: 9.7 K/m v7Zzsmfq K/mm3 by: Gaye o n 08/01/21:233~~ ~~~~~~~~~ ~~~~~~~~~~~~~~~ ~~~~~~~~~ ~~~~~ Thi s is a CORRECTED REPOR T IMMATURE TEST NOT 0.00-0.03 GRANULOCYTE # PERFORMED x10 (test code = IG#) 3/uL LYMPHOCYTE # (test TEST NOT 0.6-3.2 N Previousl y reported code = LY#) PERFORMED result: 0.9 K/m o6Wgpbzw K/mm3 by: Gaye o n 08/01/21:2336~~ ~~~~~~~~~ ~~~~~~~~~~~~~~~ ~~~~~~~~~ ~~~~~ Thi s is a CORRECTED REPOR T MONOCYTE # (test TEST NOT 0.3-1.1 H Previously reported code = MO#) PERFORMED result: 1.4 K/m v1Blzrlx K/mm3 by: Gaye o n 08/01/21:2336~~ ~~~~~~~~~ ~~~~~~~~~~~~~~~ ~~~~~~~~~ ~~~~~ Thi s is a CORRECTED REPOR T EOSINOPHIL # (test TEST NOT 0.0-0.4 N Previousl y reported code = EO#) PERFORMED result: 0.4 K/m n8Badxvm K/mm3 by: AnaSI7 o n 08/01/21:2336~~ ~~~~~~~~~ ~~~~~~~~~~~~~~~ ~~~~~~~~~ ~~~~~ Thi s is a CORRECTED REPOR T BASOPHIL # (test TEST NOT 0.0-0.1 N Previously reported code = BA#) PERFORMED result: 0.0 K/m h0Syhocl K/mm3 by: Esteban7 o n 08/01/21:2336~~ ~~~~~~~~~ ~~~~~~~~~~~~~~~ ~~~~~~~~~ ~~~~~ Thi s is a CORRECTED REPOR T NUCLEATED RBC # TEST NOT 0.0-0.1 N Previously r eported (test code = PERFORMED result: 0.0 K/m z9Roqbml NRBC#) K/mm3 by: AnaSI7 o n 08/01/21:2336~~ ~~~~~~~~~ ~~~~~~~~~~~~~~~ ~~~~~~~~~ ~~~~~ Thi s is a CORRECTED REPOR T MANUAL DIFF TEST NOT CRITERIA SLIDE REVIEW CO NSISTANT REQUIRED (test PERFORMED WITH AUTO code = MDIFF) DIFF/SCN DIFFERENTIAL.P reviously reported result : NO DIFF/SCNEdited by: Gaye on 08/01/21:2336~~ ~~~~~~~~~ ~~~~~~~~~~~~~~~ ~~~~~~~~~ ~~~~~ Thi s is a CORRECTED REPOR T PATHOLOGIST'S TEST NOT COMMENTS FINDINGS (test PERFORMED code = PATH) EXTERNAL Comment: q6hr labs while lysis ongoingTHROMBOPLASTIN TIME [id number] 18:28:00 Test Item Value Reference Range Interpretation Comments THROMBOPLASTIN TIME PARTIAL 37.0 SECONDS 26-35 H (test code = PTT) [id number] 18:28:00 Test Item Value Reference Range Interpretation Comments FIBRINOGEN (test code = FIB) 653 mg/dL 185-453 H CBC W/AUTO [id number] 18:14:00 Test Item Value Reference Range Interpretation [...] Comment: q6hr labs while lysis ongoingCBC W/AUTO [id number] 10:32:00 Test Item Value Reference Range Interpretation [...] Comment: q6hr labs while lysis ongoingCBC W/AUTO [id number] 06:59:00 Test Item Value Reference Range Interpretation [...] MANUAL DIFF REQUIRED NO DIFF/SCN CRITERIA SLIDE Cris NEVES (test code = MDIFF) CONSISTA NT WITH AUTO DIFFERENTI AL. THROMBOPLASTIN TIME [id number] 05:04:00 Test Item Value Reference Range Interpretation Comments THROMBOPLASTIN TIME PARTIAL 36.2 SECONDS 26-35 H (test code = PTT) [id number] 05:04:00 Test Item Value Reference Range Interpretation Comments FIBRINOGEN (test code = FIB) 598 mg/dL 185-453 H BASIC METABOLIC [id number] 04:57:00 Test Item Value Reference Range Interpretation [...] CA) 8.7 MG/DL 8.5-10.1 N THROMBOPLASTIN TIME [id number] 23:32:00 Test Item Value Reference Range Interpretation Comments THROMBOPLASTIN TIME PARTIAL 39.3 SECONDS 26-35 H (test code = PTT) [id number] 23:32:00 Test Item Value Reference Range Interpretation Comments FIBRINOGEN (test code = FIB) 551 mg/dL 185-453 H THROMBOPLASTIN TIME [id number] 17:21:00 Test Item Value Reference Range Interpretation Comments THROMBOPLASTIN TIME PARTIAL 45.2 SECONDS 26-35 H (test code = PTT) [id number] 17:21:00 Test Item Value Reference Range Interpretation Comments FIBRINOGEN (test code = FIB) 615 mg/dL 185-453 H CBC W/AUTO [id number] 17:00:00 Test Item Value Reference Range Interpretation [...] Comment: q6hr labs while lysis ongoingTHROMBOPLASTIN TIME [id number] 09:24:00 Test Item Value Reference Range Interpretation Comments THROMBOPLASTIN TIME PARTIAL 63.7 SECONDS 26-35 H (test code = PTT) PROTHROMBIN [id number] 05:40:00 Test Item Value Reference Range Interpretation [...] o prevent recurre nt infarct). THROMBOPLASTIN TIME [id number] 05:40:00 Test Item Value Reference Range Interpretation Comments THROMBOPLASTIN TIME PARTIAL 57.1 SECONDS 26-35 H (test code = PTT) THYROID STIMULATING [id number] 04:54:00 Test Item Value Reference Range Interpretation Comments THYROID STIMULATING HORMONE 3.030 mcIU/ML 0.340-4.820 N (test code = TSH) COMPREHENSIVE METABOLIC [id number] 04:40:00 Test Item Value Reference Range Interpretation [...] (test code = ALKP) COVID 19 INHOUSE [id number] 04:36:00 Test Item Value Reference Range Interpretation Comments COVID 19 INHOUSE AG NEGATIVE Negative Per manu facturer, (test code = negative result s should [id number]) be treated aspr esumptive and, if inconsi [...] nsistent with COVID-19. Comment: NEW ADMITCBC W/AUTO [id number] 04:26:00 Test Item Value Reference Range Interpretation [...] code NO DIFF/SCN CRITERIA = MDIFF) - CHEST 1 [id number] 03:48:00 [facility] AZLEName: EMEKA JUSTIN : 1955 Sex: F Name: EMEKA JUSTIN [facility] : 1955 Age/S: 65 / F [id number] [address] [facility] Unit #: [id number] Loc: [place] [address] Phys: Yesy Logan MD Acct: [id number] Dis Date: Status: ADM IN PHONE #: [phone] Exam Date: 07/31/2021 0300 FAX #: Reason: pneumonia EXAMS: CPT: [id number] XR CHEST 1 V 87680 Fluoro Time: DAP (Gy m2): Air Kerma [...] PAGE 1 Signed Report Name: EMEKA JUSTIN [place] : 1955 Age/S:65 / F [address] [place] [address] Unit #: [id number] Loc: [place] [address] Phys: Yesy Logan MD Acct: [id number] Dis Date: Status: ADM IN PHONE #: [phone] Exam Date: 07/31/2021 0300 FAX #: Reason: pneumonia EXAMS: CPT: [id number] XR CHEST 1 V 65954 Fluoro Time: DAP (Gy m2): Air Kerma (mGy): <Continued> Technologist: Radhika Montenegro, RT(R)(CT) [facility] Date/Time: 07/31/2021 (0348) 16 Orig Print D/T: S: 07/31/2021 (0351) PAGE 2 Signed Report PROTHROMBIN [id number] 02:40:00 Test Item Value Reference Range Interpretation [...] o prevent recurre nt infarct). THROMBOPLASTIN TIME [id number] 02:40:00 Test Item Value Reference Range Interpretation Comments THROMBOPLASTIN TIME PARTIAL 129.0 SECONDS 26-35 HH (test code = PTT) PRO TIME AND [id number] 20:10:00 Test Item Value Reference Range Interpretation [...] ANTI-XA U/S ART FLW DOPPLER KARLA LOW [id number] 16:00:20 [facility] 1955 Sex: FEXAMINATION:U/S ART FLW DOPPLER KARLA LOW EXTCLINICAL INDICATION:Female, 65 years old with Weak arteri al pulseTECHNIQUE: Grayscale, color Doppler, and spectral waveform analysis of the bilateral lower extremity is performed.COMPARISON: NoneFINDINGS:Doppler: Right lower extremity:Common femoral artery velocity distally is diminished measuring 34.1 cm/s. Proximal [employer] demonstrates a velocity 380 cm/s. There is [...] the right lower extremity diffusely. Elevated proximal [employer] velocity is noted with diminished distal [employer] velocity.Electronically signed by: Delfino Tariq MD 07/30/2021 [...] (test code = MDIFF) NO BASIC METABOLIC [id number] 05:21:00 Test Item Value Reference Range Interpretation Comments GLUCOSE (test code 93 mg/dL 75-100 = 06D) SODIUM (test code 138 mmol/L 136-145 = 01A) POTASSIUM (test 3.6 mmol/L 3.6-5.1 code = 01B) CHLORIDE (test 103 mmol/L 98-107 code = 04A) CO2 (test code = 30 mmol/L 02A) ANION GAP (test 8.6 mmol/L code = ANG) BUN (test code = 15 mg/dL 12-23 05D) CREATININE (test 1.0 mg/dL 0.6-1.0 code = 03E) GFR (test code = 59 See_Comment L [Automated GFR) mL/min/1.73m\S\2 message] Th e system which generated this result transmit edward reference range : >=90. The reference range was not used to interpret this result as normal/abnormal . GFR 69 See_Comment L [Automated ITALIAN (test mL/min/1.73m\S\2 message] The code = GFRAA) system which generated this result transmit edward reference range : >=90. The reference range was not used to interpret this result as normal/abnormal . EGFR (test code = eGFR BY EGFR) CKD-EPI CALCULATION IS NOT RECOMMENDED FOR PATIENTS UNDER 18 YEARS OF AGE. BUN/CREA (test 15 03-21 code = BCR) CALCIUM (test code 8.1 mg/dL 8.3-10.6 L = 09D) VANCOMYCIN [id number] 09:41:00 Test Item Value Reference Range Interpretation Comments VANC TROGH (test code = VANCT) 17.6 ug/dL 10.0-20.0 BASIC METABOLIC [id number] 05:36:00 Test Item Value Reference Range Interpretation Comments GLUCOSE (test code 101 mg/dL 75-100 H = 06D) SODIUM (test code 141 mmol/L 136-145 = 01A) POTASSIUM (test 3.0 mmol/L 3.6-5.1 L code = 01B) CHLORIDE (test 105 mmol/L 98-107 code = 04A) CO2 (test code = 29 mmol/L 02A) ANION GAP (test 10.0 mmol/L code = ANG) BUN (test code = 13 mg/dL 12-23 05D) CREATININE (test 1.0 mg/dL 0.6-1.0 code = 03E) GFR (test code = 59 See_Comment L [Automated GFR) mL/min/1.73m\S\2 message] Th e system which generated this result transmit edward reference range : >=90. The reference range was not used to interpret this result as normal/abnormal . GFR 69 See_Comment L [Automated ITALIAN (test mL/min/1.73m\S\2 message] The code = GFRAA) [...] RBCMOR) NORMAL U/S VENOUS DOPPLER KARLA LOW [id number] 01:46:07 [facility] : 1955 Sex: FEXAM: BILATERAL [...] Doris Gillette MD 07/29/2021 1:46 AM CDT [id number] NATRIURETIC [id number] 15:16:00 Test Item Value Reference Range Interpretation Comments BNP (test code = 1010 pg/mL See_Comment H [Automated message] The A74) system which ge nerated this result tra nsmitted reference range : <=100. The reference r azra was not used to int erpret this result as normal/abnormal . CBC WITH MANUAL [id number] 07:39:00 Test Item Value Reference Range Interpretation [...] code = 1+ NONE A HYPOC) CARDIAC [id number] 07:02:00 Test Item Value Reference Range Interpretation Comments TROPONIN I (test code = A84) 106.56 pg/mL 0.00-45.20 HH BASIC METABOLIC [id number] 06:59:00 Test Item Value Reference Range Interpretation [...] = 13 mg/dL 9-23 05D) CREATININE (test 0.7 mg/dL 0.6-1.0 code = 03E) GFR (test code = 91 See_Comment [Automated GFR) mL/min/1.73m\S\2 message] Th e system which generated this result transmit edward reference range : >=90. The reference range was not used to interpret this result as normal/abnormal . GFR 106 See_Comment [Automated ITALIAN (test mL/min/1.73m\S\2 message] The code = GFRAA) [...] code 7.4 mg/dL 8.3-10.6 L = 09D) [id number] 06:48:00 Test Item Value Reference Range Interpretation Comments D-DIMER (test code = 607 ng/mL D-DU 0-234 H DDI) D-DIMER COMMENT (test *Level to rule out code = DDCOM) DVT or PE: <235 ng/mL D-DU* CARDIAC [id number] 00:54:00 Test Item Value Reference Range Interpretation Comments TROPONIN I (test code = A84) 141.88 pg/mL 0.00-45.20 METLAC 12 PANEL *OW* [id number] 12:27:00 Test Item Value Reference Range Interpretation [...] 3.2 mg/dL 2.2-4.1 METLAC 12 PANEL *OW* [id number] 10:58:00 Test Item Value Reference Range Interpretation [...] the FDA and the [employer] of the [employer] (CAP) are more stringent than those required for this test. Therefore, the result should be interpreted with caution and close attention to other clinical and epidemiological data TROPONIN I OW2021-07-27 10:30:00 Test Item Value Reference Range Interpretation Comments TROPONIN I (test <0.05 ng/mL See_Comment [Automated message] code = GTPI) The system [employer] generated this result transmitted ref erence range: [...] as normal/abnormal . MetyLyte 8 Panel *OW* [id number] 10:02:00 Test Item Value Reference Range Interpretation [...] 26 mmol/L 18-33 GENERAL CHEMISTRY 13 *OW* [id number] 10:02:00 Test Item Value Reference Range Interpretation [...] XR CHEST 1 VIEW PORTABLE *OW*2021-07-27 10:00:22 [facility] : 1955 Sex: FPortable AP chest, 1 viewLocation Code: [id number] HISTORY: DyspneaCOMPARISON: 09/15/2017COMMENT: The heart size is normal with central congestion and scattered patchy diffuse bilateral perihilar and lower lobe infiltrates consistent with pneumonia progressive in the interval. Arthrosis seen about both shoulders.IMPRESSION: Central pulmonary congestion with moderate bilateral bronchopneumonia.Electron ically signed by: Girish Gillespie MD 07/27/2021 10:00 AM CDT [id number] (INCLUDES AUTOMATED DIFFERENTIAL) *2021-07-27 10:00:00 Test Item [...] H XR SHOULDER RIGHT 3VIEWS *OW*2021-02-22 14:34:03 [facility] : 1955 Sex: FEXAMINATION:XR SHOULDER RIGHT 3VIEWS CLINICAL INDICATION:Female, 65 years old with Pain of right shoulder jointCOMPARISON: NoneFINDINGS:Three view(s) of the right shoulder obtained.Joint spaces: Moderate osteoarthritis of the acromioclavicular and glenohumeral joints.Bones: No acute fracture.Soft tissues: Unremarkable.IMPRESSION: Moderate osteoarthritis. Otherwise, no acute abnormality.Electronically signed by: Kenneth Sanchez MD 02/22/2021 2:34 PM [facility] [id number] TIME i-STAT OW2020-08-26 10:11:00 Test Item Value Reference Range Interpretation Comments PT (test code = 13.7 s 10.0-13.0 H PT1) INR (test code = 1.1 INR) INRH (test code = SUGGESTED INRH) THERAPEUTIC RANGE FOR INR: 2.5 - 3.5 For Patients with Prosthetic Valves or Patients with recurrent Thromboembolic Events 2.0 - 3.0 For Most Other Applications MetyLyte 8 Panel *OW* [id number] 09:55:00 Test Item Value Reference Range Interpretation [...] the FDA and the [employer] of the [employer] (CAP) are more stringent than those required for this test. Therefore, the result should be interpreted with caution and close attention to other clinical and epidemiological data XR HIP RIGHT UNILATERAL 2 VIEWS *OW*2020-08-26 07:50:17 [facility] : 1955 Sex: FEXAM: XR HIP 2 OR MORE VIEWS BILATERALCLINICAL HISTORY: PainCOMPARISON: None available.TECHNIQUE: AP and lateral views of the right hip.LOCATION: [id number]:Bones: No displaced fracture or dislocation identified. Normal [...] HAND LEFT COMPLETE 3 VIEWS *OW*2020-08-26 07:46:40 [facility] : 1955 Sex: FEXAM: XR HAND 3 OR MORE VIEWSCLINICAL HISTORY: PainCOMPARISON: None available.TECHNIQUE: PA, Oblique, and lateral views of the left hand.LOCATION: [id number]:Bones: No dislocation identified. Normalmarrow density. A well-corticated [...] 11:28:17CT abdomen and pelvis without contrastLocation Code: [id number] HISTORY: Abdominal painCOMPARISON: Technique: Helical CT of [...] (RENAL)2017-09-21 07:28:32CLINICAL INFORMATION: Essential hypertension workup.Dictation location: G9Ksssviammc: Abdomen CT 09/13/17 reported no apparent abnormality [...] than the left. Otherwise unremarkable.CBC WITH MANUAL [id number] 06:34:00 Test Item Value Reference Range Interpretation [...] code = NORMAL (1.5-3 um) NORMAL PLTMOR) [id number] 05:49:00 Test Item Value Reference Range Interpretation Comments MAGNESIUM (test code = 48A) 1.9 mg/dL 1.8-2.4 BASIC METABOLIC [id number] 05:47:00 Test Item Value Reference Range Interpretation [...] code = 09D) 9.0 mg/dL 8.3-9.5 BLOOD [id number] 13:05:00 Test Item Value Reference Range Interpretation Comments Culture Observations (test NO GROWTH AFTER 5 code = COB1) DAYS CBC WITH MANUAL [id number] 07:37:00 Test Item Value Reference Range Interpretation [...] PLTMOR) rare giant pl t BASIC METABOLIC [id number] 06:39:00 Test Item Value Reference Range Interpretation [...] code = 09D) 8.4 mg/dL 8.3-9.5 BLOOD [id number] 07:48:00 Test Item Value Reference Range Interpretation Comments Culture Observations (test NO GROWTH AFTER 5 code = COB1) DAYS CBC WITH MANUAL [id number] 05:54:00 Test Item Value Reference Range Interpretation [...] = PRESENT NONE A VAC) BASIC METABOLIC [id number] 05:11:00 Test Item Value Reference Range Interpretation [...] = 09D) 8.8 mg/dL 8.3-9.5 BASIC METABOLIC [id number] 05:33:00 Test Item Value Reference Range Interpretation [...] (test code = RBCMOR) NORMAL BASIC METABOLIC [id number] 21:29:00 Test Item Value Reference Range Interpretation [...] 09D) 7.9 mg/dL 8.3-9.5 L BASIC METABOLIC [id number] 17:18:00 Test Item Value Reference Range Interpretation [...] = 09D) 8.0 mg/dL 8.3-9.5 L URINE [id number] 07:45:00 Test Item Value Reference Range Interpretation Comments Culture Observations (test NO GROWTH (<1,000 code = COB1) CFU/ML) BASIC METABOLIC [id number] 07:18:00 Test Item Value Reference Range Interpretation [...] RBC MORPH (test code = RBCMOR) NORMAL [id number] 07:06:00 Test Item Value Reference Range Interpretation Comments MAGNESIUM (test code = 48A) 1.7 mg/dL 1.8-2.4 L BASIC METABOLIC [id number] 07:01:00 Test Item Value Reference Range Interpretation [...] MORPH (test code = RBCMOR) NORMAL LACTIC [id number] 23:39:00 Test Item Value Reference Range Interpretation Comments LACTIC ACD (test code = LA) 0.8 mmol/L 0.4-2.0 URINALYSIS WITH [id number] 12:26:00 Test Item Value Reference Range Interpretation [...] USPERM) /HPF NONE XR CHEST 1 VIEW [id number] 10:40:07Exam: Chest portable erectLocation: I9Tqbechk: [id number]: LeukocytosisComparison: 09/13/2017.Findings:The current film was exposed in a shallow degree of inspiration with intervaldevelopment of bibasilar atelectasis. The heart size is unchanged. Themediastinal silhouette is unremarkable. The bony thorax is intact. Anasogastric tube traverses the thorax.Impression:Basilar atelectasis.CBC WITH MANUAL [id number] 08:57:00 Test Item Value Reference Range Interpretation [...] NORMAL (1.5-3 um) NORMAL PLTMOR) COMPREHENSIVE METABOLIC [id number] 06:45:00 Test Item Value Reference Range Interpretation [...] code = 31A) 21 IU/L <=78 LIPASE [id number] 06:45:00 Test Item Value Reference Range Interpretation Comments LIPASE (test code = 60A) 42 IU/L 73-[address] ABDOMEN AND PELVIS W/O CONTRAST *OW*2017-09-14 02:57:29Critical results reported to Dr. Lobo by telephone at 2329 hours.XR CHEST 1 VIEW PORTABLE *OW* 2017-09-13 23:53:01STUDY: Chest radiographHISTORY: Abdominal pain.COMPARISON: CT abdomen/pelvis 09/13/17.TECHNIQUE: Frontal view of the chest.LOCATION: [id number]:The cardiac silhouette is unremarkable. Low lung volumesaccentuate [...]
[2021-08-21] MEDS ORDERED: HYDROMORPHONE HCL 0.5 MG/0.5 ML INJ ONE (23:01)
[2021-08-21] MEDS ORDERED: ONDANSETRON 4 MG/2 ML VIAL ONE (23:02)
[2021-08-21] MEDS ORDERED: PIPERACIL/TAZO 3.375 GM VIAL IV ONE (23:02)
[2021-08-21] MEDS ORDERED: NA CHLORIDE 0.9% 1,000 ML ONE (23:02)
[2021-08-21] MEDS ORDERED: NA CHLORIDE 0.9% 500 ML ONE (23:02)
[2021-08-21] MEDS ORDERED: NA CHLORIDE 0.9% 100 ML IV ONE (23:02)
[2021-08-21 23:14] LABS: Protime INR 1.43
[2021-08-21 23:15] LABS: Absolute Lymphocytes (CBC) 1.5 K/uL (0.7-4.9); Hematocrit 27.2 % (36.0-45.0); Lymphocytes % 12.6 % (15.3-44.8); MPV 7.6 fL (7.6-11.3); RBC Red Blood Cell Count 2.89 M/uL (3.86-4.86)
[2021-08-21 23:27] LABS: Albumin 2.9 g/dL (3.4-5.0); Bilirubin Direct 0.1 mg/dL (0-0.2); Bilirubin Total 0.3 mg/dL (0.2-1.0); Magnesium 1.7 mg/dL (1.8-2.4); Potassium 4.3 mmol/L (3.5-5.1); Protein, Total 7.8 g/dL (6.4-8.2); Troponin High Sensitivity 12.4 pg/mL (<58.9)
--- NOTE | 2021-08-22 00:06 | EDPHYS ---
Physician Documentation [facility] Name: Ara Vernon Age: 65 yrs Sex: Female : 1955 Arrival Date: 08/21/2021 Time: 22:22 Bed 3 Private MD: ED Physician Joses Rosenberg HPI: 08/21 22:48 This 65 yrs old Black Female presents to ER via EMS with complaints of RIGHT LEG PAIN, rhys ISCHEMIC. 22:48 The patient presents with decreased range of motion, pain, that is acute. The rhys complaints affect the lateral aspect of right calf, lateral aspect of right foot, medial aspect of right calf, medial aspect of right foot, right arango and dorsum of right foot. Context: The problem was sustained at an unknown site. Onset: The symptoms/episode began/occurred 2 week(s) ago. Modifying factors: The symptoms are alleviated by nothing. the symptoms are aggravated by movement, weight bearing. Associated signs and symptoms: Pertinent positives: calf tenderness. Historical: - Allergies: 22:26 Aspirin; kd3 22:26 tramadol; kd3 - PMHx: 22:26 Anxiety; CHF; Chronic Embolism and Thrombosis of vein; Chronic pain; depressive kd3 disorder; GERD; Hypertensive disorder; Pneumonia; PVD; - Immunization history:: Adult Immunizations up to date. - Social history:: Smoking status: unknown. ROS: 22:51 Constitutional: Negative for fever, chills, and weight loss. rhys Exam: 22:52 Constitutional: This is a well developed, well nourished patient who is awake, alert, rhys and in no acute distress. Head/Face: Normocephalic, atraumatic. Eyes: Pupils equal round and reactive to light, extra-ocular motions intact. Lids and lashes normal. Conjunctiva and sclera are non-icteric and not injected. Cornea within normal limits. Periorbital areas with no swelling, redness, or edema. ENT: Nares patent. No nasal discharge, no septal abnormalities noted. Tympanic membranes are normal and external auditory canals are clear. Oropharynx with no redness, swelling, or masses, exudates, or evidence of obstruction, uvula midline. Mucous membranes moist. Neck: Trachea midline, no thyromegaly or masses palpated, and no cervical lymphadenopathy. Supple, full range of motion without nuchal rigidity, or vertebral point tenderness. No Meningismus. Chest/axilla: Normal chest wall appearance and motion. Nontender with no deformity. No lesions are appreciated. Cardiovascular: Regular rate and rhythm with a normal S1 and S2. No gallops, murmurs, or rubs. Normal PMI, no JVD. No pulse deficits. Respiratory: Lungs have equal breath sounds bilaterally, clear to auscultation and percussion. No rales, rhonchi or wheezes noted. No increased work of breathing, no retractions or nasal flaring. Abdomen/GI: Soft, non-tender, with normal bowel sounds. No distension or tympany. No guarding or rebound. No evidence of tenderness throughout. Back: No spinal tenderness. No costovertebral tenderness. Full range of motion. Female : Normal external genitalia. Skin: Warm, dry with normal turgor. Normal color with no rashes, no lesions, and no evidence of cellulitis. 22:52 Musculoskeletal/extremity: Extremities: decreased ROM, erythema, pain, swelling, tenderness, ALL 5 TOES ARE NECROTIC, ECCHYMOSIS, SKIN WITH BLISTERS. 08/22 01:29 ECG was reviewed by the Attending Physician. [facility] Vital Signs: 08/21 22:23 BP 179 / 98; Pulse 85; Resp 18; Temp 99.1; Pulse Ox 100% on R/A; Weight 63.5 kg; Height kd3 5 ft. 6 in. (167.64 cm); Pain 9/10; 23:00 BP 148 / 118; Pulse 71; Resp 21 S; Pulse Ox 99% on R/A; as6 08/22 00:00 BP 137 / 105; Pulse 75; Resp 13 S; Pulse Ox 100% on R/A; as6 01:03 BP 171 / 55; Pulse 74; Resp 18 S; Pulse Ox 97% on R/A; as6 02:00 BP 162 / 61; Pulse 70; Resp 15 S; Pulse Ox 98% on R/A; as6 03:00 BP 154 / 96; Pulse 76; Resp 22 S; Pulse Ox 100% on R/A; as6 08/21 22:23 Body Mass Index 22.60 (63.50 kg, 167.64 cm) kd3 MDM: 08/21 22:27 Patient medically screened. [facility] 22:54 Differential diagnosis: abrasion. Data reviewed: vital signs, nurses notes, lab test rhys result(s), EKG, radiologic studies, plain films. Data interpreted: research associate: rate is 85 beats/min, Pulse oximetry: on room air is 100 %. Test interpretation: by ED physician or midlevel provider: ECG, plain radiologic studies. Counseling: I had a detailed discussion with the patient and/or guardian regarding: the historical points, exam findings, and any diagnostic results supporting the discharge/admit diagnosis, lab results, radiology results. 08/21 22:48 Order name: Basic Metabolic Panel; Complete Time: 00:08 [facility] 08/21 22:48 Order name: CBC with Diff; Complete Time: 00:08 [facility] 08/21 22:48 Order name: LFT's; Complete Time: 00:08 [facility] 08/21 22:48 Order name: Magnesium; Complete Time: 00:08 [facility] 08/21 22:48 Order name: NT PRO-BNP; Complete Time: 00:08 [facility] 08/21 22:48 Order name: PT-INR; Complete Time: 00:08 [facility] 08/21 22:48 Order name: Troponin HS; Complete Time: 00:08 [facility] 08/21 22:48 Order name: XRAY Chest (1 view) 08/21 22:48 Order name: Lipase; Complete Time: 00:08 [facility] 08/21 22:51 Order name: Blood Culture Adult (2) 08/21 22:51 Order name: Lactate; Complete Time: 00:08 [facility] 08/21 22:51 Order name: Procalcitonin; Complete Time: 00:52 [facility] 08/21 22:52 Order name: SARS-COV-2 RT PCR (Document "Date of Onset" if Symptomatic); Complete Time: [facility] 00:08/21 23:05 Order name: US Lower Extremity Artery Uni [employer] [facility] 08/21 22:48 Order name: EKG; Complete Time: 22:49 [facility] 08/21 22:48 Order name: Cardiac monitoring; Complete Time: 22:48 [facility] 08/21 22:48 Order name: EKG - Nurse/Tech; Complete Time: 01:01 [facility] 08/21 22:48 Order name: IV Saline Lock; Complete Time: 22:48 [facility] 08/21 22:48 Order name: Labs collected and sent; Complete Time: 22:59 [facility] 08/21 22:48 Order name: O2 Per Protocol; Complete Time: 22:48 rhys 08/21 22:48 Order name: O2 Sat Monitoring; Complete Time: 22:48 rhys 08/21 22:51 Order name: Wound dressing: WOUND CARE, WET TO DRY rhys EC/23 01:29 Rate is 66 beats/min. Rhythm is regular. QRS Roby is Normal. GA interval is normal. QRS rhys interval is normal. QT interval is normal. No Q waves. T waves are Normal. No ST changes noted. Clinical impression: LVH and No evidence of ischemia. Interpreted by me. Reviewed by me. Administered Medications: 08/21 23:16 Drug: NS 0.9% 500 ml Route: IV; Rate: bolus; Site: right antecubital; 08/22 03:29 Follow up: Response: No adverse reaction; IV Status: Completed infusion; IV Intake: as6 500ml 08/21 23:16 Drug: NS 0.9% 1000 ml Route: IV; Rate: 125 ml/hr; Site: right antecubital; 08/22 03:29 Follow up: IV Status: Infusion continued upon transfer 08/21 23:17 Drug: Dilaudid (HYDROmorphone) 0.5 mg Route: IVP; Site: right antecubital; 08/22 03:29 Follow up: Response: No adverse reaction; RASS: Alert and Calm (0) 08/21 23:17 Drug: Zofran (Ondansetron) 4 mg Route: IVP; Site: right antecubital; 08/22 03:29 Follow up: Response: No adverse reaction 08/21 23:17 Drug: Zosyn (piperacillin-tazobactam) 3.375 grams Route: IVPB; Infused Over: 60 mins; as6 Site: right antecubital; 08/22 03:30 Follow up: Response: No adverse reaction; IV Status: Completed infusion; IV Intake: as6 100ml 00:50 Drug: Dilaudid (HYDROmorphone) 0.5 mg Route: IVP; Site: right antecubital; as 03:29 Follow up: Response: No adverse reaction; RASS: Alert and Calm (0) as6 00:50 Drug: Magnesium Sulfate 1 grams Route: IVPB; Infused Over: 1 hrs; Site: right as6 antecubital; 03:30 Follow up: Response: No adverse reaction; IV Status: Completed infusion; IV Intake: [id number] 01:01 Drug: vancoMYCIN 1 grams Route: IVPB; Infused Over: 2 hrs; Site: right antecubital; as6 03:30 Follow up: Response: No adverse reaction; IV Status: Completed infusion; IV Intake: as6 250ml 03:24 Drug: Dilaudid (HYDROmorphone) 0.5 mg Route: IVP; Site: right antecubital; kd3 03:30 Follow up: Response: No adverse reaction; RASS: Alert and Calm (0) as6 Disposition Summary: 08/22/21 00:05 Transfer Ordered Transfer Location: Other Acute Care Facility rhys Reason: Higher level of care rhys Condition: Serious rhys Problem: an ongoing problem rhys Symptoms: have worsened rhys Accepting Physician: JOSE DANIEL castillo(08/22/21 03:31) as6 Diagnosis - Peripheral vascular disease, unspecified - ischemic right foot rhys - Pain in right leg rhys - Pain in right lower leg rhys - Cellulitis and acute lymphangitis of other parts of limb - right foot, lower rhys extremity - Anemia, unspecified rhys - Hypomagnesemia rhys - Tobacco use rhys Forms: - Medication Reconciliation Form rhys - SBAR form rhys Signatures: Dispatcher [employer] Josse Guardado MD MD cha Slawson, Ashby, RN RN as6 Daja Torres RN RN kd3 Corrections: (The following items were deleted from the chart) 00:07 00:05 JOSE DANIEL castillo cha rhys 00:08 00:07 JOSE DANIEL castillo cha rhys 03:31 00:08 JOSE DANIEL castillo cha as6
--- NOTE | 2021-08-22 00:06 | ER ---
Nurse's Notes [facility] Name: Ara Vernon Age: 65 yrs Sex: Female : 1955 Arrival Date: 08/21/2021 Time: 22: Bed 3 Private MD: Diagnosis: Peripheral vascular disease, unspecified-ischemic right foot;Pain in right leg;Pain in right lower leg;Cellulitis and acute lymphangitis of other parts of limb-right foot, lower extremity;Anemia, unspecified;Hypomagnesemia;Tobacco use Presentation: 08/21 22:23 Chief complaint: EMS states: pt had a right femoral occlusion that was operated on "not kd3 too long ago". unsure of exactly the date. now the right foot and toes has become necrotic and is causing sever pain. pt's doctor in [facility] has said that they will amputate the right leg but there is no date scheduled for amputation. Coronavirus screen: Vaccine status: Patient reports receiving the 2nd dose of the covid vaccine. Coronavirus screen: Vaccine status: Patient reports being unvaccinated. Ebola Screen: No symptoms or risks identified at this time. Initial Sepsis Screen: Does the patient meet any 2 criteria? No. Patient's initial sepsis screen is negative. Does the patient have a suspected source of infection? No. Patient's initial sepsis screen is negative. Risk Assessment: Do you want to hurt yourself or someone else? Patient reports no desire to harm self or others. Onset of symptoms was August 21, 2021. 22:23 Method Of Arrival: EMS: [facility] kd3 22:23 Acuity: BRIAN 3 kd3 Triage Assessment: 22:26 General: Appears uncomfortable, Behavior is calm, cooperative. Pain: Complains of pain kd3 in right leg. Neuro: Level of Consciousness is awake, alert, obeys commands, Oriented to person, place, time, situation. Cardiovascular: Patient's skin is warm and dry. Respiratory: Airway is patent Trachea midline Respiratory effort is even, unlabored. GI: No signs and/or symptoms were reported involving the gastrointestinal system. : No signs and/or symptoms were reported regarding the genitourinary system. Historical: - Allergies: 22:26 Aspirin; kd3 22:26 tramadol; kd3 - PMHx: 22:26 Anxiety; CHF; Chronic Embolism and Thrombosis of vein; Chronic pain; depressive kd3 disorder; GERD; Hypertensive disorder; Pneumonia; PVD; - Immunization history:: Adult Immunizations up to date. - Social history:: Smoking status: unknown. Screenin:28 Abuse screen: Denies threats or abuse. Denies injuries from another. Nutritional kd3 screening: No deficits noted. Tuberculosis screening: No symptoms or risk factors identified. Fall Risk Gait- Weak (10 pts.). Assessment: 08/22 03:00 General: pt continues to have pain to right leg, provider notified . Respiratory: as6 Respiratory effort is even, unlabored, Respiratory pattern is regular, symmetrical. Vital Signs: 08/21 22:23 BP 179 / 98; Pulse 85; Resp 18; Temp 99.1; Pulse Ox 100% on R/A; Weight 63.5 kg; Height kd3 5 ft. 6 in. (167.64 cm); Pain 9/10; 23:00 BP 148 / 118; Pulse 71; Resp 21 S; Pulse Ox 99% on R/A; as6 08/22 00:00 BP 137 / 105; Pulse 75; Resp 13 S; Pulse Ox 100% on R/A; as6 01:03 BP 171 / 55; Pulse 74; Resp 18 S; Pulse Ox 97% on R/A; as6 02:00 BP 162 / 61; Pulse 70; Resp 15 S; Pulse Ox 98% on R/A; as6 03:00 BP 154 / 96; Pulse 76; Resp 22 S; Pulse Ox 100% on R/A; as6 08/21 22:23 Body Mass Index 22.60 (63.50 kg, 167.64 cm) kd3 ED Course: 08/21 22:22 Patient arrived in ED. as6 22:22 Daja Torres, RN is Primary Nurse. kd3 22:26 Triage completed. kd3 22:26 Arm band placed on right wrist. kd3 22:27 Josse Rosenberg MD is Attending Physician. [facility] 22:28 Patient has correct armband on for positive identification. kd3 22:28 No provider procedures requiring assistance completed. kd3 22:35 Inserted saline lock: 20 gauge in right antecubital area, using aseptic technique. Blood collected. 22:59 Troponin HS Sent. 22:59 PT-INR Sent. zm 22:59 NT PRO-BNP Sent. zm 22:59 Magnesium Sent. zm 22:59 LFT's Sent. zm 22:59 CBC with Diff Sent. zm 22:59 Basic Metabolic Panel Sent. zm 22:59 Blood Culture Adult (2) Sent. zm 22:59 Procalcitonin Sent. zm 22:59 Lactate Sent. zm 23:09 XRAY Chest (1 view) In Process Unspecified. EDMS 23:42 US Lower Extremity Artery Uni Ltd In Process Unspecified. EDMS 08/22 03:23 SPOKE WITH [facility] \\T\\0056 ADMIN APPROVAL. kj1 03:28 Patient transferred, IV remains in place. as6 Administered Medications: 08/21 23:16 Drug: NS 0.9% 500 ml Route: IV; Rate: bolus; Site: right antecubital; as08/22 03:29 Follow up: Response: No adverse reaction; IV Status: Completed infusion; IV Intake: as6 500ml 08/21 23:16 Drug: NS 0.9% 1000 ml Route: IV; Rate: 125 ml/hr; Site: right antecubital; as08/22 03:29 Follow up: IV Status: Infusion continued upon transfer as6 08/21 23:17 Drug: Dilaudid (HYDROmorphone) 0.5 mg Route: IVP; Site: right antecubital; 08/22 03:29 Follow up: Response: No adverse reaction; RASS: Alert and Calm (0) as08/21 23:17 Drug: Zofran (Ondansetron) 4 mg Route: IVP; Site: right antecubital; as08/22 03:29 Follow up: Response: No adverse reaction 08/21 23:17 Drug: Zosyn (piperacillin-tazobactam) 3.375 grams Route: IVPB; Infused Over: 60 mins; as6 Site: right antecubital; 08/22 03:30 Follow up: Response: No adverse reaction; IV Status: Completed infusion; IV Intake: as6 100ml 00:50 Drug: Dilaudid (HYDROmorphone) 0.5 mg Route: IVP; Site: right antecubital; as 03:29 Follow up: Response: No adverse reaction; RASS: Alert and Calm (0) as6 00:50 Drug: Magnesium Sulfate 1 grams Route: IVPB; Infused Over: 1 hrs; Site: right as6 antecubital; 03:30 Follow up: Response: No adverse reaction; IV Status: Completed infusion; IV Intake: 95oxdt8 01:01 Drug: vancoMYCIN 1 grams Route: IVPB; Infused Over: 2 hrs; Site: right antecubital; as6 03:30 Follow up: Response: No adverse reaction; IV Status: Completed infusion; IV Intake: as6 250ml 03:24 Drug: Dilaudid (HYDROmorphone) 0.5 mg Route: IVP; Site: right antecubital; kd3 03:30 Follow up: Response: No adverse reaction; RASS: Alert and Calm (0) as6 Medication: 08/21 22:28 VIS not applicable for this client. kd3 Intake: 23 03:29 IV: 500ml; Total: 500ml. as6 03:30 IV: 100ml; Total: 600ml. as6 03:30 IV: 250ml; Total: 850ml. as6 03:30 IV: 50ml; Total: 900ml. as6 Outcome: 00:05 ER care complete, transfer ordered by MD. joiner 03:28 Transferred by ground EMS to other acute care facility: [facility]. Transfer form completed. as6 X-rays sent w/ patient. 03:28 Condition: stable 03:28 Instructed on the need for transfer. 03:31 Patient left the ED. as6 Signatures: Dispatcher [employer] Josse Guardado MD MD cha Jackson, Kandis kj1 Hemant Piedra RN RN as6 Daja Torres RN RN kd3 Chandni Gomez
[2021-08-22] MEDS ORDERED: MAGNESIUM SULFATE 1 gm IVPB 1 GM/100 ML BAG IV ONE (00:49)
[2021-08-22] MEDS ORDERED: VANCOMYCIN 1 GM/VIAL ONE (00:49)
[2021-08-22] MEDS ORDERED: HYDROMORPHONE HCL 0.5 MG/0.5 ML INJ ONE ×2 (00:49→03:29)
[2021-08-22] MEDS ORDERED: NA CHLORIDE 0.9% 250 ML ONE (00:49)
[2021-08-22 03:39] VITALS: TEMP 99.1
[2021-08-22 03:52] VITALS: BP 154/96; O2SAT 100
--- NOTE | 2021-08-22 11:24 | EKG ---
Test Date: 2021-08-22 Test Time: 00:55:29 Stack Clerk: MEASUREMENT RESULTS: Intervals: Rate: 66 ND: 172 QRSD: 86 QT: 428 QTc: 448 [place]: P: 55 ND: 172 QRS: 22 T: 54 INTERPRETIVE STATEMENTS: Normal sinus rhythm Moderate voltage criteria for LVH, may be normal variant Nonspecific T wave abnormality Abnormal ECG No previous ECG available for comparison Electronically Signed On 08-22-21 11:23:15 CDT by Tomas Walden
--- NOTE | 2021-08-22 13:36 | RAD REPORT ---
EXAM DESCRIPTION: XR Chest, 1 View CLINICAL HISTORY: COUGH TECHNIQUE: Frontal view of the chest. COMPARISON: XR Chest dated 07/27/2021 FINDINGS: Lungs: Unremarkable. No consolidation. Pleural space: Unremarkable. No pneumothorax. Heart: Unremarkable. No cardiomegaly. Mediastinum: Unremarkable. Bones/joints: Unremarkable. IMPRESSION: No acute disease. Electronically signed by: Grady Foster MD 08/21/2021 11:26 PM CDT Due to temporary technical issues with the PACS/Fluency reporting system, reports are being signed by the in house radiologist without review as a courtesy to ensure prompt reporting. The interpreting r adiologist is fully responsible for the content of the report.
--- NOTE | 2021-08-22 13:37 | RAD REPORT ---
EXAM DESCRIPTION: Lower Extremity Artery Uni Ltd CLINICAL HISTORY: 65 years Female, PAIN Lower Extremity Artery Uni Ltd COMPARISON: None. TECHNIQUE: Grayscale, color Doppler, and spectral Doppler imaging of the right lower extremity arter ies. FINDINGS: Velocities: (All velocities in centimeters per second) Right lower extremity- DETAIL SERGEANT: 211 Proximal SFA: 156 Mid SFA: 90 Distal SFA: 141 Popliteal: 50 PULP BLEACHER: 98 DPA: No definite blood flow identified. Doppler imaging: Right leg: Monophasic waveforms at the right lower extremity. Elevated velocity in the right common femoral artery measuring 211 cm/s. No definite blood flow identified in the dorsalis pedis artery. IMPRESSION: 1. Findings suggest flow-limiting stenosis in the right common femoral artery with eleva edward velocity. Monophasic waveforms throughout the right lower extremity arteries. 2. No definite blood flow identified in the dorsalis pedis artery. This may be on the basis of chroni c occlusion. 3. CTA would provide more complete characterization Electronically signed by: Srinivas Guardado 08/22/2021 12:06 AM CDT Due to temporary technical issues with the PACS/Fluency reporting system, reports are being signed by the in house radiologist without review as a courtesy to ensure prompt reporting. The interpreting r adiologist is fully responsible for the content of the report.
== END 2021-08-22 03:31 ==
LOC: ER 22:17
DX: I73.9 Peripheral vascular disease, unspecified (principal); L03.115 Cellulitis of right lower limb; I89.1 Lymphangitis; D64.9 Anemia, unspecified; E83.42 Hypomagnesemia; Z88.6 Allergy status to analgesic agent; K21.9 Gastro-esophageal reflux disease without esophagitis; F41.9 Anxiety disorder, unspecified; I50.9 Heart failure, unspecified; Z20.822 Contact with and (suspected) exposure to COVID-19
CPT/HCPCS: 96365; 96367; 93005; 87040 ×2; 85025; 80048; 36415; 83735; 85610; 80076; 83605; 84484; 83690; 84145; 83880; 71045; 93926; 96375; 99285; 96366; U0003; J2543; J3370; J3475; J1170 ×3; J7050; J7040; J7030; J2405

== ENCOUNTER 2021-09-09 20:41 | Emergency (ER) | payer OTHER ==
--- OUTSIDE RECORDS SUMMARY | 2021-09-09 20:50 | XMS REPORT | Continuity of Care Document ---
:1955 Author Organization [facility] t Address [facility]3 [address] [place] [address] Care Team Providers Name Role Phone ODERICH Attending Clinician Unavailable Swapnil Attending Clinician Unavailable Melissa Attending Clinician Unavailable Doreen Attending Clinician Unavailable DR LIZET Attending Clinician Unavailable MOHSEN Attending Clinician Unavailable DR Sally TRIPP Attending Clinician Unavailable DR HANK Attending Clinician Unavailable DR ESTEFANY Attending Clinician Unavailable DR Doreen WILKES Attending Clinician Unavailable TONY_Roc Admitting Clinician Unavailable Melissa Admitting Clinician Unavailable Doreen Admitting Clinician Unavailable Izabella Martinez Admitting Clinician Unavailable DR LIZET Admitting Clinician Unavailable MOHSEN Admitting Clinician Unavailable DR Sally TRIPP Admitting Clinician Unavailable DR HANK Admitting Clinician Unavailable DR ESTEFANY Admitting Clinician Unavailable DR OPAL Admitting Clinician Unavailable Payers Payer Name Policy Type Policy Number Effective Date Expiration Date S sea [facility] COMMUNITY [facility]AN [id number] 2020 2024 MEDICARE SNP 00:00:00 00:00:00 [facility] [id number] 2016 2016 MEDICAID [id number] 00:00:00 00:00:00 [facility] - [id number] 2021 [facility] 00:00:00 (MEDICARE REPLACEMENT/ADVANT AGE - HMO) [id number] 1959 00:00:00 [id number] 1958 00:00:00 Problems This patient has no known problems. Allergies, Adverse Reactions, Alerts Allergy Allergy Status Severity Reaction(s) Onset Inactive Treating Comm ents Source Name Type Date Date Clinician lisinopr DA Active U UNKNOWN [facility] 08-22 [place] 00:00: [facility] [address] [facility] aspirin DA Active U UNKNOWN [facility] 08-22 [place] 00:00: [facility] [address] [facility] tramadol DA Active U UNKNOWN [facility] 08-22 [place] 00:00: [facility] [address] [facility] lisinopr DA Active U UNKNOWN [facility] 07-31 [place] 00:00: [place] 00 [facility] aspirin DA Active U UNKNOWN [facility] 07-31 Clear 00:00: [place] 00 [facility] tramadol DA Active U UNKNOWN [facility] 07-31 Clear 00:00: [place] 00 [facility] Tramadol DA Active Unknown [facility] Aspirin DA Active Unknown [facility] Lisinopr DA Active Unknown [facility] Medications This patient has no known medications. Vital Signs Vital Name Observation Time Observation Value Comments Source Height 2021-07-27 09:20:00 165.1 CM Weight 2021-07-27 09:20:00 77.11 KG Height 2021-02-22 13:40:00 157.48 CM Weight 2021-02-22 13:40:00 70.76 KG Height 2020-08-26 06:23:00 170.18 CM Weight 2020-08-26 06:23:00 73.93 KG Procedures Procedure Date / Time Performed Performing Clinician Berhane hardy [id number] 2021-08-24 00:00:00 TYESHA [facility] [id number] 2021-08-24 00:00:00 TYESHA [facility] [id number] 2021-08-24 00:00:00 CHAKR.05 [facility] [id number] 2021-08-03 00:00:00 AYADI [facility] [id number] 2021-08-03 00:00:00 [facility] [id number] 2021-08-03 00:00:00 [facility] [id number] 2021-08-03 00:00:00 [facility] [id number] 2021-08-03 00:00:00 [facility] [id number] 2021-08-03 00:00:00 [facility] [id number] 2021-08-03 00:00:00 AYADI [facility] [id number] 2021-08-03 00:00:00 [facility] [id number] 2021-08-03 00:00:00 [facility] [id number] 2021-08-03 00:00:00 [facility] [id number] 2021-08-03 00:00:00 [facility] [id number] 2021-08-03 00:00:00 [facility] [id number] 2021-08-02 00:00:00 AYADI [facility] [id number] 2021-08-02 00:00:00 AYADI [facility] [id number] 2021-08-02 00:00:00 AYADI [facility] [id number] 2021-08-02 00:00:00 AYADI [facility] [id number] 2021-08-02 00:00:00 AYADI [facility] [id number] 2021-08-02 00:00:00 AYADI [facility] [id number] 2021-08-01 00:00:00 AYADI [facility] [id number] 2021-08-01 00:00:00 AYADI [facility] [id number] 2021-07-31 00:00:00 AYADI [facility] [id number] 2021-07-31 00:00:00 AYADI [facility] [id number] 2021-07-31 00:00:00 AYADI [facility] [id number] 2021-07-31 00:00:00 AYADI [facility] [id number] 2021-07-31 00:00:00 AYADI [facility] [id number] 2021-07-31 00:00:00 AYADI [facility] [id number] 2021-07-31 00:00:00 AYADI [facility] [id number] 2021-07-31 00:00:00 AYADI [facility] [id number] 2021-07-31 [id number]-31 [facility] [id number] 2021-07-31 [facility] [id number] 2021-07-31 00:00:00 [facility] Encounters Start End Encounter Admission Attending Care Care Encounter Source Date/Time Date/Time Type Type Clinicians Facility Department ID 2020-09-29 Outpatient [facility] [id number] [place] 01:03:26 [facility] 2020-09-28 Outpatient [facility] [id number] [place] 01:03:23 [facility] 2020-09-26 Outpatient [facility] [id number] [place] 01:03:59 [facility] 2021-09-09 2021-09-09 Outpatient [facility] PRIV PRIV [id number] [facility] 08:59:00 08:59:00 d_J [id number] [facility] 2021-09-06 2021-09-06 Outpatient [facility]_Tod PRIV PRIV [id number] [facility] 02:34:00 02:34:00 d_J [id number] Med[facility] l 2021-08-31 2021-08-31 Outpatient [facility]_Tod PRIV PRIV [id number] [facility] 10:18:00 10:18:00 d_J [id number] Medica l 2021-08-22 2021-08-30 Inpatient KIM Torres [facility].01 [id number] [facility] 04:47:00 20:20:00 Sky 65 [facility] are [facility] 2021-08-22 2021-08-30 Inpatient KIM Torres [facility] [id number] [facility] 04:47:00 20:20:00 Sky [id number] [facility] are [facility] 2021-08-22 2021-08-22 Outpatient JOSE DANIEL MadsenNW REF [id number] [facility] 08:19:00 08:19:00 Sky 61 [facility] are [facility] 2021-07-31 2021-08-12 Inpatient CLARE Logan HCAPM INTE [id number] [facility] 01:04:00 17:25:00 Nkoli [id number] [facility] 2021-07-31 2021-08-12 Inpatient CLARE Logan HCAPM INTE [id number] [facility] 01:04:00 17:25:00 Nkoli 20 [facility] 2021-07-31 2021-07-31 Outpatient CLARE Logan HCACL LABO [id number] [facility] 07:33:00 07:33:00 Nkoli 03 [facility] 2021-07-27 2021-07-30 Inpatient E LIZET [facility] MED [id number] [place] 12:19:00 21:29:00 LAUREN [facility] 2021-04-27 2021-04-27 Outpatient FERRACHAEL NICHOLAS [facility] [address] [place] 05:54:00 05:54:00 HN [id number] [facility] 2021-02-22 2021-02-22 Outpatient E JOSEE [facility] ECC [id number] [place] 13:37:00 16:19:00 [facility] 2020-11-19 2020-11-19 Outpatient FERRACHAEL NICHOLAS [facility] [address] [place] 02:39:00 02:39:00 HN 0820 [facility] 2017-10-04 2017-10-04 Outpatient E MARE ALLISON [facility] ECC [id number] [place] 10:52:00 12:37:00 [facility]ica [facility] [place] 2017-09-13 2017-09-21 Anup WILKES [facility] [id number] [facility] 23:35:00 16:50:00 SAYDA Medic al [place] Results Test Description Test Time Test Comments Results Result Comments Source SURGICAL 2021-08-30 10:13:00 Test Item Value Reference Range Interpretation Comme nts SURGICAL RUN (test DATE: 08/30/21 [facility] - LAB PAGE 1 RUN code = TIME: 1013 Specimen Inquiry RUN USER: INTERFACE SR) ROSANNE ENT: EMEKA JUSTIN LOC: P6S POD B U #: [id number] AGE/SX: 65/F ROOM: [facility] RE08/22/21[facility] DR: Sky Torres MD : 56 BED : 1 DIS: STATUS: ADM IN TLOC: SPEC #: [id number] PERSONNEL COORDINATOR: 08/24/21 STATUS: LENA EVANS #: [id number] CUAUHTEMOC: SUBM DR: Sky Torres MD ENTERED: 08/24/21 SP TYPE: SURGICAL OTHR DR: Chuck Pitts MD,Ghulam Thomas Jr, MD (ID) Abel Martinez MD,Kenneth Gonzalez MD, MDORDERED: [id number], [id number], ANATOMIC SPEC HISTOLOGY: TISSU E ID BLK PCS DIANN LEV / PROCEDURE DISPOSITION ____ ___ ___ ___ ___ LEG, NOS A 4 1 TISSUES: A. LEG, NOS - Right Lower Extremity FINAL DIAGNOSIS LEG AND FOOT, RIGHT, BELOW THE KNEE AMPUTATION:- Skin and soft tissue with gangrenous necrosis. - Bone and soft tissue margins are viable. GROSS DESCRIPTION Received fresh, labeled with the patient's name, date of and designated "right lowerextremity". Received i s a below the knee amputation that measures 36 cm from heel toresection site and the att ached right foot measures 24 cm long by 7.5 cm wide. The foothas all five digits attached. T he skin shows discoloration and there is a site of priorsurgery measuring 6 cm long closed t ogether by black sutures. There is skin peeling. Thetoes and the heel appear necrotic. The f oot heel has thickened skin measuring 4.5 x 3 cm. The skin margin appears viable. The specime n is submitted representatively as follows: A1- skin soft tissue margin; A2 - bone marrow scr ape (after brief decalcification); A3 - vasculature; A4 - section from lesion and necrosis. KRANTHI /ks Technical component performed at [facility] [facility] y, [facility], [address] Unless gross only, the diagnosis is based upon microscopic examination.Immunohistochemistry: Th is test was developed and its performancecharacteristics d etermined by this laboratory. It has not been approved nordoes it need approval by the [place] FDA. Appropriate positive and negative controlsare reviewed and judged to be acceptable. This labor atory is certified underthe Clinical Laboratory Improvement Amendments (CLIA-88) as qual ified toperform high complexity clinical laboratory testing. CONTINUED ON NEXT PAGE RUN DATE: 08/30/21 [facility] - LAB PAGE 2 RUN TIME: 1013 Specimen Inquiry RUN USER: INTERFACE SPEC #: [id number] PATIENT: EMEKA JUSTIN #[id number] (Continued) ------- MICROSCOPIC VINITA CRIPTION Performed. CLINICAL INFORMATION Right Leg Acute Foot Gangrene ---- Signed SIGNATURE ON Tang Crespo 08/30/21 1013 END OF REPORT COMPREHENSIVE METABOLIC [id number] 06:18:00 Test Item Value Reference Range Interpretation Comments SODIUM (test code = 139 mmol/L 136-145 N Please n ote: New NA) Reference Range May 2020 POTASSIUM (test 4.6 mmol/L 3.5-5.1 N code = K) CHLORIDE (test code 106 mmol/L 98-107 N Please n ote: New = CL) Reference Range May 2020 CARBON DIOXIDE 27 mmol/L 20-31 N Please note: New (test code = CO2) Reference Range May 2020 GLUCOSE (test code 83 mg/dL 74-106 N Please no te: New = GLU) Reference Range May 2020 BLOOD UREA NITROGEN 17 mg/dL 9-23 N Please n ote: New (test code = BUN) Reference Range May 2020 GLOMERULAR >=60 max >60 Units are FILTRATION RATE estimate mL/min mL/min/1. 73m2 The (test code = GFR) estimated glomerular filtration rate is computed usingpatient ra ce, age (>18), sex, and serum creatinin e. If anyof the ne eded data elements a re missing the Laboratory fnin ot compute an estimation of t he glomerular filtration rate . CREATININE (test 0.70 mg/dL 0.55-1.02 N Please note : New code = CREAT) Reference Rang e May 2020 TOTAL PROTEIN (test 6.4 g/dL 5.7-8.2 N Please n ote: New code = PROT) Reference Range May 2020 ALBUMIN (test code 3.6 g/dL 3.2-4.8 N Please no te: New = ALB) Reference Range May 2020 CALCIUM (test code 8.6 mg/dL 8.7-10.4 L Please no te: New = CA) Reference Range May 2020 BILIRUBIN TOTAL 0.2 mg/dL 0.3-1.2 L Please note: New (test code = BILT) Reference Range May 2020 SGOT/AST (test code 24 U/L <34 N Please n ote: New = AST) Reference Range May 2020 SGPT/ALT (test code 22 U/L 10-49 N Please n ote: New = ALT) Reference Range May 2020 ALKALINE 81 U/L 46-116 N Please note: Ne w PHOSPHATASE (test Reference Range Feb code = ALKP) 2020 CBC W/AUTO [id number] 06:00:00 Test Item Value Reference Range Interpretation Comments WHITE BLOOD CELL (test code = 8.4 x10 3/uL 4.8-10.8 N WBC) RED BLOOD CELL (test code = 2.45 x10 6/uL 4.20-5.40 L RBC) HEMOGLOBIN (test code = HGB) 7.6 g/dL 12.0-16.0 L HEMATOCRIT (test code = HCT) 23.9 % 37.0-47.0 L MEAN CELL VOLUME (test code = 97.6 fL 81.0-99.0 N MCV) MEAN CELL HGB (test code = MCH) 31.0 pg 27-31 N MEAN CELL HGB CONCENTRATION 31.8 G/DL 33-36.5 L (test code = MCHC) RED CELL DISTRIBUTION WIDTH 15.1 % 12.9-16.9 N (test code = RDW) PLATELET COUNT (test code = 383 x10 3/uL 150-440 N PLT) MEAN PLATELET VOLUME (test code 9.6 fL 8.9-12.4 N = MPV) NEUTROPHIL % (test code = NT%) 62.1 % 42.2-75.2 N LYMPHOCYTE % (test code = LY%) 23.8 % 20.5-51.1 N MONOCYTE % (test code = MO%) 9.3 % 1.7-9.3 N EOSINOPHIL % (test code = EO%) 3.8 % 0.0-7.0 N BASOPHIL % (test code = BA%) 0.4 % 0-2.5 N NEUTROPHIL # (test code = NT#) 5.21 x10 3/uL 1.80-7.70 N LYMPHOCYTE # (test code = LY#) 2.00 x10 3/uL 1.00-4.80 N MONOCYTE # (test code = MO#) 0.78 x10 3/uL 0.00-0.80 N EOSINOPHIL # (test code = EO#) 0.32 x10 3/uL 0.00-0.45 N BASOPHIL # (test code = BA#) 0.03 x10 3/uL 0.0-0.20 N COMPREHENSIVE METABOLIC [id number] 13:17:00 Test Item Value Reference Range Interpretation Comments SODIUM (test code = 135 mmol/L 136-145 L Please n ote: New NA) Reference Range May 2020 POTASSIUM (test 4.5 mmol/L 3.5-5.1 N code = K) CHLORIDE (test code 108 mmol/L 98-107 H Please n ote: New = CL) Reference Range May 2020 CARBON DIOXIDE 26 mmol/L 20-31 N Please note: New (test code = CO2) Reference Range May 2020 GLUCOSE (test code 125 mg/dL 74-106 H Please no te: New = GLU) Reference Range May 2020 BLOOD UREA NITROGEN 23 mg/dL 9-23 N Please n ote: New (test code = BUN) Reference Range May 2020 GLOMERULAR >=60 max >60 Units are FILTRATION RATE estimate mL/min mL/min/1. 73m2 The (test code = GFR) estimated glomerular filtration rate is computed usingpatient ra ce, age (>18), sex, and serum creatinin e. If anyof the ne eded data elements a re missing the Laboratory finn ot compute an estimation of t he glomerular filtration rate . CREATININE (test 0.80 mg/dL 0.55-1.02 N Please note : New code = CREAT) Reference Rang e May 2020 TOTAL PROTEIN (test 5.5 g/dL 5.7-8.2 L Please n ote: New code = PROT) Reference Range May 2020 ALBUMIN (test code 3.3 g/dL 3.2-4.8 N Please no te: New = ALB) Reference Range May 2020 CALCIUM (test code 8.5 mg/dL 8.7-10.4 L Please no te: New = CA) Reference Range May 2020 BILIRUBIN TOTAL 0.2 mg/dL 0.3-1.2 L Please note: New (test code = BILT) Reference Range May 2020 SGOT/AST (test code 27 U/L <34 N Please n ote: New = AST) Reference Range May 2020 SGPT/ALT (test code 29 U/L 10-49 N Please n ote: New = ALT) Reference Range May 2020 ALKALINE 81 U/L 46-116 N Please note: Ne w PHOSPHATASE (test Reference Range Feb code = ALKP) 2020 CBC W/AUTO [id number] 12:44:00 Test Item Value Reference Range Interpretation Comments WHITE BLOOD CELL (test code = 9.3 x10 3/uL 4.8-10.8 N WBC) RED BLOOD CELL (test code = 2.42 x10 6/uL 4.20-5.40 L RBC) HEMOGLOBIN (test code = HGB) 7.4 g/dL 12.0-16.0 L HEMATOCRIT (test code = HCT) 23.1 % 37.0-47.0 L MEAN CELL VOLUME (test code = 95.5 fL 81.0-99.0 N MCV) MEAN CELL HGB (test code = MCH) 30.6 pg 27-31 N MEAN CELL HGB CONCENTRATION 32.0 G/DL 33-36.5 L (test code = MCHC) RED CELL DISTRIBUTION WIDTH 14.9 % 12.9-16.9 N (test code = RDW) PLATELET COUNT (test code = 367 x10 3/uL 150-440 N PLT) MEAN PLATELET VOLUME (test code 9.6 fL 8.9-12.4 N = MPV) NEUTROPHIL % (test code = NT%) 68.8 % 42.2-75.2 N LYMPHOCYTE % (test code = LY%) 17.7 % 20.5-51.1 L MONOCYTE % (test code = MO%) 9.2 % 1.7-9.3 N EOSINOPHIL % (test code = EO%) 3.2 % 0.0-7.0 N BASOPHIL % (test code = BA%) 0.2 % 0-2.5 N NEUTROPHIL # (test code = NT#) 6.39 x10 3/uL 1.80-7.70 N LYMPHOCYTE # (test code = LY#) 1.65 x10 3/uL 1.00-4.80 N MONOCYTE # (test code = MO#) 0.86 x10 3/uL 0.00-0.80 H EOSINOPHIL # (test code = EO#) 0.30 x10 3/uL 0.00-0.45 N BASOPHIL # (test code = BA#) 0.02 x10 3/uL 0.0-0.20 N COMPREHENSIVE METABOLIC [id number] 06:07:00 Test Item Value Reference Range Interpretation Comments SODIUM (test code = 139 mmol/L 136-145 N Please n ote: New NA) Reference Range May 2020 POTASSIUM (test 4.5 mmol/L 3.5-5.1 N code = K) CHLORIDE (test code 109 mmol/L 98-107 H Please n ote: New = CL) Reference Range May 2020 CARBON DIOXIDE 25 mmol/L 20-31 N Please note: New (test code = CO2) Reference Range May 2020 GLUCOSE (test code 88 mg/dL 74-106 N Please no te: New = GLU) Reference Range May 2020 BLOOD UREA NITROGEN 25 mg/dL 9-23 H Please n ote: New (test code = BUN) Reference Range May 2020 GLOMERULAR >=60 max >60 Units are FILTRATION RATE estimate mL/min mL/min/1. 73m2 The (test code = GFR) estimated glomerular filtration rate is computed usingpatient ra ce, age (>18), sex, and serum creatinin e. If anyof the ne eded data elements a re missing the Laboratory finn ot compute an estimation of t he glomerular filtration rate . CREATININE (test 0.80 mg/dL 0.55-1.02 N Please note : New code = CREAT) Reference Rang e May 2020 TOTAL PROTEIN (test 6.0 g/dL 5.7-8.2 N Please n ote: New code = PROT) Reference Range May 2020 ALBUMIN (test code 3.2 g/dL 3.2-4.8 N Please no te: New = ALB) Reference Range May 2020 CALCIUM (test code 8.6 mg/dL 8.7-10.4 L Please no te: New = CA) Reference Range May 2020 BILIRUBIN TOTAL 0.2 mg/dL 0.3-1.2 L Please note: New (test code = BILT) Reference Range May 2020 SGOT/AST (test code 30 U/L <34 N Please n ote: New = AST) Reference Range May 2020 SGPT/ALT (test code 19 U/L 10-49 N Please n ote: New = ALT) Reference Range May 2020 ALKALINE 86 U/L 46-116 N Please note: Ne w PHOSPHATASE (test Reference Range Feb code = ALKP) 2020 CBC W/AUTO [id number] 05:38:00 Test Item Value Reference Range Interpretation Comments WHITE BLOOD CELL (test code = 10.2 x10 3/uL 4.8-10.8 N WBC) RED BLOOD CELL (test code = 2.53 x10 6/uL 4.20-5.40 L RBC) HEMOGLOBIN (test code = HGB) 7.6 g/dL 12.0-16.0 L HEMATOCRIT (test code = HCT) 24.1 % 37.0-47.0 L MEAN CELL VOLUME (test code = 95.3 fL 81.0-99.0 N MCV) MEAN CELL HGB (test code = MCH) 30.0 pg 27-31 N MEAN CELL HGB CONCENTRATION 31.5 G/DL 33-36.5 L (test code = MCHC) RED CELL DISTRIBUTION WIDTH 15.0 % 12.9-16.9 N (test code = RDW) PLATELET COUNT (test code = 352 x10 3/uL 150-440 N PLT) MEAN PLATELET VOLUME (test code 9.8 fL 8.9-12.4 N = MPV) NEUTROPHIL % (test code = NT%) 65.7 % 42.2-75.2 N LYMPHOCYTE % (test code = LY%) 19.4 % 20.5-51.1 L MONOCYTE % (test code = MO%) 11.0 % 1.7-9.3 H EOSINOPHIL % (test code = EO%) 2.7 % 0.0-7.0 N BASOPHIL % (test code = BA%) 0.4 % 0-2.5 N NEUTROPHIL # (test code = NT#) 6.71 x10 3/uL 1.80-7.70 N LYMPHOCYTE # (test code = LY#) 1.98 x10 3/uL 1.00-4.80 N MONOCYTE # (test code = MO#) 1.12 x10 3/uL 0.00-0.80 H EOSINOPHIL # (test code = EO#) 0.28 x10 3/uL 0.00-0.45 N BASOPHIL # (test code = BA#) 0.04 x10 3/uL 0.0-0.20 N VANCOMYCIN [id number] 14:32:00 Test Item Value Reference Range Interpretation Comments VANCOMYCIN TROUGH (test code = 5.5 mcg/dL 10.0-20.0 L VANCT) HGB [id number] 13:56:00 Test Item Value Reference Range Interpretation Comments HEMOGLOBIN (test code = HGB) 7.9 g/dL 12.0-16.0 L HEMATOCRIT (test code = HCT) 24.1 % 37.0-47.0 L CBC W/AUTO [id number] 07:15:00 Test Item Value Reference Range Interpretation Comments WHITE BLOOD CELL (test 11.6 x10 3/uL 4.8-10.8 H code = WBC) RED BLOOD CELL (test 2.11 x10 6/uL 4.20-5.40 L code = RBC) HEMOGLOBIN (test code 6.5 g/dL 12.0-16.0 LL Critic al Value = HGB) reported Rei t Name:DARRELL Last Name:GILDA KIDD READ BACK AND VERIFIEDby [id number], on 08/26/21, @ 071 4. HEMATOCRIT (test code 19.9 % 37.0-47.0 LL Critic al Value = HCT) reported Rei t Name:DARRELL Last Name:GILDA KIDD READ BACK AND VERIFIEDby [id number], on 08/26/21, @ 071 4. MEAN CELL VOLUME (test 94.3 fL 81.0-99.0 N code = MCV) MEAN CELL HGB (test 30.8 pg 27-31 N code = MCH) MEAN CELL HGB 32.7 G/DL 33-36.5 L CONCENTRATION (test code = MCHC) RED CELL DISTRIBUTION 14.0 % 12.9-16.9 N WIDTH (test code = RDW) PLATELET COUNT (test 342 x10 3/uL 150-440 N code = PLT) MEAN PLATELET VOLUME 9.5 fL 8.9-12.4 N (test code = MPV) NEUTROPHIL % (test 70.2 % 42.2-75.2 N code = NT%) LYMPHOCYTE % (test 16.3 % 20.5-51.1 L code = LY%) MONOCYTE % (test code 11.7 % 1.7-9.3 H = MO%) EOSINOPHIL % (test 0.8 % 0.0-7.0 N code = EO%) BASOPHIL % (test code 0.3 % 0-2.5 N = BA%) NEUTROPHIL # (test 8.13 x10 3/uL 1.80-7.70 H code = NT#) LYMPHOCYTE # (test 1.88 x10 3/uL 1.00-4.80 N code = LY#) MONOCYTE # (test code 1.35 x10 3/uL 0.00-0.80 H = MO#) EOSINOPHIL # (test 0.09 x10 3/uL 0.00-0.45 N code = EO#) BASOPHIL # (test code 0.03 x10 3/uL 0.0-0.20 N = BA#) RECOLLECT-QUESTIONABLE RESULTSCOMPREHENSIVE METABOLIC [id number] 06:31:00 Test Item Value Reference Range Interpretation Comments SODIUM (test code = 137 mmol/L 136-145 N Please n ote: New NA) Reference Range May 2020 POTASSIUM (test 3.9 mmol/L 3.5-5.1 N code = K) CHLORIDE (test code 106 mmol/L 98-107 N Please n ote: New = CL) Reference Range May 2020 CARBON DIOXIDE 25 mmol/L 20-31 N Please note: New (test code = CO2) Reference Range May 2020 GLUCOSE (test code 92 mg/dL 74-106 N Please no te: New = GLU) Reference Range May 2020 BLOOD UREA NITROGEN 19 mg/dL 9-23 N Please n ote: New (test code = BUN) Reference Range May 2020 GLOMERULAR >=60 max >60 Units are FILTRATION RATE estimate mL/min mL/min/1. 73m2 The (test code = GFR) estimated glomerular filtration rate is computed usingpatient ra ce, age (>18), sex, and serum creatinin e. If anyof the ne eded data elements a re missing the Laboratory finn ot compute an estimation of t he glomerular filtration rate . CREATININE (test 0.80 mg/dL 0.55-1.02 N Please note : New code = CREAT) Reference Rang e May 2020 TOTAL PROTEIN (test 6.3 g/dL 5.7-8.2 N Please n ote: New code = PROT) Reference Range May 2020 ALBUMIN (test code 3.4 g/dL 3.2-4.8 N Please no te: New = ALB) Reference Range May 2020 CALCIUM (test code 8.0 mg/dL 8.7-10.4 L Please no te: New = CA) Reference Range May 2020 BILIRUBIN TOTAL 0.2 mg/dL 0.3-1.2 L Please note: New (test code = BILT) Reference Range May 2020 SGOT/AST (test code 31 U/L <34 N Please n ote: New = AST) Reference Range May 2020 SGPT/ALT (test code 21 U/L 10-49 N Please n ote: New = ALT) Reference Range May 2020 ALKALINE 98 U/L 46-116 N Please note: Ne w PHOSPHATASE (test Reference Range Feb code = ALKP) 2020 RENAL FUNCTION [id number] 06:31:00 Test Item Value Reference Range Interpretation Comments PHOSPHOROUS (test code 3.2 mg/dL 2.4-5.1 N Pleas e note: New = PHOS) Reference Range May 2020 HGB [id number] 09:14:00 Test Item Value Reference Range Interpretation Comments HEMOGLOBIN (test code = HGB) 7.9 g/dL 12.0-16.0 L HEMATOCRIT (test code = HCT) 24.7 % 37.0-47.0 L COMPREHENSIVE METABOLIC [id number] 06:09:00 Test Item Value Reference Range Interpretation Comments SODIUM (test code = 136 mmol/L 136-145 N Please n ote: New NA) Reference Range May 2020 POTASSIUM (test 3.8 mmol/L 3.5-5.1 N code = K) CHLORIDE (test code 105 mmol/L 98-107 N Please n ote: New = CL) Reference Range May 2020 CARBON DIOXIDE 22 mmol/L 20-31 N Please note: New (test code = CO2) Reference Range May 2020 GLUCOSE (test code 106 mg/dL 74-106 N Please no te: New = GLU) Reference Range May 2020 BLOOD UREA NITROGEN 10 mg/dL 9-23 N Please n ote: New (test code = BUN) Reference Range May 2020 GLOMERULAR >=60 max >60 Units are FILTRATION RATE estimate mL/min mL/min/1. 73m2 The (test code = GFR) estimated glomerular filtration rate is computed usingpatient ra ce, age (>18), sex, and serum creatinin e. If anyof the ne eded data elements a re missing the Laboratory finn ot compute an estimation of t he glomerular filtration rate . CREATININE (test 0.60 mg/dL 0.55-1.02 N Please note : New code = CREAT) Reference Rang e May 2020 TOTAL PROTEIN (test 6.5 g/dL 5.7-8.2 N Please n ote: New code = PROT) Reference Range May 2020 ALBUMIN (test code 3.5 g/dL 3.2-4.8 N Please no te: New = ALB) Reference Range May 2020 CALCIUM (test code 8.5 mg/dL 8.7-10.4 L Please no te: New = CA) Reference Range May 2020 BILIRUBIN TOTAL 0.4 mg/dL 0.3-1.2 N Please note: New (test code = BILT) Reference Range May 2020 SGOT/AST (test code 31 U/L <34 N Please n ote: New = AST) Reference Range May 2020 SGPT/ALT (test code 20 U/L 10-49 N Please n ote: New = ALT) Reference Range May 2020 ALKALINE 118 U/L 46-116 H Please note: Ne w PHOSPHATASE (test Reference Range Feb code = ALKP) 2020 CBC W/AUTO [id number] 05:36:00 Test Item Value Reference Range Interpretation Comments WHITE BLOOD CELL (test code = 12.1 x10 3/uL 4.8-10.8 H WBC) RED BLOOD CELL (test code = 2.29 x10 6/uL 4.20-5.40 L RBC) HEMOGLOBIN (test code = HGB) 7.0 g/dL 12.0-16.0 L HEMATOCRIT (test code = HCT) 21.7 % 37.0-47.0 L MEAN CELL VOLUME (test code = 94.8 fL 81.0-99.0 N MCV) MEAN CELL HGB (test code = MCH) 30.6 pg 27-31 N MEAN CELL HGB CONCENTRATION 32.3 G/DL 33-36.5 L (test code = MCHC) RED CELL DISTRIBUTION WIDTH 14.2 % 12.9-16.9 N (test code = RDW) PLATELET COUNT (test code = 385 x10 3/uL 150-440 N PLT) MEAN PLATELET VOLUME (test code 9.6 fL 8.9-12.4 N = MPV) NEUTROPHIL % (test code = NT%) 76.8 % 42.2-75.2 H LYMPHOCYTE % (test code = LY%) 12.8 % 20.5-51.1 L MONOCYTE % (test code = MO%) 9.4 % 1.7-9.3 H EOSINOPHIL % (test code = EO%) 0.2 % 0.0-7.0 N BASOPHIL % (test code = BA%) 0.2 % 0-2.5 N NEUTROPHIL # (test code = NT#) 9.29 x10 3/uL 1.80-7.70 H LYMPHOCYTE # (test code = LY#) 1.55 x10 3/uL 1.00-4.80 N MONOCYTE # (test code = MO#) 1.14 x10 3/uL 0.00-0.80 H EOSINOPHIL # (test code = EO#) 0.02 x10 3/uL 0.00-0.45 N BASOPHIL # (test code = BA#) 0.03 x10 3/uL 0.0-0.20 N COMPREHENSIVE METABOLIC [id number] 06:08:00 Test Item Value Reference Range Interpretation Comments SODIUM (test code = 137 mmol/L 136-145 N Please n ote: New NA) Reference Range May 2020 POTASSIUM (test 4.4 mmol/L 3.5-5.1 N code = K) CHLORIDE (test code 107 mmol/L 98-107 N Please n ote: New = CL) Reference Range May 2020 CARBON DIOXIDE 24 mmol/L 20-31 N Please note: New (test code = CO2) Reference Range May 2020 GLUCOSE (test code 89 mg/dL 74-106 N Please no te: New = GLU) Reference Range May 2020 BLOOD UREA NITROGEN 17 mg/dL 9-23 N Please n ote: New (test code = BUN) Reference Range May 2020 GLOMERULAR >=60 max >60 Units are FILTRATION RATE estimate mL/min mL/min/1. 73m2 The (test code = GFR) estimated glomerular filtration rate is computed usingpatient ra ce, age (>18), sex, and serum creatinin e. If anyof the ne eded data elements a re missing the Laboratory finn ot compute an estimation of t he glomerular filtration rate . CREATININE (test 0.70 mg/dL 0.55-1.02 N Please note : New code = CREAT) Reference Rang e May 2020 TOTAL PROTEIN (test 6.8 g/dL 5.7-8.2 N Please n ote: New code = PROT) Reference Range May 2020 ALBUMIN (test code 3.6 g/dL 3.2-4.8 N Please no te: New = ALB) Reference Range May 2020 CALCIUM (test code 9.0 mg/dL 8.7-10.4 N Please no te: New = CA) Reference Range May 2020 BILIRUBIN TOTAL 0.3 mg/dL 0.3-1.2 N Please note: New (test code = BILT) Reference Range May 2020 SGOT/AST (test code 26 U/L <34 N Please n ote: New = AST) Reference Range May 2020 SGPT/ALT (test code 23 U/L 10-49 N Please n ote: New = ALT) Reference Range May 2020 ALKALINE 134 U/L 46-116 H Please note: Ne w PHOSPHATASE (test Reference Range Feb code = ALKP) 2020 VANCOMYCIN [id number] 05:57:00 Test Item Value Reference Range Interpretation Comments VANCOMYCIN TROUGH (test code = 21.1 mcg/dL 10.0-20.0 H VANCT) CBC W/AUTO [id number] 05:39:00 Test Item Value Reference Range Interpretation Comments WHITE BLOOD CELL (test code = 10.1 x10 3/uL 4.8-10.8 N WBC) RED BLOOD CELL (test code = 2.50 x10 6/uL 4.20-5.40 L RBC) HEMOGLOBIN (test code = HGB) 7.7 g/dL 12.0-16.0 L HEMATOCRIT (test code = HCT) 23.8 % 37.0-47.0 L MEAN CELL VOLUME (test code = 95.2 fL 81.0-99.0 N MCV) MEAN CELL HGB (test code = MCH) 30.8 pg 27-31 N MEAN CELL HGB CONCENTRATION 32.4 G/DL 33-36.5 L (test code = MCHC) RED CELL DISTRIBUTION WIDTH 14.0 % 12.9-16.9 N (test code = RDW) PLATELET COUNT (test code = 393 x10 3/uL 150-440 N PLT) MEAN PLATELET VOLUME (test code 9.5 fL 8.9-12.4 N = MPV) NEUTROPHIL % (test code = NT%) 66.9 % 42.2-75.2 N LYMPHOCYTE % (test code = LY%) 19.2 % 20.5-51.1 L MONOCYTE % (test code = MO%) 10.7 % 1.7-9.3 H EOSINOPHIL % (test code = EO%) 2.2 % 0.0-7.0 N BASOPHIL % (test code = BA%) 0.3 % 0-2.5 N NEUTROPHIL # (test code = NT#) 6.76 x10 3/uL 1.80-7.70 N LYMPHOCYTE # (test code = LY#) 1.94 x10 3/uL 1.00-4.80 N MONOCYTE # (test code = MO#) 1.08 x10 3/uL 0.00-0.80 H EOSINOPHIL # (test code = EO#) 0.22 x10 3/uL 0.00-0.45 N BASOPHIL # (test code = BA#) 0.03 x10 3/uL 0.0-0.20 N COMPREHENSIVE METABOLIC [id number] 06:38:00 Test Item Value Reference Range Interpretation Comments SODIUM (test code = 138 mmol/L 136-145 N Please n ote: New NA) Reference Range May 2020 POTASSIUM (test 4.6 mmol/L 3.5-5.1 N code = K) CHLORIDE (test code 104 mmol/L 98-107 N Please n ote: New = CL) Reference Range May 2020 CARBON DIOXIDE 27 mmol/L 20-31 N Please note: New (test code = CO2) Reference Range May 2020 GLUCOSE (test code 93 mg/dL 74-106 N Please no te: New = GLU) Reference Range May 2020 BLOOD UREA NITROGEN 24 mg/dL 9-23 H Please n ote: New (test code = BUN) Reference Range May 2020 GLOMERULAR >=60 max >60 Units are FILTRATION RATE estimate mL/min mL/min/1. 73m2 The (test code = GFR) estimated glomerular filtration rate is computed usingpatient ra ce, age (>18), sex, and serum creatinin e. If anyof the ne eded data elements a re missing the Laboratory finn ot compute an estimation of t he glomerular filtration rate . CREATININE (test 0.80 mg/dL 0.55-1.02 N Please note : New code = CREAT) Reference Rang e May 2020 TOTAL PROTEIN (test 6.2 g/dL 5.7-8.2 N Please n ote: New code = PROT) Reference Range May 2020 ALBUMIN (test code 3.5 g/dL 3.2-4.8 N Please no te: New = ALB) Reference Range May 2020 CALCIUM (test code 8.9 mg/dL 8.7-10.4 N Please no te: New = CA) Reference Range May 2020 BILIRUBIN TOTAL 0.3 mg/dL 0.3-1.2 N Please note: New (test code = BILT) Reference Range May 2020 SGOT/AST (test code 26 U/L <34 N Please n ote: New = AST) Reference Range May 2020 SGPT/ALT (test code 24 U/L 10-49 N Please n ote: New = ALT) Reference Range May 2020 ALKALINE 136 U/L 46-116 H Please note: Ne w PHOSPHATASE (test Reference Range Feb code = ALKP) 2020 RENAL FUNCTION [id number] 06:38:00 Test Item Value Reference Range Interpretation Comments PHOSPHOROUS (test code 3.8 mg/dL 2.4-5.1 N Pleas e note: New = PHOS) Reference Range May 2020 CBC W/AUTO [id number] 06:10:00 Test Item Value Reference Range Interpretation Comments WHITE BLOOD CELL (test code = 10.3 x10 3/uL 4.8-10.8 N WBC) RED BLOOD CELL (test code = 2.66 x10 6/uL 4.20-5.40 L RBC) HEMOGLOBIN (test code = HGB) 8.3 g/dL 12.0-16.0 L HEMATOCRIT (test code = HCT) 25.5 % 37.0-47.0 L MEAN CELL VOLUME (test code = 95.9 fL 81.0-99.0 N MCV) MEAN CELL HGB (test code = MCH) 31.2 pg 27-31 H MEAN CELL HGB CONCENTRATION 32.5 G/DL 33-36.5 L (test code = MCHC) RED CELL DISTRIBUTION WIDTH 14.1 % 12.9-16.9 N (test code = RDW) PLATELET COUNT (test code = 404 x10 3/uL 150-440 N PLT) MEAN PLATELET VOLUME (test code 9.2 fL 8.9-12.4 N = MPV) NEUTROPHIL % (test code = NT%) 72.9 % 42.2-75.2 N LYMPHOCYTE % (test code = LY%) 14.0 % 20.5-51.1 L MONOCYTE % (test code = MO%) 10.7 % 1.7-9.3 H EOSINOPHIL % (test code = EO%) 1.4 % 0.0-7.0 N BASOPHIL % (test code = BA%) 0.3 % 0-2.5 N NEUTROPHIL # (test code = NT#) 7.48 x10 3/uL 1.80-7.70 N LYMPHOCYTE # (test code = LY#) 1.43 x10 3/uL 1.00-4.80 N MONOCYTE # (test code = MO#) 1.10 x10 3/uL 0.00-0.80 H EOSINOPHIL # (test code = EO#) 0.14 x10 3/uL 0.00-0.45 N BASOPHIL # (test code = BA#) 0.03 x10 3/uL 0.0-0.20 N COMPREHENSIVE METABOLIC [id number] 08:59:00 Test Item Value Reference Range Interpretation Comments SODIUM (test code = 136 mmol/L 136-145 N Please n ote: New NA) Reference Range May 2020 POTASSIUM (test 4.4 mmol/L 3.5-5.1 N code = K) CHLORIDE (test code 103 mmol/L 98-107 N Please n ote: New = CL) Reference Range May 2020 CARBON DIOXIDE 27 mmol/L 20-31 N Please note: New (test code = CO2) Reference Range May 2020 GLUCOSE (test code 96 mg/dL 74-106 N Please no te: New = GLU) Reference Range May 2020 BLOOD UREA NITROGEN 28 mg/dL 9-23 H Please n ote: New (test code = BUN) Reference Range May 2020 GLOMERULAR >=60 max >60 Units are FILTRATION RATE estimate mL/min mL/min/1. 73m2 The (test code = GFR) estimated glomerular filtration rate is computed usingpatient ra ce, age (>18), sex, and serum creatinin e. If anyof the ne eded data elements a re missing the Laboratory finn ot compute an estimation of t he glomerular filtration rate . CREATININE (test 0.80 mg/dL 0.55-1.02 N Please note : New code = CREAT) Reference Rang e May 2020 TOTAL PROTEIN (test 6.7 g/dL 5.7-8.2 N Please n ote: New code = PROT) Reference Range May 2020 ALBUMIN (test code 3.8 g/dL 3.2-4.8 N Please no te: New = ALB) Reference Range May 2020 CALCIUM (test code 8.7 mg/dL 8.7-10.4 N Please no te: New = CA) Reference Range May 2020 BILIRUBIN TOTAL 0.4 mg/dL 0.3-1.2 N Please note: New (test code = BILT) Reference Range May 2020 SGOT/AST (test code 22 U/L <34 N Please n ote: New = AST) Reference Range May 2020 SGPT/ALT (test code 21 U/L 10-49 N Please n ote: New = ALT) Reference Range May 2020 ALKALINE 142 U/L 46-116 H Please note: Ne w PHOSPHATASE (test Reference Range Feb code = ALKP) 2020 LIPID PROFILE (CORONARY RISK)2021-08-22 08:59:00 Test Item Value Reference Range Interpretation Comments TRIGLYCERIDES (test 90 mg/dL <150 N Please n ote: New code = TRIG) Reference Range May 2020 CHOLESTEROL (test code 178 mg/dL <200 N Pleas e note: New = CHOL) Reference Range May 2020 HDL CHOLESTEROL (test 52 mg/dL <60 N Please note: New code = HDL) Reference Range May 2020 LIPOPROTEIN LDL (test 106 mg/dL <100 H INTERP RETATIVE code = LDLC) DATA:LDL Choles terol: Reference RangesOptimal: <100 mg/dLNear Optim al: 100 -129 mg/dLBorde rline High: 130 - 15 9 mg/dLHigh: 160 - 189 mg/dLVery High: = or > 190 mg/dL CORONARY RISK FACTOR 3.42 (test code = RISK) CHOL/HDL RISK MALE: 1/2 AVG 3.43 FEMALE: 1/2 AV G 3.27 AVG 4.97 AVG 4.44 2X AVG 9.55 2X AVG 7.05 3X AVG 23.39 3X AVG 11.04~~~~~~~~~~ ~~~~~~~ ~~~~~~~~~~~~~~~ ~~~~~~~ ~~~~~~~~~~~~~~~ ~~~~~~N ational Cholest shubham Education (NCEP ) Guidelines:~~~~ ~~~~~~~ ~~~~~~~~~~~~~~~ ~~~~~~~ ~~~~~~~~~~~~~~~ ~~~~~~~ ~~~~~ HDL Cholesterol<4 0mg/dL: HDL Cholesterol (Major risk factor for CHD)>60mg/dL: H DL Cholesterol (Ne gative risk factor for CHD)40-59mg/dL: Borderline Risk L DL Cholesterol<1 00mg/dL : Desirable LDL -C [id number] 0-159mg /dL: Borderline High Risk LDL-C [id number] 0-189mg /dL: High risk LDL-C concentration H DL-LDL Cholesterol is affected by a n umber of factors such as smoking, age an d sex.~~~~~~~~~~~ ~~~~~~~ ~~~~~~~~~~~~~~~ ~~~~~~~ ~~~~~~~~~~~~~~~ ~~~~~ LIVER FUNCTION [id number] 08:59:00 Test Item Value Reference Range Interpretation Comments BILIRUBIN DIRECT (test 0.1 mg/dL <0.3 N Pleas e note: New code = BILD) Reference Range May 2020 [id number] 08:59:00 Test Item Value Reference Range Interpretation Comments PHOSPHOROUS (test code 3.1 mg/dL 2.4-5.1 N Pleas e note: New = PHOS) Reference Range May 2020 URIC [id number] 08:59:00 Test Item Value Reference Range Interpretation Comments URIC ACID (test code 4.0 mg/dL 3.1-7.8 N Please note: New = URIC) Reference Range May 2020 CREATINE KINASE (CK)2021-08-22 08:59:00 Test Item Value Reference Range Interpretation Comments CREATINE KINASE (CK) 218 U/L 34-171 H Please note: New (test code = CK) Reference R azra May 2020 [id number] 08:59:00 Test Item Value Reference Range Interpretation Comments LIPASE (test code = 29 U/L 12-53 N Please n ote: New LIP) Reference Range May 2020 [id number] 08:59:00 Test Item Value Reference Range Interpretation Comments MAGNESIUM (test code = 1.9 mg/dL 1.6-2.6 N Pleas e note: New MAG) Reference Range May 2020 T3 [id number] 08:59:00 Test Item Value Reference Range Interpretation Comments T3 FREE (test code 2.95 pg/mL 3.0-4.7 L Please no te: New = T3F) Reference Range May 2020 T4 [id number] 08:59:00 Test Item Value Reference Range Interpretation Comments T4 FREE (test code 0.80 ng/dL 0.89-1.76 L Please no te: New = T4F) Reference Range May 2020 THYROID STIMULATING [id number] 08:59:00 Test Item Value Reference Range Interpretation Comments THYROID STIMULATING 1.55 mIU/mL 0.55-4.78 N Please n ote: New HORMONE (test code = Referen ce Range May TSH) 2020 VITAMIN [id number] 08:53:00 Test Item Value Reference Range Interpretation Comments VITAMIN B12 (test 674 pg/mL 211-911 N Please not e: New code = VITB12) Reference Ran ge May 2020 B-TYPE NATRIURETIC [id number] 08:49:00 Test Item Value Reference Range Interpretation Comments B-TYPE NATRIURETIC PEPTIDE (test 71 pg/mL <100 N code = BNP) HGBA1C - GLYCOSYLATED [id number] 08:47:00 Test Item Value Reference Range Interpretation Comments GLYCOSYLATED HEMOGLOBIN 5.4 % <5.7 N Diab etic >/= (HA1C) (test code = 6.5%Pred iabetes GLYHGB) 5.7-6.4%Normal < 5.7% CBC W/O [id number] 08:43:00 Test Item Value Reference Range Interpretation Comments WHITE BLOOD CELL (test code = 11.3 x10 3/uL 4.8-10.8 H WBC) RED BLOOD CELL (test code = 2.84 x10 6/uL 4.20-5.40 L RBC) HEMOGLOBIN (test code = HGB) 8.9 g/dL 12.0-16.0 L HEMATOCRIT (test code = HCT) 26.8 % 37.0-47.0 L MEAN CELL VOLUME (test code = 94.4 fL 81.0-99.0 N MCV) MEAN CELL HGB (test code = MCH) 31.3 pg 27-31 H MEAN CELL HGB CONCENTRATION 33.2 G/DL 33-36.5 N (test code = MCHC) RED CELL DISTRIBUTION WIDTH 13.9 % 12.9-16.9 N (test code = RDW) PLATELET COUNT (test code = 474 x10 3/uL 150-440 H PLT) LACTIC [id number] 08:42:00 Test Item Value Reference Range Interpretation Comments LACTIC ACID (test code = LACT) 0.50 mmol/L 0.5-2.0 N - XR CHEST 1 [id number] 08:33:00 [facility] 1955 Sex: FPatient Name: EMEKA JUSTIN Unit No: [id number] EXAMS: CPT CODE: [id number] XR CHEST 1 V 85900 EXAMINATION: - XR CHEST 1 V. LOCATION: S17. HISTORY: Cough, right lower limb ischemia. COMPARISON: None. FINDINGS: Examination is limited due to portable technique and low lung volumes. Cardiac silhouette/Mediastinal contour: Prominence of cardiac silhouette. Atherosclerotic calcification of aortic arch. Lungs: No focal consolidation. No large pleural effusion. Osseous Structures: Degenerative changes of thoracic spine, including both shoulders. IMPRESSION: No focal consolidation. at 0833 Reported and signed by: NEMESIO BLEVINS M.D. CC: Abel Martinez MD; Sky Torres MD Technologist: Justin Florez Time: DAP (Gy m2): Air Kerma (mGy): Trscr Dt/Tm: 08/22/2021 (0833) by:[email or web address] Printed Date/Time: 08/22/2021 (0836) Name:EMEKA JUSTIN [facility] Phys: [id number] - Sky Torres MD [address] : 1955 Age: 65 Sex: [place] [address] [id number] Loc: PALLAVI Mcintosh Exam Date: 08/22/2021 Status: ADM IN PH: FAX: PAGE 1 Signed Report [id number] 08:32:00 Test Item Value Reference Range Interpretation Comments AMMONIA (test code = AMM) < 10 mcmol/L 11-32 L [id number] 08:30:00 Test Item Value Reference Range Interpretation Comments TROPONIN-I (test 8.5 pg/mL 27.36-66.23 L Please note : Units and code = TROPI) Reference Rang e have changedFeb 3, 2 021 PROTHROMBIN [id number] 08:26:00 Test Item Value Reference Range Interpretation Comments PROTHROMBIN TIME 15.6 SECONDS 10.3-12.9 H PATIENT (test code = PTP) INTERNATIONAL 1.36 INR UNIT 0.9-1.11 H The INR is us eful only NORMAL RATIO (test for monit oring code = INR) anticoagulant therapy.It may be unreliable in t he initial phase o f antigoagulation and in unstable patien ts. Indication for Anticoagulation Recommend ed INR 1. Prevention o f venous thomboembolism 2.0-3.0in high -risk patients; treat ment of venousthrombosi s and pulmonary embol ism aftera course o f heparin; preven tion of systemicembolis m in a variety of cond itions, including atria l fibrillation an d prothetic tissu e heart valves, 2. Pros thetic mechanical hear t valves; 2.5-3.5recurren t systemic emboli sm. COVID 19 INHOUSE [id number] 13:20:00 Test Item Value Reference Range Interpretation Comments COVID 19 INHOUSE AG NEGATIVE Negative Per manu facturer, (test code = negative result s should [id number]) be treated aspr esumptive and, if inconsi [...] nicalsigns and symptoms co nsistent with COVID-19. CBC W/AUTO [id number] 07:52:00 Test Item Value Reference Range Interpretation [...] NT WITH AUTO DIFFERENTI AL. COMPREHENSIVE METABOLIC [id number] 10:17:00 Test Item Value Reference Range Interpretation [...] TOTAL (test code = ALKP) CBC W/AUTO [id number] 06:29:00 Test Item Value Reference Range Interpretation [...] NO DIFF/SCN CRITERIA = MDIFF) CBC W/AUTO [id number] 07:34:00 Test Item Value Reference Range Interpretation [...] NO DIFF/SCN CRITERIA = MDIFF) CBC W/AUTO [id number] 05:17:00 Test Item Value Reference Range Interpretation [...] NO DIFF/SCN CRITERIA = MDIFF) CBC W/AUTO [id number] 06:57:00 Test Item Value Reference Range Interpretation [...] NT WITH AUTO DIFFERENTI AL. THROMBOPLASTIN TIME [id number] 06:02:00 Test Item Value Reference Range Interpretation Comments THROMBOPLASTIN TIME PARTIAL 35.2 SECONDS 26-35 H (test code = PTT) CBC W/AUTO [id number] 08:17:00 Test Item Value Reference Range Interpretation [...] NO DIFF/SCN CRITERIA = MDIFF) BASIC METABOLIC [id number] 06:46:00 Test Item Value Reference Range Interpretation [...] CA) 8.7 MG/DL 8.5-10.1 N THROMBOPLASTIN TIME [id number] 06:44:00 Test Item Value Reference Range Interpretation Comments THROMBOPLASTIN TIME PARTIAL 32.9 SECONDS 26-35 N (test code = PTT) CBC W/AUTO [id number] 23:06:00 Test Item Value Reference Range Interpretation [...] code YES DIFF/SCN CRITERIA = MDIFF) WBC [id number] 23:06:00 Test Item Value Reference Range Interpretation [...] (test NORMAL code = PLTMORPH) THROMBOPLASTIN TIME [id number] 14:56:00 Test Item Value Reference Range Interpretation Comments THROMBOPLASTIN TIME PARTIAL 39.7 SECONDS 26-35 H (test code = PTT) BASIC METABOLIC [id number] 05:54:00 Test Item Value Reference Range Interpretation [...] CA) 7.9 MG/DL 8.5-10.1 L THROMBOPLASTIN TIME [id number] 05:48:00 Test Item Value Reference Range Interpretation Comments THROMBOPLASTIN TIME PARTIAL 40.7 SECONDS 26-35 H (test code = PTT) THROMBOPLASTIN TIME [id number] 23:23:00 Test Item Value Reference Range Interpretation Comments THROMBOPLASTIN TIME PARTIAL 50.9 SECONDS 26-35 H (test code = PTT) THROMBOPLASTIN TIME [id number] 16:51:00 Test Item Value Reference Range Interpretation Comments THROMBOPLASTIN TIME PARTIAL 45.1 SECONDS 26-35 H (test code = PTT) COAGULATION TIME [id number] 10:50:00 Test Item Value Reference Range Interpretation Comments COAGULATION TIME ACTIVATED (test 267 SECistat 74-125 H code = ACT) COAGULATION TIME [id number] 10:50:00 Test Item Value Reference Range Interpretation Comments COAGULATION TIME ACTIVATED (test 258 SECistat 74-125 H code = ACT) COAGULATION TIME [id number] 10:50:00 Test Item Value Reference Range Interpretation Comments COAGULATION TIME ACTIVATED (test 160 SECistat 74-125 H code = ACT) CBC W/AUTO [id number] 10:26:00 Test Item Value Reference Range Interpretation [...] CRITERIA = MDIFF) - XR FLUOROSCOPY 0-60 [id number] 08:25:00 [facility] 1955 Sex: F Name: EMEKA JUSTIN [facility] : 1955 Age/S: 65 / F [id number] Unit #: [id number] Loc: [place] [address] Phys: Yesy Logan MD Acct: [id number] Dis Date: Status: ADM IN PHONE #: [phone] Exam Date: 08/03/2021 1815 FAX #: Reason: THROMBECTOMY EXAMS: CPT: [id number] XR FLUOROSCOPY 0-60 MIN 37800 Fluoro Time: 161 SEC DAP (Gy m2): [...] PAGE 1 Signed Report Name: EMEKA JUSTIN [facility] : 1955 Age/S: 65 / F [id number] [place] [address] Unit #: [id number] Loc: [place] [address] Phys: Yesy Logan MD Acct: [id number] Dis Date: Status: ADM IN PHONE #: [phone] Exam Date: 08/03/20211814 FAX #: Reason: THROMBECTOMY EXAMS: CPT: [id number] XR FLUOROSCOPY 0-60 MIN 19116 Fluoro Time: 161 SEC DAP (Gy m2): Air Kerma (mGy): <Continued> Technologist: Delfina Barone RT(R)(CT) Trnscb Date/Time: 08/04/2021 (08) [email or web address] Orig Print D/T: S: 08/04/2021 (0828) PAGE 2 SignedReportBASIC METABOLIC [id number] 06:26:00 Test Item Value Reference Range Interpretation [...] CA) 8.5 MG/DL 8.5-10.1 N THROMBOPLASTIN TIME [id number] 06:22:00 Test Item Value Reference Range Interpretation Comments THROMBOPLASTIN TIME PARTIAL 43.7 SECONDS 26-35 H (test code = PTT) THROMBOPLASTIN TIME [id number] 23:20:00 Test Item Value Reference Range Interpretation Comments THROMBOPLASTIN TIME PARTIAL 116.7 SECONDS 26-35 HH (test code = PTT) CBC W/AUTO [id number] 22:03:00 Test Item Value Reference Range Interpretation [...] DONE WITHIN THE LAST 24 HOURSTHROMBOPLASTIN TIME [id number] 12:20:00 Test Item Value Reference Range Interpretation Comments THROMBOPLASTIN TIME PARTIAL 68.7 SECONDS 26-35 H (test code = PTT) CBC W/AUTO [id number] 08:45:00 Test Item Value Reference Range Interpretation [...] NO DIFF/SCN CRITERIA = MDIFF) BASIC METABOLIC [id number] 06:35:00 Test Item Value Reference Range Interpretation [...] CA) 9.2 MG/DL 8.5-10.1 N THROMBOPLASTIN TIME [id number] 06:27:00 Test Item Value Reference Range Interpretation Comments THROMBOPLASTIN TIME PARTIAL 64.9 SECONDS 26-35 H (test code = PTT) THROMBOPLASTIN TIME [id number] 01:04:00 Test Item Value Reference Range Interpretation Comments THROMBOPLASTIN TIME PARTIAL 62.9 SECONDS 26-35 H (test code = PTT) - XR CHEST 1 [id number] 21:09:00 [facility] 1955 Sex: F Name: EMEKA JUSTIN [facility] : 1955 Age/S: 65 / F [address] #: [id number] Loc: [place] [address] Phys: Glenny Alberts MD Acct: [id number] Dis Date: Status: ADM IN PHONE #: [phone] Exam Date: 08/02/20212054 FAX #: Reason: Post Op EXAMS: CPT: [id number] XR CHEST 1 V 36160 Fluoro Time: DAP (Gy m2): Air Kerma (mGy): HISTORY: Shortness of breath TECHNIQUE: AP chest x-ray COMPARISON: 07/31/21 FINDINGS: Low lung volumes. No pneumothorax. No airspace consolidation or pleural effusion. Elevated r ight hemidiaphragm. Mild cardiomegaly. Mediastinal silhouette is unremarkable. Thoracic spondylosis. IMPRESSION: No radiographic evidence of acute cardiopulmonary process. LOCATION: [facility] [address] Reported and signed by:HERACLIO GAMBOA DO CC: Glenny Alberts MD; Yesy Logan MD; Abel Martinez MD PAGE 1 Signed Report Name: [facility] : 1955 Age/S: 65 / F [id number]#: [id number] Loc: [place] [address] Phys: Glenny Alberts MD Acct: [id number] Dis Date: Status: ADM IN PHONE #: [phone] Exam Date: 08/02/20212054 FAX #: Reason: Post Op EXAMS: CPT: [id number] XR CHEST 1 V 74350 Fluoro Time: DAP (Gy m2): Air Kerma (mGy): <Continued> Technologist: Lebron Alvarado, RT(R) Trnscb Date/Time: 08/02/2021 (2108) [id number] Orig Print D/T: S: 08/02/2021 (2111) PAGE 2 Signed [id number] 19:58:00 Test Item Value Reference Range Interpretation Comments HEMATOCRIT (test code = HCT) 39.2 % 31.5-44.1 N PLATELET [id number] 19:58:00 Test Item Value Reference Range Interpretation Comments PLATELET COUNT (test code = PLT) 167 K/mm3 150-450 N THROMBOPLASTIN TIME [id number] 19:53:00 Test Item Value Reference Range Interpretation Comments THROMBOPLASTIN TIME PARTIAL 38.9 SECONDS 26-35 H (test code = PTT) COMPREHENSIVE METABOLIC [id number] 13:21:00 Test Item Value Reference Range Interpretation [...] TOTAL (test code = ALKP) THROMBOPLASTIN TIME [id number] 12:49:00 Test Item Value Reference Range Interpretation Comments THROMBOPLASTIN TIME PARTIAL 33.7 SECONDS 26-35 N (test code = PTT) [id number] 12:49:00 Test Item Value Reference Range Interpretation Comments FIBRINOGEN (test code = FIB) 612 mg/dL 185-453 H CBC W/AUTO [id number] 10:38:00 Test Item Value Reference Range Interpretation [...] Comment: q6hr labs while lysis ongoingCBC W/AUTO [id number] 05:57:00 Test Item Value Reference Range Interpretation [...] NT WITH AUTO DIFFERENTI AL. THROMBOPLASTIN TIME [id number] 05:19:00 Test Item Value Reference Range Interpretation Comments THROMBOPLASTIN TIME PARTIAL 36.2 SECONDS 26-35 H (test code = PTT) [id number] 05:19:00 Test Item Value Reference Range Interpretation Comments FIBRINOGEN (test code = FIB) 743 mg/dL 185-453 H BASIC METABOLIC [id number] 05:17:00 Test Item Value Reference Range Interpretation [...] CA) 9.1 MG/DL 8.5-10.1 N CBC W/AUTO [id number] 04:41:00 Test Item Value Reference Range Interpretation [...] NT WITH AUTO DIFFERENTI AL. THROMBOPLASTIN TIME [id number] 02:21:00 Test Item Value Reference Range Interpretation Comments THROMBOPLASTIN TIME PARTIAL 34.9 SECONDS 26-35 N (test code = PTT) [id number] 02:21:00 Test Item Value Reference Range Interpretation Comments FIBRINOGEN (test code = FIB) 634 mg/dL 185-453 H CBC W/AUTO [id number] 23:38:00 Test Item Value Reference Interpretation Comments Range WHITE BLOOD CELL TEST NOT 3.5-11.0 H DUPLICATEPr eviously (test code = WBC) PERFORMED reported r esult: 12.0 K/mm3 K/cn4Dfhiiu by: AnaSI7 on 08/01/21:2330~~ ~~~~~~~~~ ~~~~~~~~~~~~~~~ ~~~~~~~~~ ~~~~~ Thi s is a CORRECTED REPOR T RED BLOOD CELL TEST NOT 4.70-6.10 L Previously re ported (test code = RBC) PERFORMED result: 4. 31 M/zk3Anhjlu M/mm3 by: Esteban7 o n 08/01/21:2331~~ ~~~~~~~~~ ~~~~~~~~~~~~~~~ [...] result: 41.0 %E dited by: Gaye on 08/01/21:233~~ ~~~~~~~~~ ~~~~~~~~~~~~~~~ ~~~~~~~~~ ~~~~~ Thi s is a CORRECTED REPOR T MEAN CELL VOLUME TEST NOT 84.5-98.6 N Previously reported (test code = MCV) PERFORMED Fl result: 95 .1 FlEdited by: Gaye o n 08/01/21:233~~ ~~~~~~~~~ ~~~~~~~~~~~~~~~ [...] result: 33.4 G/DLEdited code = MCHC) by: Esteban7 o n 08/01/21:2334~~ ~~~~~~~~~ ~~~~~~~~~~~~~~~ ~~~~~~~~~ ~~~~~ Thi s is a CORRECTED REPOR T RED CELL TEST NOT 11.5-14.5 N Previously repo rted DISTRIBUTION WIDTH PERFORMED SD result: 1 4.3 SDEdited (test code = RDW) by: Ana CURTIS on 08/01/21:2334~~ ~~~~~~~~~ ~~~~~~~~~~~~~~~ ~~~~~~~~~ ~~~~~ Thi s is a CORRECTED REPOR T PLATELET COUNT TEST NOT 150-450 N Previously re ported (test code = PLT) PERFORMED result: 17 5 K/zt2Tdzwdv K/mm3 by: Esteban7 o n 08/01/21:2335~~ ~~~~~~~~~ ~~~~~~~~~~~~~~~ ~~~~~~~~~ ~~~~~ Thi s is a CORRECTED REPOR T MEAN PLATELET TEST NOT 7.0-10.5 H Previously rep orted VOLUME (test code PERFORMED fL result: fLEdited = MPV) by: Esteban7 o n 08/01/21:2335~~ ~~~~~~~~~ ~~~~~~~~~~~~~~~ ~~~~~~~~~ ~~~~~ Thi s is a CORRECTED REPOR T NEUTROPHIL % (test TEST NOT 40-76 H Previousl y reported code = NT%) PERFORMED % result: 80.5 %E dited by: Giovany.[email or web address] on 08/01/21:233~~ ~~~~~~~~~ ~~~~~~~~~~~~~~~ ~~~~~~~~~ ~~~~~ Thi s is a CORRECTED REPOR T IMMATURE TEST NOT 0.0-5.0 H Previously repo rted GRANULOCYTE % PERFORMED % result: 7.3 %E dited by: (test code = IG%) Mela.[email or web address] on 08/01/21:2334~~ ~~~~~~~~~ ~~~~~~~~~~~~~~~ ~~~~~~~~~ ~~~~~ Thi s is a CORRECTED REPOR T LYMPHOCYTE % (test TEST NOT 20.5-51.1 L Previousl y reported code = LY%) PERFORMED % result: 11.3 %E dited by: [email or web address] on 08/01/21:2334~~ ~~~~~~~~~ ~~~~~~~~~~~~~~~ ~~~~~~~~~ ~~~~~ Thi s is a CORRECTED REPOR T MONOCYTE % (test TEST NOT 1.7-9.3 L Previously reported code = MO%) PERFORMED % result: 0.3 %Ed ited by: Mela.SI7 on 08/01/21:233~~ ~~~~~~~~~ ~~~~~~~~~~~~~~~ ~~~~~~~~~ ~~~~~ Thi s is a CORRECTED REPOR T EOSINOPHIL % (test TEST NOT 0.0-6.0 N Previousl y reported code = EO%) PERFORMED % result: 0.2 %Ed ited by: Mela.[email or web address] on 08/01/21:2335~~ ~~~~~~~~~ ~~~~~~~~~~~~~~~ ~~~~~~~~~ ~~~~~ Thi s is a CORRECTED REPOR T BASOPHIL % (test TEST NOT 0.0-2.0 N Previously reported code = BA%) PERFORMED % result: 0.4 %Ed ited by: Gaye on 08/01/21:2336~~ ~~~~~~~~~ ~~~~~~~~~~~~~~~ ~~~~~~~~~ [...] code = NT#) PERFORMED result: 9.7 K/m q5Tboshs K/mm3 by: Gaye o n 08/01/21:2336~~ ~~~~~~~~~ ~~~~~~~~~~~~~~~ ~~~~~~~~~ ~~~~~ Thi s is a CORRECTED REPOR T IMMATURE TEST NOT 0.00-0.03 GRANULOCYTE # PERFORMED x10 (test code = IG#) 3/uL LYMPHOCYTE # (test TEST NOT 0.6-3.2 N Previousl y reported code = LY#) PERFORMED result: 0.9 K/m q2Mqkuoj K/mm3 by: Esteban7 o n 08/01/21:2336~~ ~~~~~~~~~ ~~~~~~~~~~~~~~~ ~~~~~~~~~ ~~~~~ Thi s is a CORRECTED REPOR T MONOCYTE # (test TEST NOT 0.3-1.1 H Previously reported code = MO#) PERFORMED result: 1.4 K/m x9Tzqgpm K/mm3 by: AnaSI7 o n 08/01/21:2336~~ ~~~~~~~~~ ~~~~~~~~~~~~~~~ ~~~~~~~~~ ~~~~~ Thi s is a CORRECTED REPOR T EOSINOPHIL # (test TEST NOT 0.0-0.4 N Previousl y reported code = EO#) PERFORMED result: 0.4 K/m n2Yymuli K/mm3 by: AnaSI7 o n 08/01/21:2336~~ ~~~~~~~~~ ~~~~~~~~~~~~~~~ ~~~~~~~~~ ~~~~~ Thi s is a CORRECTED REPOR T BASOPHIL # (test TEST NOT 0.0-0.1 N Previously reported code = BA#) PERFORMED result: 0.0 K/m d1Pxpqdk K/mm3 by: Esteban7 o n 08/01/21:2336~~ ~~~~~~~~~ ~~~~~~~~~~~~~~~ ~~~~~~~~~ ~~~~~ Thi s is a CORRECTED REPOR T NUCLEATED RBC # TEST NOT 0.0-0.1 N Previously r eported (test code = PERFORMED result: 0.0 K/m l5Efnyfu NRBC#) K/mm3 by: AnaSI7 o n 08/01/21:2336~~ ~~~~~~~~~ ~~~~~~~~~~~~~~~ ~~~~~~~~~ ~~~~~ Thi s is a CORRECTED REPOR T MANUAL DIFF TEST NOT CRITERIA SLIDE REVIEW CO NSISTANT REQUIRED (test PERFORMED WITH AUTO code = MDIFF) DIFF/SCN DIFFERENTIAL.P reviously reported result : NO DIFF/SCNEdited by: AnaSIVini on 08/01/21:2336~~ ~~~~~~~~~ ~~~~~~~~~~~~~~~ ~~~~~~~~~ ~~~~~ Thi s is a CORRECTED REPOR T PATHOLOGIST'S TEST NOT COMMENTS FINDINGS (test PERFORMED code = PATH) EXTERNAL Comment: q6hr labs while lysis ongoingTHROMBOPLASTIN TIME [id number] 18:28:00 Test Item Value Reference Range Interpretation Comments THROMBOPLASTIN TIME PARTIAL 37.0 SECONDS 26-35 H (test code = PTT) [id number] 18:28:00 Test Item Value Reference Range Interpretation Comments FIBRINOGEN (test code = FIB) 653 mg/dL 185-453 H CBC W/AUTO [id number] 18:14:00 Test Item Value Reference Range Interpretation [...] Comment: q6hr labs while lysis ongoingCBC W/AUTO [id number] 10:32:00 Test Item Value Reference Range Interpretation [...] Comment: q6hr labs while lysis ongoingCBC W/AUTO [id number] 06:59:00 Test Item Value Reference Range Interpretation [...] NT WITH AUTO DIFFERENTI AL. THROMBOPLASTIN TIME [id number] 05:04:00 Test Item Value Reference Range Interpretation Comments THROMBOPLASTIN TIME PARTIAL 36.2 SECONDS 26-35 H (test code = PTT) [id number] 05:04:00 Test Item Value Reference Range Interpretation Comments FIBRINOGEN (test code = FIB) 598 mg/dL 185-453 H BASIC METABOLIC [id number] 04:57:00 Test Item Value Reference Range Interpretation [...] CA) 8.7 MG/DL 8.5-10.1 N THROMBOPLASTIN TIME [id number] 23:32:00 Test Item Value Reference Range Interpretation Comments THROMBOPLASTIN TIME PARTIAL 39.3 SECONDS 26-35 H (test code = PTT) [id number] 23:32:00 Test Item Value Reference Range Interpretation Comments FIBRINOGEN (test code = FIB) 551 mg/dL 185-453 H THROMBOPLASTIN TIME [id number] 17:21:00 Test Item Value Reference Range Interpretation Comments THROMBOPLASTIN TIME PARTIAL 45.2 SECONDS 26-35 H (test code = PTT) [id number] 17:21:00 Test Item Value Reference Range Interpretation Comments FIBRINOGEN (test code = FIB) 615 mg/dL 185-453 H CBC W/AUTO [id number] 17:00:00 Test Item Value Reference Range Interpretation [...] Comment: q6hr labs while lysis ongoingTHROMBOPLASTIN TIME [id number] 09:24:00 Test Item Value Reference Range Interpretation Comments THROMBOPLASTIN TIME PARTIAL 63.7 SECONDS 26-35 H (test code = PTT) PROTHROMBIN [id number] 05:40:00 Test Item Value Reference Range Interpretation [...] o prevent recurre nt infarct). THROMBOPLASTIN TIME [id number] 05:40:00 Test Item Value Reference Range Interpretation Comments THROMBOPLASTIN TIME PARTIAL 57.1 SECONDS 26-35 H (test code = PTT) THYROID STIMULATING [id number] 04:54:00 Test Item Value Reference Range Interpretation Comments THYROID STIMULATING HORMONE 3.030 mcIU/ML 0.340-4.820 N (test code = TSH) COMPREHENSIVE METABOLIC [id number] 04:40:00 Test Item Value Reference Range Interpretation [...] (test code = ALKP) COVID 19 INHOUSE [id number] 04:36:00 Test Item Value Reference Range Interpretation Comments COVID 19 INHOUSE AG NEGATIVE Negative Per manu facturer, (test code = negative result s should [id number]) be treated aspr esumptive and, if inconsi [...] nsistent with COVID-19. Comment: NEW ADMITCBC W/AUTO [id number] 04:26:00 Test Item Value Reference Range Interpretation [...] CRITERIA = MDIFF) - XR CHEST 1 [id number] 03:48:00 [facility] 1955 Sex: F Name: EMEKA JUSTIN [facility] : 1955 Age/S: 65 / F [id number] #: [id number] Loc: [place] [address] Phys: Yesy Logan MD Acct: [id number] Dis Date: Status: ADM IN PHONE #: [phone] Exam Date: 07/31/2021 0300 FAX #: Reason: pneumonia EXAMS: CPT: [id number] XR CHEST 1 V 28919 Fluoro Time: DAP (Gy m2): Air Kerma [...] PAGE 1 Signed Report Name: EMEKA JUSTIN [place] : 1955 Age/S:65 / F [address] #: [id number] Loc: [place] [address] Phys: Yesy Logan MD Acct: [id number] Dis Date: Status: ADM IN PHONE #: [phone] Exam Date: 07/31/2021 0300 FAX #: Reason: pneumonia EXAMS: CPT: [id number] XR CHEST 1 V 26180 Fluoro Time: DAP (Gy m2): Air Kerma (mGy): <Continued> Technologist: Radhika Montenegro, RT(R)(CT) Trnscb Date/Time: 07/31/2021 (0348) EsvinMD16 Orig Print D/T: S: 07/31/2021 (0352) PAGE 2 Signed Report PROTHROMBIN [id number] 02:40:00 Test Item Value Reference Range Interpretation [...] o prevent recurre nt infarct). THROMBOPLASTIN TIME [id number] 02:40:00 Test Item Value Reference Range Interpretation Comments THROMBOPLASTIN TIME PARTIAL 129.0 SECONDS 26-35 HH (test code = PTT) PRO TIME AND [id number] 20:10:00 Test Item Value Reference Range Interpretation [...] ANTI-XA U/S ART FLW DOPPLER KARLA LOW [id number] 16:00:20 [facility] 1955 Sex: FEXAMINATION:U/S ART FLW DOPPLER KARLA LOW EXTCLINICAL INDICATION:Female, 65 years old with Weak arteri al pulseTECHNIQUE: Grayscale, color Doppler, and spectral waveform analysis of the bilateral lower extremity is performed.COMPARISON: NoneFINDINGS:Doppler: Right lower extremity:Common femoral artery velocity distally is diminished measuring 34.1 cm/s. Proximal THEOLOGY TEACHER demonstrates a velocity 380 cm/s. There is [...] the right lower extremity diffusely. Elevated proximal THEOLOGY TEACHER velocity is noted with diminished distal THEOLOGY TEACHER velocity.Electronically signed by: Delfino Tariq MD 07/30/2021 4:00 PM CDT (INCLUDES AUTOMATED DIFFERENTIAL)2021-07-30 05:22:00 Test Item Value Reference Range Interpretation Comments WBC (test code = WBC) 6.2 10\\S\\3/uL 4.5-11.0 RBC (test code = RBC) 4.21 10\\S\\6/uL 4.20-5.60 HGB (test code = HBG) 13.4 g/dL 12.0-15.5 HCT (test code = HCT) 40.7 % 35.0-44.0 MCV (test code = MCV) 96.7 fL 81.0-99.0 MCH (test code = MCH) 31.8 pg 27.0-31.0 H MCHC (test code = MCHC) 32.9 g/dL 32.0-36.0 RDW (test code = RDW) 14.4 % 11.5-14.5 PLT (test code = PLT) 167 10\\S\\3/uL 130-400 MPV (test code = MPV) 11.8 fL 9.4-12.4 NEUTROP # (test code = NE#) 3.6 10\\S\\3/uL 1.6-8.0 LYMPH # (test code = LY#) 1.8 10\\S\\3/uL 1.1-3.5 MONOCYTE # (test code = MO#) 0.8 10\\S\\3/uL 0.0-1.1 EOSINOPH # (test code = EO#) 0.1 10\\S\\3/uL 0.0-0.7 BASOPHIL # (test code = BA#) 0.0 10\\S\\3/uL 0.0-0.3 IG # (test code = IG#) 0.02 10\\S\\3/uL 0.00-0.06 NRBC # (test code = NRBC#) 0.00 10\\S\\3/uL 0.00-0.01 NEUTROPH % (test code = NE%) [...] (test code = MDIFF) NO BASIC METABOLIC [id number] 05:21:00 Test Item Value Reference Range Interpretation Comments GLUCOSE (test code 93 mg/dL 75-100 = 06D) SODIUM (test code 138 mmol/L 136-145 = 01A) POTASSIUM (test 3.6 mmol/L 3.6-5.1 code = 01B) CHLORIDE (test 103 mmol/L 98-107 code = 04A) CO2 (test code = 30 mmol/L - 02A) ANION GAP (test 8.6 mmol/L code = ANG) BUN (test code = 15 mg/dL 9- 05D) CREATININE (test 1.0 mg/dL 0.6-1.0 code = 03E) GFR (test code = 59 See_Comment L [Automated GFR) mL/min/1.73m\\S\\2 message] Th e system which generated this result transmit edward reference range : >=90. The reference range was not used to interpret this result as normal/abnormal . GFR 69 See_Comment L [Automated CYMRAES (test mL/min/1.73m\\S\\2 message] The code = GFRAA) system which [...] 8.1 mg/dL 8.3-10.6 L = 09D) VANCOMYCIN [id number] 09:41:00 Test Item Value Reference Range Interpretation Comments VANC BLANCAKELLEN (test code = VANCT) 17.6 ug/dL 10.0-20.0 BASIC METABOLIC [id number] 05:36:00 Test Item Value Reference Range Interpretation Comments GLUCOSE (test code 101 mg/dL 75-100 H = 06D) SODIUM (test code 141 mmol/L 136-145 = 01A) POTASSIUM (test 3.0 mmol/L 3.6-5.1 L code = 01B) CHLORIDE (test 105 mmol/L 98-107 code = 04A) CO2 (test code = 29 mmol/L 20- 02A) ANION GAP (test 10.0 mmol/L code = ANG) BUN (test code = 13 mg/dL 9-23 05D) CREATININE (test 1.0 mg/dL 0.6-1.0 code = 03E) GFR (test code = 59 See_Comment L [Automated GFR) mL/min/1.73m\\S\\2 message] Th e system which generated this result transmit edward reference range : >=90. The reference range was not used to interpret this result as normal/abnormal . GFR 69 See_Comment L [Automated CYMRAES (test mL/min/1.73m\\S\\2 message] The code = GFRAA) system which generated this result transmit edward reference range : >=90. The reference range was not used to interpret this result as normal/abnormal . EGFR (test code = eGFR BY EGFR) CKD-EPI CALCULATION IS NOT RECOMMENDED FOR PATIENTS UNDER 18 YEARS OF AGE. BUN/CREA (test 13 12-20 code = BCR) CALCIUM (test code 7.8 mg/dL 8.3-10.6 L = 09D) CBC (INCLUDES AUTOMATED DIFFERENTIAL)2021-07-29 05:23:00 Test Item Value Reference Range Interpretation Comments WBC (test code = WBC) 7.6 10\\S\\3/uL 4.5-11.0 RBC (test code = RBC) 4.26 10\\S\\6/uL 4.20-5.60 HGB (test code = HBG) 13.6 g/dL 12.0-15.5 HCT (test code = HCT) 40.8 % 35.0-44.0 MCV (test code = MCV) 95.8 fL 81.0-99.0 MCH (test code = MCH) 31.9 pg 27.0-31.0 H MCHC (test code = MCHC) 33.3 g/dL 32.0-36.0 RDW (test code = RDW) 14.4 % 11.5-14.5 PLT (test code = PLT) 167 10\\S\\3/uL 130-400 MPV (test code = MPV) 11.7 fL 9.4-12.4 NEUTROP # (test code = NE#) 4.9 10\\S\\3/uL 1.6-8.0 LYMPH # (test code = LY#) 2.0 10\\S\\3/uL 1.1-3.5 MONOCYTE # (test code = MO#) 0.7 10\\S\\3/uL 0.0-1.1 EOSINOPH # (test code = EO#) 0.0 10\\S\\3/uL 0.0-0.7 BASOPHIL # (test code = BA#) 0.0 10\\S\\3/uL 0.0-0.3 IG # (test code = IG#) 0.02 10\\S\\3/uL 0.00-0.06 NRBC # (test code = NRBC#) 0.00 10\\S\\3/uL 0.00-0.01 NEUTROPH % (test code = NE%) [...] RBCMOR) NORMAL U/S VENOUS DOPPLER KARLA LOW [id number] 01:46:07 [facility] : 1955 Sex: FEXAM: BILATERAL [...] calves. LOCATION: R 16Electronically signed by: Doris Gileltte MD 07/29/2021 1:46 AM CDT [id number] NATRIURETIC [id number] 15:16:00 Test Item Value Reference Range Interpretation Comments BNP (test code = 1010 pg/mL See_Comment H [Automated message] The A74) system which ge nerated this result tra nsmitted reference range : <=100. The reference r azra was not used to int erpret this result as normal/abnormal . CBC WITH MANUAL [id number] 07:39:00 Test Item Value Reference Range Interpretation Comments WBC (test code = WBC) 9.8 10\\S\\3/uL 4.5-11.0 RBC (test code = RBC) 4.44 10\\S\\6/uL 4.20-5.60 HGB (test code = HBG) 14.1 g/dL 12.0-15.5 HCT (test code = HCT) 42.9 % 35.0-44.0 MCV (test code = MCV) 96.6 fL 81.0-99.0 MCH (test code = MCH) 31.8 pg 27.0-31.0 H MCHC (test code = MCHC) 32.9 g/dL 32.0-36.0 RDW (test code = RDW) 14.3 % 11.5-14.5 PLT (test code = PLT) 184 10\\S\\3/uL 130-400 MPV (test code = MPV) 11.4 fL 9.4-12.4 NEUTROP # (test code = 8.1 10\\S\\3/uL 1.6-8.0 H NE#) LYMPH # (test code = 1.1 10\\S\\3/uL 1.1-3.5 LY#) MONOCYTE # (test code = 0.6 10\\S\\3/uL 0.0-1.1 MO#) EOSINOPH # (test code = 0.0 10\\S\\3/uL 0.0-0.7 EO#) BASOPHIL # (test code = 0.0 10\\S\\3/uL 0.0-0.3 BA#) IG # (test code = IG#) 0.04 10\\S\\3/uL 0.00-0.06 NRBC # (test code = 0.00 10\\S\\3/uL 0.00-0.01 NRBC#) NEUTROPH % (test code = [...] code = 1+ NONE A HYPOC) CARDIAC [id number] 07:02:00 Test Item Value Reference Range Interpretation Comments TROPONIN I (test code = A84) 106.56 pg/mL 0.00-45.20 HH BASIC METABOLIC [id number] 06:59:00 Test Item Value Reference Range Interpretation [...] ANG) BUN (test code = 13 mg/dL 9- 05D) CREATININE (test 0.7 mg/dL 0.6-1.0 code = 03E) GFR (test code = 91 See_Comment [Automated GFR) mL/min/1.73m\\S\\2 message] e system which generated this result transmit edward reference range : >=90. The reference range was not used to interpret this result as normal/abnormal . GFR 106 See_Comment [Automated CYMRAES (test mL/min/1.73m\\S\\2 message] The code = GFRAA) system which generated this result transmit edward reference range : >=90. The reference range was not used to interpret this result as normal/abnormal . EGFR (test code = eGFR BY EGFR) CKD-EPI CALCULATION IS NOT RECOMMENDED FOR PATIENTS UNDER 18 YEARS OF AGE. BUN/CREA (test 03-21 code = BCR) CALCIUM (test code 7.4 mg/dL 8.3-10.6 L = 09D) [id number] 06:48:00 Test Item Value Reference Range Interpretation Comments D-DIMER (test code = 607 ng/mL D-DU 0-234 H DDI) D-DIMER COMMENT (test *Level to rule out code = DDCOM) DVT or PE: <235 ng/mL D-DU* CARDIAC [id number] 00:54:00 Test Item Value Reference Range Interpretation Comments TROPONIN I (test code = A84) 141.88 pg/mL 0.00-45.20 METLAC 12 PANEL *OW* [id number] 12:27:00 Test Item Value Reference Range Interpretation [...] (test code = OPHOS) 3.2 mg/dL 2.2-4.1 METLA 12 PANEL *OW* [id number] 10:58:00 Test Item Value Reference Range Interpretation [...] the FDA and the [employer] (CAP) are more stringent than those required for this test. Therefore, the result should be interpreted with caution and close attention to other clinical and epidemiological data TROPONIN I [id number] 10:30:00 Test Item Value Reference Range Interpretation Comments TROPONIN I (test <0.05 ng/mL See_Comment [Automated message] code = GTPI) The system [employer] generated this result transmitted ref erence range: [...] 1130 pg/mL See_Comment H [Automated message] The [employer]) system which ge nerated this result tra nsmitted reference range : <=100. The reference r azra was not used to int erpret this result as normal/abnormal . MetyLyte 8 Panel *OW* [id number] 10:02:00 Test Item Value Reference Range Interpretation [...] 26 mmol/L 18-33 GENERAL CHEMISTRY 13 *OW* [id number] 10:02:00 Test Item Value Reference Range Interpretation [...] XR CHEST 1 VIEW PORTABLE *OW*2021-07-27 10:00:22 [facility] : 1955 Sex: FPortable AP chest, 1 viewLocation Code: [id number] HISTORY: DyspneaCOMPARISON: 09/15/2017COMMENT: The heart size is normal with central congestion and scattered patchy diffuse bilateral perihilar and lower lobe infiltrates consistent with pneumonia progressive in the interval. Arthrosis seen about both shoulders.IMPRESSION: Central pulmonary congestion with moderate bilateral bronchopneumonia.Electron ically signed by: Girish Gillespie MD 07/27/2021 10:00 AM CDT [id number] (INCLUDES AUTOMATED DIFFERENTIAL) *2021-07-27 10:00:00 Test Item Value Reference Range Interpretation Comments WBC (test code = WBC) 9.8 10\\S\\3/uL 4.5-11.0 RBC (test code = RBC) 5.26 10\\S\\6/uL 4.20-5.60 HGB (test code = HBG) 16.9 g/dL 12.0-15.5 H HCT (test code = HCT) 51.7 % 35.0-44.0 H MCV (test code = MCV) 98.2 fL 81.0-99.0 MCH (test code = MCH) 32.1 pg 27.0-31.0 H MCHC (test code = MCHC) 32.7 g/dL 32.0-36.0 RDW (test code = RDW) 14.3 % 11.5-14.5 PLT (test code = PLT) 224 10\\S\\3/uL 130-400 MPV (test code = OMPV) 9.3 fL 6.2-10.2 NEUTROP # (test code = NE#) 3.9 10\\S\\3/uL 1.6-8.0 LYMPH # (test code = LY#) 4.7 10\\S\\3/uL 1.1-3.5 H MID # (test code = GMID#) 1.2 10\\S\\3/uL 0.0-1.1 H GRAN % (test code = GRA%) 40.1 % 35.0-73.0 LYMPH % (test code = GLY%) 47.5 % 20.0-55.0 MID % (test code = GMID%) 12.4 % 0.0-10.0 H XR SHOULDER RIGHT 3VIEWS *OW*2021-02-22 14:34:03 [facility] : 1955 Sex: FEXAMINATION:XR SHOULDER RIGHT 3VIEWS CLINICAL INDICATION:Female, 65 years old with Pain of right shoulder jointCOMPARISON: NoneFINDINGS:Three view(s) of the right shoulder obtained.Joint spaces: Moderate osteoarthritis of the acromioclavicular and glenohumeral joints.Bones: No acute fracture.Soft tissues: Unremarkable.IMPRESSION: Moderate osteoarthritis. Otherwise, no acute abnormality.Electronically signed by: Kenneth Sanchez MD 02/22/2021 2:34 PM [facility] [id number] TIME i-STAT OW2020-08-26 10:11:00 Test Item Value Reference Range Interpretation Comments PT (test code = 13.7 s 10.0-13.0 H PT1) INR (test code = 1.1 INR) INRH (test code = SUGGESTED INRH) THERAPEUTIC RANGE FOR INR: 2.5 - 3.5 For Patients with Prosthetic Valves or Patients with recurrent Thromboembolic Events 2.0 - 3.0 For Most Other Applications MetyLyte 8 Panel *OW* [id number] 09:55:00 Test Item Value Reference Range Interpretation [...] Comments WBC (test code = WBC) 7.5 10\\S\\3/uL 4.5-11.0 RBC (test code = RBC) 4.66 10\\S\\6/uL 4.20-5.60 HGB (test code = HBG) 15.3 g/dL 12.0-15.5 HCT (test code = HCT) 46.9 % 35.0-44.0 H MCV (test code = MCV) 100.7 fL 81.0-99.0 H MCH (test code = MCH) 32.8 pg 27.0-31.0 H MCHC (test code = MCHC) 32.6 g/dL 32.0-36.0 RDW (test code = RDW) 13.8 % 11.5-14.5 PLT (test code = PLT) 219 10\\S\\3/uL 130-400 MPV (test code = OMPV) 9.2 fL 6.2-10.2 NEUTROP # (test code = NE#) 4.7 10\\S\\3/uL 1.6-8.0 LYMPH # (test code = LY#) 2.2 10\\S\\3/uL 1.1-3.5 MID # (test code = GMID#) 0.7 10\\S\\3/uL 0.0-1.1 GRAN % (test code = GRA%) [...] the FDA and the [employer] ([employer]) are more stringent than those required for this test. Therefore, the result should be interpreted with caution and close attention to other clinical and epidemiological data XR HIP RIGHT UNILATERAL 2 VIEWS *OW*2020-08-26 07:50:17 [facility] : 1955 Sex: FEXAM: XR HIP 2 OR MORE VIEWS BILATERALCLINICAL HISTORY: PainCOMPARISON: None available.TECHNIQUE: AP and lateral views of the right hip.LOCATION: [id number]:Bones: No displaced fracture or dislocation identified. Normal [...] HAND LEFT COMPLETE 3 VIEWS *OW*2020-08-26 07:46:40 [facility] : 1955 Sex: FEXAM: XR HAND 3 OR MORE VIEWSCLINICAL HISTORY: PainCOMPARISON: None available.TECHNIQUE: PA, Oblique, and lateral views of the left hand.LOCATION: [id number]:Bones: No dislocation identified. Normalmarrow density. A well-corticated [...] 11:28:17CT abdomen and pelvis without contrastLocation Code: [id number] HISTORY: Abdominal painCOMPARISON: Technique: Helical CT of [...] (RENAL)2017-09-21 07:28:32CLINICAL INFORMATION: Essential hypertension workup.Dictation location: [id number]: Abdomen CT 09/13/17 reported no apparent abnormality [...] than the left. Otherwise unremarkable.CBC WITH MANUAL [id number] 06:34:00 Test Item Value Reference Range Interpretation Comments WBC (test code = WBC) 8.9 10\\S\\3/uL 4.5-11.0 RBC (test code = RBC) 4.67 10\\S\\6/uL 4.20-5.60 HGB (test code = HBG) 14.5 g/dL 12.0-15.5 HCT (test code = HCT) 43.0 % 35.0-44.0 MCV (test code = MCV) 92.1 fL 81.0-99.0 MCH (test code = MCH) 31.0 pg 27.0-31.0 MCHC (test code = MCHC) 33.7 g/dL 32.0-36.0 RDW (test code = RDW) 14.8 % 11.5-14.5 H PLT (test code = PLT) 294 10\\S\\3/uL 130-400 MPV (test code = MPV) 11.1 fL 9.4-12.4 NEUTROP # (test code = 5.0 10\\S\\3/uL 1.6-8.0 NE#) LYMPH # (test code = 2.6 10\\S\\3/uL 1.1-3.5 LY#) MONOCYTE # (test code = 1.2 10\\S\\3/uL 0.0-1.1 H MO#) EOSINOPH # (test code = 0.1 10\\S\\3/uL 0.0-0.7 EO#) BASOPHIL # (test code = 0.0 10\\S\\3/uL 0.0-0.3 BA#) IG # (test code = IG#) 0.05 10\\S\\3/uL 0.00-0.06 NRBC # (test code = 0.00 10\\S\\3/uL 0.00-0.01 NRBC#) NEUTROPH % (test code = [...] code = NORMAL (1.5-3 um) NORMAL PLTMOR) [id number] 05:49:00 Test Item Value Reference Range Interpretation Comments MAGNESIUM (test code = 48A) 1.9 mg/dL 1.8-2.4 BASIC METABOLIC [id number] 05:47:00 Test Item Value Reference Range Interpretation [...] code = 09D) 9.0 mg/dL 8.3-9.5 BLOOD [id number] 13:05:00 Test Item Value Reference Range Interpretation Comments Culture Observations (test NO GROWTH AFTER 5 code = COB1) DAYS CBC WITH MANUAL [id number] 07:37:00 Test Item Value Reference Range Interpretation Comments WBC (test code = 10.2 10\\S\\3/uL 4.5-11.0 WBC) RBC (test code = 4.42 10\\S\\6/uL 4.20-5.60 RBC) HGB (test code = 13.9 g/dL 12.0-15.5 HBG) HCT (test code = 40.9 % 35.0-44.0 HCT) MCV (test code = 92.5 fL 81.0-99.0 MCV) MCH (test code = 31.4 pg 27.0-31.0 H MCH) MCHC (test code = 34.0 g/dL 32.0-36.0 MCHC) RDW (test code = 14.6 % 11.5-14.5 H RDW) PLT (test code = 215 10\\S\\3/uL 130-400 PLT) MPV (test code = 11.5 fL 9.4-12.4 MPV) NEUTROP # (test 5.8 10\\S\\3/uL 1.6-8.0 code = NE#) LYMPH # (test code 2.7 10\\S\\3/uL 1.1-3.5 = LY#) MONOCYTE # (test 1.4 10\\S\\3/uL 0.0-1.1 H code = MO#) EOSINOPH # (test 0.2 10\\S\\3/uL 0.0-0.7 code = EO#) BASOPHIL # (test 0.1 10\\S\\3/uL 0.0-0.3 code = BA#) IG # (test code = 0.07 10\\S\\3/uL 0.00-0.06 H IG#) NRBC # (test code 0.00 10\\S\\3/uL 0.00-0.01 = NRBC#) NEUTROPH % (test 56.8 [...] PLTMOR) rare giant pl t BASIC METABOLIC [id number] 06:39:00 Test Item Value Reference Range Interpretation [...] code = 09D) 8.4 mg/dL 8.3-9.5 BLOOD [id number] 07:48:00 Test Item Value Reference Range Interpretation Comments Culture Observations (test NO GROWTH AFTER 5 code = COB1) DAYS CBC WITH MANUAL [id number] 05:54:00 Test Item Value Reference Range Interpretation Comments WBC (test code = WBC) 9.7 10\\S\\3/uL 4.5-11.0 RBC (test code = RBC) 4.66 10\\S\\6/uL 4.20-5.60 HGB (test code = HBG) 14.6 g/dL 12.0-15.5 HCT (test code = HCT) 43.1 % 35.0-44.0 MCV (test code = MCV) 92.5 fL 81.0-99.0 MCH (test code = MCH) 31.3 pg 27.0-31.0 H MCHC (test code = MCHC) 33.9 g/dL 32.0-36.0 RDW (test code = RDW) 14.7 % 11.5-14.5 H PLT (test code = PLT) 212 10\\S\\3/uL 130-400 MPV (test code = MPV) 10.8 fL 9.4-12.4 NEUTROP # (test code = 6.0 10\\S\\3/uL 1.6-8.0 NE#) LYMPH # (test code = 2.1 10\\S\\3/uL 1.1-3.5 LY#) MONOCYTE # (test code = 1.2 10\\S\\3/uL 0.0-1.1 H MO#) EOSINOPH # (test code = 0.2 10\\S\\3/uL 0.0-0.7 EO#) BASOPHIL # (test code = 0.0 10\\S\\3/uL 0.0-0.3 BA#) IG # (test code = IG#) 0.05 10\\S\\3/uL 0.00-0.06 NRBC # (test code = 0.00 10\\S\\3/uL 0.00-0.01 NRBC#) NEUTROPH % (test code = [...] = PRESENT NONE A VAC) BASIC METABOLIC [id number] 05:11:00 Test Item Value Reference Range Interpretation [...] = 09D) 8.8 mg/dL 8.3-9.5 BASIC METABOLIC [id number] 05:33:00 Test Item Value Reference Range Interpretation [...] Comments WBC (test code = WBC) 8.8 10\\S\\3/uL 4.5-11.0 RBC (test code = RBC) 4.77 10\\S\\6/uL 4.20-5.60 HGB (test code = HBG) 15.0 g/dL 12.0-15.5 HCT (test code = HCT) 44.2 % 35.0-44.0 H MCV (test code = MCV) 92.7 fL 81.0-99.0 MCH (test code = MCH) 31.4 pg 27.0-31.0 H MCHC (test code = MCHC) 33.9 g/dL 32.0-36.0 RDW (test code = RDW) 14.7 % 11.5-14.5 H PLT (test code = PLT) 226 10\\S\\3/uL 130-400 MPV (test code = MPV) 11.2 fL 9.4-12.4 NEUTROP # (test code = NE#) 6.5 10\\S\\3/uL 1.6-8.0 LYMPH # (test code = LY#) 1.1 10\\S\\3/uL 1.1-3.5 MONOCYTE # (test code = MO#) 1.1 10\\S\\3/uL 0.0-1.1 EOSINOPH # (test code = EO#) 0.0 10\\S\\3/uL 0.0-0.7 BASOPHIL # (test code = BA#) 0.0 10\\S\\3/uL 0.0-0.3 IG # (test code = IG#) 0.03 10\\S\\3/uL 0.00-0.06 NRBC # (test code = NRBC#) 0.00 10\\S\\3/uL 0.00-0.01 NEUTROPH % (test code = NE%) [...] (test code = RBCMOR) NORMAL BASIC METABOLIC [id number] 21:29:00 Test Item Value Reference Range Interpretation [...] 09D) 7.9 mg/dL 8.3-9.5 L BASIC METABOLIC [id number] 17:18:00 Test Item Value Reference Range Interpretation [...] = 09D) 8.0 mg/dL 8.3-9.5 L URINE [id number] 07:45:00 Test Item Value Reference Range Interpretation Comments Culture Observations (test NO GROWTH (<1,000 code = COB1) CFU/ML) BASIC METABOLIC [id number] 07:18:00 Test Item Value Reference Range Interpretation [...] Comments WBC (test code = WBC) 9.4 10\\S\\3/uL 4.5-11.0 RBC (test code = RBC) 4.68 10\\S\\6/uL 4.20-5.60 HGB (test code = HBG) 14.8 g/dL 12.0-15.5 HCT (test code = HCT) 43.1 % 35.0-44.0 MCV (test code = MCV) 92.1 fL 81.0-99.0 MCH (test code = MCH) 31.6 pg 27.0-31.0 H MCHC (test code = MCHC) 34.3 g/dL 32.0-36.0 RDW (test code = RDW) 14.7 % 11.5-14.5 H PLT (test code = PLT) 195 10\\S\\3/uL 130-400 MPV (test code = MPV) 11.2 fL 9.4-12.4 NEUTROP # (test code = NE#) 7.6 10\\S\\3/uL 1.6-8.0 LYMPH # (test code = LY#) 0.9 10\\S\\3/uL 1.1-3.5 L MONOCYTE # (test code = MO#) 0.9 10\\S\\3/uL 0.0-1.1 EOSINOPH # (test code = EO#) 0.0 10\\S\\3/uL 0.0-0.7 BASOPHIL # (test code = BA#) 0.0 10\\S\\3/uL 0.0-0.3 IG # (test code = IG#) 0.05 10\\S\\3/uL 0.00-0.06 NRBC # (test code = NRBC#) 0.00 10\\S\\3/uL 0.00-0.01 NEUTROPH % (test code = NE%) [...] RBC MORPH (test code = RBCMOR) NORMAL [id number] 07:06:00 Test Item Value Reference Range Interpretation Comments MAGNESIUM (test code = 48A) 1.7 mg/dL 1.8-2.4 L BASIC METABOLIC [id number] 07:01:00 Test Item Value Reference Range Interpretation [...] Comments WBC (test code = WBC) 13.0 10\\S\\3/uL 4.5-11.0 H RBC (test code = RBC) 4.87 10\\S\\6/uL 4.20-5.60 HGB (test code = HBG) 15.4 g/dL 12.0-15.5 HCT (test code = HCT) 45.4 % 35.0-44.0 H MCV (test code = MCV) 93.2 fL 81.0-99.0 MCH (test code = MCH) 31.6 pg 27.0-31.0 H MCHC (test code = MCHC) 33.9 g/dL 32.0-36.0 RDW (test code = RDW) 14.6 % 11.5-14.5 H PLT (test code = PLT) 180 10\\S\\3/uL 130-400 MPV (test code = MPV) 11.7 fL 9.4-12.4 NEUTROP # (test code = NE#) 11.0 10\\S\\3/uL 1.6-8.0 H LYMPH # (test code = LY#) 1.0 10\\S\\3/uL 1.1-3.5 L MONOCYTE # (test code = MO#) 0.9 10\\S\\3/uL 0.0-1.1 EOSINOPH # (test code = EO#) 0.0 10\\S\\3/uL 0.0-0.7 BASOPHIL # (test code = BA#) 0.0 10\\S\\3/uL 0.0-0.3 IG # (test code = IG#) 0.05 10\\S\\3/uL 0.00-0.06 NRBC # (test code = NRBC#) 0.00 10\\S\\3/uL 0.00-0.01 NEUTROPH % (test code = NE%) [...] MORPH (test code = RBCMOR) NORMAL LACTIC [id number] 23:39:00 Test Item Value Reference Range Interpretation Comments LACTIC ACD (test code = LA) 0.8 mmol/L 0.4-2.0 URINALYSIS WITH [id number] 12:26:00 Test Item Value Reference Range Interpretation [...] USPERM) /HPF NONE XR CHEST 1 VIEW [id number] 10:40:07Exam: Chest portable erectLocation: S8Nvbtdec: [id number]: LeukocytosisComparison: 09/13/2017.Findings:The current film was exposed in a shallow degree of inspiration with intervaldevelopment of bibasilar atelectasis. The heart size is unchanged. Themediastinal silhouette is unremarkable. The bony thorax is intact. Anasogastric tube traverses the thorax.Impression:Basilar atelectasis.CBC WITH MANUAL [id number] 08:57:00 Test Item Value Reference Range Interpretation Comments WBC (test code = WBC) 12.5 10\\S\\3/uL 4.5-11.0 H RBC (test code = RBC) 4.65 10\\S\\6/uL 4.20-5.60 HGB (test code = HBG) 14.8 g/dL 12.0-15.5 HCT (test code = HCT) 43.7 % 35.0-44.0 MCV (test code = MCV) 94.0 fL 81.0-99.0 MCH (test code = MCH) 31.8 pg 27.0-31.0 H MCHC (test code = MCHC) 33.9 g/dL 32.0-36.0 RDW (test code = RDW) 14.7 % 11.5-14.5 H PLT (test code = PLT) 186 10\\S\\3/uL 130-400 MPV (test code = MPV) 11.4 fL 9.4-12.4 NEUTROP # (test code = 10.2 10\\S\\3/uL 1.6-8.0 H NE#) LYMPH # (test code = 1.1 10\\S\\3/uL 1.1-3.5 LY#) MONOCYTE # (test code = 1.1 10\\S\\3/uL 0.0-1.1 MO#) EOSINOPH # (test code = 0.0 10\\S\\3/uL 0.0-0.7 EO#) BASOPHIL # (test code = 0.0 10\\S\\3/uL 0.0-0.3 BA#) IG # (test code = IG#) 0.04 10\\S\\3/uL 0.00-0.06 NRBC # (test code = 0.00 10\\S\\3/uL 0.00-0.01 NRBC#) NEUTROPH % (test code = [...] NORMAL (1.5-3 um) NORMAL PLTMOR) COMPREHENSIVE METABOLIC [id number] 06:45:00 Test Item Value Reference Range Interpretation [...] code = 31A) 21 IU/L <=78 LIPASE [id number] 06:45:00 Test Item Value Reference Range Interpretation Comments LIPASE (test code = 60A) 42 IU/L 73-[address] ABDOMEN AND PELVIS W/O CONTRAST *OW*2017-09-14 02:57:29Critical results reported to Dr. Lobo by telephone at 2329 hours.XR CHEST 1 VIEW PORTABLE *OW* 2017-09-13 23:53:01STUDY: Chest radiographHISTORY: Abdominal pain.COMPARISON: CT abdomen/pelvis 09/13/17.TECHNIQUE: Frontal view of the chest.LOCATION: [id number]:The cardiac silhouette is unremarkable. Low lung volumesaccentuate [...] Comments WBC (test code = WBC) 7.9 10\\S\\3/uL 4.5-11.0 RBC (test code = RBC) 5.55 10\\S\\6/uL 4.20-5.60 HGB (test code = HBG) 17.8 g/dL 12.0-15.5 H HCT (test code = HCT) 53.8 % 35.0-44.0 H MCV (test code = MCV) 97.0 fL 81.0-99.0 MCH (test code = MCH) 32.1 pg 27.0-31.0 H MCHC (test code = MCHC) 33.1 g/dL 32.0-36.0 RDW (test code = RDW) 13.3 % 11.5-14.5 PLT (test code = PLT) 205 10\\S\\3/uL 130-400 MPV (test code = MPV) 8.6 fL 9.4-12.4 L NEUTROP # (test code = NE#) 5.6 10\\S\\3/uL 1.6-8.0 LYMPH # (test code = LY#) 1.8 10\\S\\3/uL 1.1-3.5 MID # (test code = GMID#) 0.5 10\\S\\3/uL 0.0-1.1 GRA % (test code = GRA%) [...]
--- NOTE | 2021-09-09 21:35 | RAD REPORT ---
EXAM DESCRIPTION: RAD - Knee Right 3 View - 09/09/2021 9:25 pm CLINICAL HISTORY: open wound, s/p BKA COMPARISON: No comparisons FINDINGS: No acute finding in the knee joint. No joint effusion is identifiable.Patient is recently status post below-knee amputation. Skin christine are still in place. No erosive or destructive bone ch azra at the osteotomy site. Medial wound is evident. No abnormal air migrating in the soft tissues. C orrelation is needed with clinical exam findings to determine if the medial soft tissue defect is rel ated to the recent surgery or there are necrotic or inflammatory changes at this site. Distal femoral artery arterial stent in place. IMPRESSION: Recent below-knee amputation with no acute finding at the osteotomy sites. Skin christine are still in place. Soft tissue and air density along the medial margin of the tibial plateau could represent a skin woun d. Correlation is needed with exam findings.
[2021-09-09 21:49] LABS: Absolute Lymphocytes (CBC) 1.9 K/uL (0.7-4.9); Hematocrit 29.8 % (36.0-45.0); Lymphocytes % 29.1 % (15.3-44.8); MPV 7.5 fL (7.6-11.3); RBC Red Blood Cell Count 3.21 M/uL (3.86-4.86)
[2021-09-09 21:53] LABS: Protime INR 1.35
[2021-09-09 22:07] LABS: AST/SGOT 24 U/L (15-37); Albumin 3.2 g/dL (3.4-5.0); Alkaline Phosphatase 83 U/L (45-117); BUN Blood Urea Nitrogen 21 mg/dL (7-18); Bicarbonate 27 mmol/L (21-32); Bilirubin Total 0.3 mg/dL (0.2-1.0); Glomerular Filtration Rate 66 ml/min (=/>90); Glucose Level 84 mg/dL (74-106); Potassium 4.6 mmol/L (3.5-5.1); Protein, Total 7.8 g/dL (6.4-8.2); Sodium Level 136 mmol/L (136-145)
[2021-09-09 22:23] LABS: Bilirubin Direct < 0.1 mg/dL (0-0.2)
[2021-09-09 23:10] LABS: ALT/SGPT ND U/L (12-78)
--- NOTE | 2021-09-09 23:51 | ER ---
Nurse's Notes [facility] Name: Ara Vernon Age: 65 yrs Sex: Female : 1955 Arrival Date: 09/09/2021 Time: 20:43 Bed 3 Private MD: Diagnosis: Wound necrosis at surgical site, s/p Right BKA Presentation: 09/09 20:48 Chief complaint: EMS states: pt had a leg amputation on the right side and intermediate kd3 sent her to the er because the stump in now necrotic and "has a hole". Coronavirus screen: Vaccine status: Patient reports receiving the 2nd dose of the covid vaccine. Ebola Screen: No symptoms or risks identified at this time. Initial Sepsis Screen: Does the patient meet any 2 criteria? No. Patient's initial sepsis screen is negative. Does the patient have a suspected source of infection? No. Patient's initial sepsis screen is negative. Risk Assessment: Do you want to hurt yourself or someone else?. Onset of symptoms was September 09, 2021. 20:48 Method Of Arrival: EMS: [facility] kd3 20:48 Acuity: BRIAN 3 kd3 Triage Assessment: 20:51 General: Appears in no apparent distress. Behavior is calm, cooperative. Pain: kd3 Complains of pain in right amputauion site. Neuro: Level of Consciousness is awake, alert. Musculoskeletal: Amputation of right leg. 21:03 Injury Description: Amputation sustained to right leg. kd3 Historical: - Allergies: 20:51 Aspirin; kd3 20:51 tramadol; kd3 - PMHx: 20:51 Anxiety; CHF; Chronic Embolism and Thrombosis of vein; Chronic pain; depressive kd3 disorder; GERD; Pneumonia; Hypertensive disorder; PVD; - Immunization history:: Adult Immunizations up to date. - Social history:: Smoking status: Patient/guardian denies using tobacco. Screenin:52 Abuse screen: Denies threats or abuse. Denies injuries from another. Nutritional kd3 screening: No deficits noted. Tuberculosis screening: No symptoms or risk factors identified. Fall Risk. Assessment: 21:02 General: Appears uncomfortable, Behavior is calm, cooperative. Neuro: Level of kd3 Consciousness is awake, alert, obeys commands, Oriented to person, place, time, situation. Respiratory: Airway is patent Trachea midline Respiratory effort is even, unlabored, Respiratory pattern is regular. 09/10 00:48 Reassessment: No changes from previously documented assessment. Patient and/or family kd3 updated on plan of care and expected duration. Pain level reassessed. Patient is alert, oriented x 3, equal unlabored respirations, skin warm/dry/pink. report called to emma ac RN. Vital Signs: 09/09 20:48 BP 148 / 65; Pulse 63; Resp 17; Pulse Ox 100% on R/A; kd3 20:58 Temp 98.4(O); kd3 21:02 Weight 67.13 kg; Height 5 ft. 6 in. (167.64 cm); Pain 01/09; kd3 22:33 BP 128 / 70; Pulse 61; Resp 17; Pulse Ox 100% on R/A; kd3 09/10 01:43 BP 125 / 50; Pulse 67; Resp 18; Pulse Ox 99% on R/A; kd3 09/09 21:02 Body Mass Index 23.89 (67.13 kg, 167.64 cm) kd3 ED Course: 09/09 20:43 Patient arrived in ED. jj6 20:45 Koko Mccracken MD is Attending Physician. mh7 20:47 Daja Torres, MELCHOR is Primary Nurse. kd3 20:51 Triage completed. kd3 20:51 Arm band placed on right wrist. kd3 21:02 Patient has correct armband on for positive identification. Pulse ox on. NIBP on. kd3 21:02 No provider procedures requiring assistance completed. kd3 21:26 Knee Right 3 View XRAY In Process Unspecified. EDMS 21:33 Inserted saline lock: 20 gauge in right antecubital area, using aseptic technique. Blood collected. 21:33 Protime (+inr) Sent. zm 21:33 Blood Culture Adult (2) Sent. zm 21:33 Ptt, Activated Sent. zm 21:33 LFT's Sent. zm 21:33 Basic Metabolic Panel Sent. zm 21:33 CBC with Diff Sent. 21:33 COVID-19 SARS RT PCR (Document "Date of Onset" if Symptomatic) Sent. 09/10 01:43 Patient transferred, IV remains in place. kd3 Administered Medications: 00:07 Drug: Zosyn (piperacillin-tazobactam) 3.375 grams Route: IVPB; Infused Over: 60 mins; kd3 Site: right antecubital; 00:52 Follow up: Response: No adverse reaction; Rate change 100 ml; IV Status: Completed kd3 infusion 00:07 Drug: morphine 2 mg Route: IVP; Infused Over: 4 mins; Site: right antecubital; kd3 00:52 Follow up: Response: No adverse reaction; Pain is decreased kd3 00:07 Drug: Zofran (Ondansetron) 4 mg Route: IVP; Site: right antecubital; kd3 00:52 Follow up: Response: No adverse reaction; Pain is decreased kd3 Medication: 09/09 21:03 VIS not applicable for this client. kd3 Outcome: 23:50 ER care complete, transfer ordered by MD. mitchell 09/10 01:42 Discharged to home ambulatory. kd3 Condition: stable Discharge instructions given to patient, Instructed on the need for transfer, Demonstrated understanding of instructions. 01:43 Patient left the ED. kd3 Signatures: Dispatcher [employer] Koko Tucker MD MD 7 Ree Bhandari Kyli, RN RN clark3 Chandni Gomez
--- NOTE | 2021-09-09 23:51 | EDPHYS ---
Physician Documentation [facility] Name: Ara Vernon Age: 65 yrs Sex: Female : 1955 Arrival Date: 09/09/2021 Time: 20:43 Bed 3 Private MD: ED Physician Koko Mccracken HPI: 09/09 20:45 This 65 yrs old Black Female presents to ER via EMS with complaints of Leg Injury. mh7 20:45 The patient presents with worsening wound. The complaints affect the right leg. mh7 Context: The problem was sustained at a fci or assisted living facility, resulted from an unknown cause, the patient is not able to bear weight, the patient is not able to ambulate, s/p right BKA. Onset: The symptoms/episode began/occurred today. Modifying factors: The symptoms are alleviated by nothing. the symptoms are aggravated by nothing. 20:45 Associated signs and symptoms: Pertinent negatives fever, nausea, numbness, rash, mh7 swelling, tingling, vomiting, warmth, weakness. 20:45 Treatment prior to arrival includes: no previous treatment. Severity of symptoms: At mh7 their worst the symptoms were moderate, earlier today, in the emergency department the symptoms are unchanged. 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 - Social history:: Smoking status: Patient/guardian denies using tobacco. ROS: 20:45 Constitutional: Negative for fever, chills, and weight loss, Eyes: Negative for injury, mh7 pain, redness, and discharge, ENT: Negative for injury, pain, and discharge, Neck: Negative for injury, pain, and swelling, Cardiovascular: Negative for chest pain, palpitations, and edema, Respiratory: Negative for shortness of breath, cough, wheezing, and pleuritic chest pain, Abdomen/GI: Negative for abdominal pain, nausea, vomiting, diarrhea, and constipation, Back: Negative for injury and pain, : Negative for injury, bleeding, discharge, and swelling, Neuro: Negative for headache, weakness, numbness, tingling, and seizure, Psych: Negative for depression, anxiety, suicide ideation, homicidal ideation, and hallucinations, Allergy/Immunology: Negative for hives, rash, and allergies, Endocrine: Negative for neck swelling, polydipsia, polyuria, polyphagia, and marked weight changes, Hematologic/Lymphatic: Negative for swollen nodes, abnormal bleeding, and unusual bruising. Exam: 20:45 Constitutional: This is a well developed, well nourished patient who is awake, alert, mh7 and in no acute distress. Head/Face: Normocephalic, atraumatic. Eyes: Pupils equal round and reactive to light, extra-ocular motions intact. Lids and lashes normal. Conjunctiva and sclera are non-icteric and not injected. Cornea within normal limits. Periorbital areas with no swelling, redness, or edema. Neck: Trachea midline, no thyromegaly or masses palpated, and no cervical lymphadenopathy. Supple, full range of motion without nuchal rigidity, or vertebral point tenderness. No Meningismus. Chest/axilla: Normal chest wall appearance and motion. Nontender with no deformity. No lesions are appreciated. Cardiovascular: Regular rate and rhythm with a normal S1 and S2. No gallops, murmurs, or rubs. Normal PMI, no JVD. No pulse deficits. Respiratory: Lungs have equal breath sounds bilaterally, clear to auscultation and percussion. No rales, rhonchi or wheezes noted. No increased work of breathing, no retractions or nasal flaring. Abdomen/GI: Soft, non-tender, with normal bowel sounds. No distension or tympany. No guarding or rebound. No evidence of tenderness throughout. Back: No spinal tenderness. No costovertebral tenderness. Full range of motion. Psych: Awake, alert, with orientation to person, place and time. Behavior, mood, and affect are within normal limits. 20:45 Neuro: Orientation: is normal, Mentation: is normal, Memory: is normal, Cranial nerves: grossly normal, Cerebellar function: is grossly normal, Motor: is normal, Sensation: no obvious gross deficits, Gait: not tested. seizure activity, is not displayed by the patient, Abnormal movements: there are no abnormal movements. Vital Signs: 20:48 BP 148 / 65; Pulse 63; Resp 17; Pulse Ox 100% on R/A; kd3 20:58 Temp 98.4(O); 3 21:02 Weight 67.13 kg; Height 5 ft. 6 in. (167.64 cm); Pain 01/09; [facility] 22:33 BP 128 / 70; Pulse 61; Resp 17; Pulse Ox 100% on R/A; 3 09/10 01:43 BP 125 / 50; Pulse 67; Resp 18; Pulse Ox 99% on R/A; [facility] 09/09 21:02 Body Mass Index 23.89 (67.13 kg, 167.64 cm) [facility] MDM: 09/09 23:47 Differential diagnosis: wound necrosis, wound infection. Data reviewed: vital signs, [facility] nurses notes, EMS record, fci records, old medical records, lab test result(s), CBC, electrolytes, urinalysis, radiologic studies, plain films. Data interpreted: Pulse oximetry: on room air is 100 %. Interpretation: normal. Counseling: I had a detailed discussion with the patient and/or guardian regarding: the historical points, exam findings, and any diagnostic results supporting the discharge/admit diagnosis, lab results, radiology results, the need to transfer to another facility, [facility] does not immediately have the required specialist, continuity of care. Response to treatment: the patient's symptoms have mildly improved after treatment. 23:50 Patient medically screened. [facility] 09/09 20:55 Order name: CBC with Diff; Complete Time: 22:25 [facility] 09/09 20:55 Order name: Basic Metabolic Panel; Complete Time: 23:33 [facility] 09/09 20:55 Order name: LFT's; Complete Time: 23:33 [facility] 09/09 20:55 Order name: Protime (+inr); Complete Time: 21:57 [facility] 09/09 20:55 Order name: Ptt, Activated; Complete Time: 21:57 [facility] 09/09 20:55 Order name: Blood Culture Adult (2) [facility] 09/09 20:55 Order name: Saline Lock; Complete Time: 21:33 [facility] 09/09 20:55 Order name: COVID-19 SARS RT PCR (Document "Date of Onset" if Symptomatic); Complete [facility] Time: 22:41 09/09 20:55 Order name: Knee Right 3 View XRAY; Complete Time: 21:57 [facility] Administered Medications: 09/10 00:07 Drug: Zosyn (piperacillin-tazobactam) 3.375 grams Route: IVPB; Infused Over: 60 mins; kd3 Site: right antecubital; 00:52 Follow up: Response: No adverse reaction; Rate change 100 ml; IV Status: Completed kd3 infusion 00:07 Drug: morphine 2 mg Route: IVP; Infused Over: 4 mins; Site: right antecubital; kd3 00:52 Follow up: Response: No adverse reaction; Pain is decreased kd3 00:07 Drug: Zofran (Ondansetron) 4 mg Route: IVP; Site: right antecubital; kd3 00:52 Follow up: Response: No adverse reaction; Pain is decreased kd3 Disposition Summary: 09/09/21 23:50 Transfer Ordered Transfer Location: Other Acute Care Facility [facility] Reason: Higher level of care [facility] Condition: Stable mh7 Problem: an ongoing problem [facility] Symptoms: have improved mh7 Accepting Physician: Dr. Bautista(09/10/21 01:43) kd3 Diagnosis - Wound necrosis at surgical site, s/p Right BKA 7 Forms: - Medication Reconciliation Form 7 - SBAR form 7 Signatures: Dispatcher [employer] EDMS Rusty Schwartz, NUTRITIONAL HEALTH COACH-C NUTRITIONAL HEALTH COACH-Cla1 Koko Mccracken MD MD 7 Daja Torres RN RN kd3 Corrections: (The following items were deleted from the chart) 01:43 09/09 23:50 Dr. Bautista 7 kd3
[2021-09-10] MEDS ORDERED: NA CHLORIDE 0.9% 50 ML ONE (00:05)
[2021-09-10] MEDS ORDERED: MORPHINE 2 MG/ML SYR ONE (00:05)
[2021-09-10] MEDS ORDERED: PIPERACIL/TAZO 3.375 GM VIAL IV ONE (00:05)
[2021-09-10] MEDS ORDERED: ONDANSETRON 4 MG/2 ML VIAL ONE (00:05)
[2021-09-10 01:54] VITALS: TEMP 98.4
[2021-09-10 01:58] VITALS: BP 125/50; O2SAT 99
== END 2021-09-10 01:43 ==
LOC: ER 20:41
DX: T87.53 Necrosis of amputation stump, right lower extremity (principal); I10 Essential (primary) hypertension; Z20.822 Contact with and (suspected) exposure to COVID-19; Z88.5 Allergy status to narcotic agent; Z88.6 Allergy status to analgesic agent
CPT/HCPCS: 96365; 87040 ×2; 85025; 80048; 36415; 85610; 80076; 85730; 73562; 96375; 99284; U0003